=== PATIENT | male | born 1935 | race Caucasian/White ===

== ENCOUNTER 2019-11-03 20:17 | Inpatient (IN) | payer MEDICARE, BC ==
[2019-11-03] MEDS ORDERED: SODIUM CHLORIDE 0.9% 500 ML 500 ML IV ONE (21:07)
--- NOTE | 2019-11-03 21:28 | CT ---
EXAMINATION TYPE: CT brain wo con DATE OF EXAM: 11/03/2019 COMPARISON: None HISTORY: Weakness CT DLP: 1068.4 mGycm Automated exposure control for dose reduction was used. Head CT performed using departmental protocol FINDINGS: Cerebral vascular calcifications are present. There is cortical atrophy present. Periventricular whit e matter shows patchy low attenuation. Calvarium is intact. Paranasal sinuses and mastoid air cells a s visualized are normal. There is no hemorrhage or hydrocephalus. IMPRESSION: AGE-RELATED CHANGES OF ATROPHY AND PROBABLE CHRONIC SMALL VESSEL ISCHEMIA.
--- NOTE | 2019-11-03 21:29 | XR ---
EXAMINATION TYPE: XR chest 2V DATE OF EXAM: 11/03/2019 COMPARISON: NONE HISTORY: Altered mental status TECHNIQUE: Frontal and lateral views of the chest are obtained. FINDINGS: The heart is enlarged. There is blunting the costophrenic angles, obscured left heart bord er, left hemidiaphragm. No evident pneumothorax. Interstitium and central vascularity are prominent. There are leads present over the midline coursing towards the neck from inferiorly to the area scanne d. Generators present within the left pectoral region. There is a lead in the right ventricle. Aorta is dense. IMPRESSION: Congestive heart failure, sizable left pleural effusion and associated atelectasis, pneu monia not excluded. Postprocedural changes.
[2019-11-03 22:00] LABS: Anisocytosis Slight; Basophils # (A) 0.1 k/uL (0-0.2); Basophils % (A) 1 %; Eosinophils # (A) 0.6 k/uL (0-0.7); Eosinophils % (A) 4 %; HCT 40.9 % (39.0-53.0); HGB 12.8 gm/dL (13.0-17.5); Hypochromasia Moderate; Lymphocytes # (A) 5.2 k/uL (1.0-4.8); Lymphocytes % (A) 41 %; MCH 26.7 pg (25.0-35.0); MCHC 31.4 g/dL (31.0-37.0); MCV 85.1 fL (80.0-100.0); Mean Platelet Volume 7.6; Monocytes # (A) 0.8 k/uL (0-1.0); Monocytes % (A) 6 %; Neutrophils # (A) 5.7 k/uL (1.3-7.7); Neutrophils % (A) 45 %; Platelet Count 372 k/uL (150-450); RDW 16.3 % (11.5-15.5); WBC 12.8 k/uL (3.8-10.6)
[2019-11-03 22:09] LABS: Appearance,Urine Clear (Clear); Bacteria,Urine Moderate /hpf; Bilirubin,Urine Negative (Negative); Blood,Urine Negative (Negative); Color,Urine Yellow; Glucose,Urine (UA) Negative (Negative); Hyaline Casts,Urine 77 /lpf (0-2); Ketones,Urine Negative (Negative); Leukocyte Esterase,Urine Large (Negative); Mucus,Urine Rare /hpf; Nitrite,Urine Negative (Negative); PH, Urine 5.5 (5.0-8.0); Protein,Urine Negative (Negative); RBC,Urine 1 /hpf (0-5); Specific Gravity,Urine 1.011 (1.001-1.035); Squamous Epithelial Cell,Urine <1 /hpf (0-4); Urobilinogen,Urine <2.0 mg/dL (<2.0); WBC,Urine 27 /hpf (0-5)
[2019-11-03 22:10] LABS: Albumin 3.3 g/dL (3.5-5.0); Calcium 8.7 mg/dL (8.4-10.2); Potassium 3.8 mmol/L (3.5-5.1); Total Bilirubin 0.8 mg/dL (0.2-1.3); Total Protein 6.2 g/dL (6.3-8.2)
[2019-11-03 22:15] LABS: Partial Thromboplastin Time 26.1 sec (22.0-30.0); Prothrombin Time 10.6 sec (9.0-12.0)
[2019-11-03 22:21] LABS: Amphetamine Screen,Urine Not Detected (NotDetected); Barbiturate Screen,Urine Not Detected (NotDetected); Benzodiazepines Screen,Urine Not Detected (NotDetected); Cocaine Screen,Urine Not Detected (NotDetected); Methadone Screen, Urine Not Detected (NotDetected); Opiate Screen,Urine Detected (NotDetected); Oxycodone Screen, Urine Not Detected (NotDetected); Phencyclidine Screen,Urine Not Detected (NotDetected); Tricyclic Antidepressant,Urine Not Detected (NotDetected); Urn Cannabinoid Scrn Not Detected (NotDetected)
[2019-11-03] MEDS ORDERED: NALOXONE 0.4 MG/ML 1 ML VIAL IV PRN (23:29)
[2019-11-03] MEDS ORDERED: FUROSEMIDE 10 MG/ML 2 ML VIAL IV ONE (23:32)
--- NOTE | 2019-11-03 23:33 | ED ---
General Adult HPI - General Chief complaint: Altered Mental Status Stated complaint: Altered Mental Status Time Seen by Provider: 11/03/19 20:42 Source: patient, family, RN notes reviewed, old records reviewed Mode of arrival: wheelchair Limitations: altered mental status, physical limitation - History of Present Illness Initial comments: 84-year-old male patient past history CHF, COPD present to ED with daughter. Daughter reports that patient has been more tired than usual today. Patient states that he feels dizzy. Denies any focal area of pain. Denies any nausea vomiting diarrhea chest pain shortness of breath abdominal pain. Systemic: Pt denies fatigue, fever/chills, rash. Pt denies weakness, night sweats, weight loss. Neuro: Pt denies headache, visual disturbances, syncope or pre-syncope. HEENT: Pt denies ocular discharge or irritation, otalgia, rhinorrhea, pharyngitis or notable lymphadenopathy. Cardiopulmonary: Pt denies chest pain, SOB, heart palpitations, dyspnea on exertion. Abdominal/GI: Pt denies abdominal pain, n/v/d. : Pt denies dysuria, burning w/ urination, frequency/urgency. Denies new onset urinary or bowel incontinence. MSK: Pt denies myalgia, loss of strength or function in extremities. Neuro: Pt denies new onset weakness, paresthesias. - Related Data Allergies Allergy/AdvReac Type Severity Reaction Status Date / Time No Known Allergies Allergy Verified 11/03/19 20:29 Review of Systems ROS Statement: Those systems with pertinent positive or pertinent negative responses have been documented in the HPI. ROS Other: All systems not noted in ROS Statement are negative. Past Medical History Past Medical History: Heart Failure, COPD History of Any Multi-Drug Resistant Organisms: None Reported Additional Past Surgical History / Comment(s): pace maker 07/2019 Past Psychological History: No Psychological Hx Reported Smoking Status: Former smoker Past Alcohol Use History: None Reported Past Drug Use History: None Reported General Exam - General Exam Comments Initial Comments: Constitutional: NAD, AOX3, Pt has pleasant affect. HEENT: NC/AT, trachea midline, neck supple, no lymphadenopathy. Posterior pharynx non erythematous, without exudates. External ears appear normal, without discharge. Mucous membranes moist. Eyes PERRLA, EOM intact. There is no scleral icterus. No pallor noted. Cardiopulmonary: RRR, no murmurs, rubs or gallops, no JVD noted. Lower lung harp diminished left-sided.. No peripheral edema. Abdominal exam: Abdomen soft and non-distended. Abdomen non-tender to palpation in all 4 quadrants. Bowel sounds active in LLQ. No hepatosplenomegaly. No ecchymosis Neuro: CN II-XII intact. No nuchal rigidity. No raccon eyes, no mckeon sign, no hemotympanum. No cervical spinal tenderness. MSK: No posterior calf tenderness bilaterally, homans sign negative bilaterally. Posterior tibialis and radial pulse +2 bilaterally. Sensation intact in upper and lower extremities. Full active ROM in upper and lower extremities, 5/5 stregnth. Limitations: altered mental status, physical limitation Course Vital Signs 11/03/19 11/03/19 20:22 21:51 Temperature 98 F Pulse Rate 79 66 Respiratory 18 18 Rate Blood Pressure 87/54 120/66 O2 Sat by Pulse 96 95 Oximetry Medical Decision Making - Medical Decision Making 84-year-old male patient past history CHF, COPD present to ED with daughter. Daughter reports that patient has been more tired than usual today. Patient states that he feels dizzy. Denies any focal area of pain. Denies any nausea vomiting diarrhea chest pain shortness of breath abdominal pain. Pt VSS, afebrile. Physical exam displayed: Mild hypotension initially, stable at time of admission. Physical exam displayed diminish lower lung harp left side, other lung harp clear to ascultation. Laboratory investigations significant for mild leukocytosis of 12. Troponin negative. UA displayed urinary tract infection. Patient initiated on Rocephin. Brain CT displayed age-related changes of atrophy and probable chronic small vessel ischemia. Chest x-ray displayed congestive heart failure sizable left pleural effusion with associated atelectasis. EKG displayed paced rhythm. No prior for comparision. Patient will be admitted admitted for urinary tract infection, CHF exacerbation. Patient has no lower extremity edema. With administrated dose of Lasix. Case discussed with Dr. Hernandez. - Lab Data Result diagrams: 11/03/19 21:35 11/03/19 21:35 Lab Results 11/03/19 11/03/19 11/03/19 Range/Units 21:35 21:35 21:35 WBC 12.8 H (3.8-10.6) k/uL RBC 4.80 (4.30-5.90) m/uL Hgb 12.8 L (13.0-17.5) gm/dL Hct 40.9 (39.0-53.0) % MCV 85.1 (80.0-100.0) fL MCH 26.7 (25.0-35.0) pg MCHC 31.4 (31.0-37.0) g/dL RDW 16.3 H (11.5-15.5) % Plt Count 372 (150-450) k/uL Neutrophils % 45 % Lymphocytes % 41 % Monocytes % 6 % Eosinophils % 4 % Basophils % 1 % Neutrophils # 5.7 (1.3-7.7) k/uL Lymphocytes # 5.2 H (1.0-4.8) k/uL Monocytes # 0.8 (0-1.0) k/uL Eosinophils # 0.6 (0-0.7) k/uL Basophils # 0.1 (0-0.2) k/uL Manual Slide Review Performed Hypochromasia Moderate Anisocytosis Slight PT 10.6 (9.0-12.0) sec INR 1.0 (<1.2) APTT 26.1 (22.0-30.0) sec Sodium (137-145) mmol/L Potassium (3.5-5.1) mmol/L Chloride (98-107) mmol/L Carbon Dioxide (22-30) mmol/L Anion Gap mmol/L BUN (9-20) mg/dL Creatinine (0.66-1.25) mg/dL Est GFR (CKD-EPI)AfAm (>60 ml/min/1.73 sqM) Est GFR (CKD-EPI)NonAf (>60 ml/min/1.73 sqM) Glucose (74-99) mg/dL Calcium (8.4-10.2) mg/dL Total Bilirubin (0.2-1.3) mg/dL AST (17-59) U/L ALT (4-49) U/L Alkaline Phosphatase (38-126) U/L Ammonia (<30) umol/L Troponin I (0.000-0.034) ng/mL Total Protein (6.3-8.2) g/dL Albumin (3.5-5.0) g/dL Urine Color Yellow Urine Appearance Clear (Clear) Urine pH 5.5 (5.0-8.0) Ur Specific [place] 1.011 (1.001-1.035) Urine Protein Negative (Negative) Urine Glucose (UA) Negative (Negative) Urine Ketones Negative (Negative) Urine Blood Negative (Negative) Urine Nitrite Negative (Negative) Urine Bilirubin Negative (Negative) Urine Urobilinogen <2.0 (<2.0) mg/dL Ur Leukocyte Esterase Large H (Negative) Urine RBC 1 (0-5) /hpf Urine WBC 27 H (0-5) /hpf Ur Squamous Epith Cells <1 (0-4) /hpf Urine Bacteria Moderate H (None) /hpf Hyaline Casts 77 H (0-2) /lpf Urine Mucus Rare H (None) /hpf Urine Opiates Screen Detected H (NotDetected) Ur Oxycodone Screen Not Detected (NotDetected) Urine Methadone Screen Not Detected (NotDetected) Ur Propoxyphene Screen Not Detected (NotDetected) Ur Barbiturates Screen Not Detected (NotDetected) U Tricyclic Antidepress Not Detected (NotDetected) Ur Phencyclidine Scrn Not Detected (NotDetected) Ur Amphetamines Screen Not Detected (NotDetected) U Methamphetamines Scrn Not Detected (NotDetected) U Benzodiazepines Scrn Not Detected (NotDetected) Urine Cocaine Screen Not Detected (NotDetected) U Marijuana (THC) Screen Not Detected (NotDetected) 11/03/19 11/03/19 11/03/19 Range/Units 21:35 21:35 21:35 WBC (3.8-10.6) k/uL RBC (4.30-5.90) m/uL Hgb (13.0-17.5) gm/dL Hct (39.0-53.0) % MCV (80.0-100.0) fL MCH (25.0-35.0) pg MCHC (31.0-37.0) g/dL RDW (11.5-15.5) % Plt Count (150-450) k/uL Neutrophils % % Lymphocytes % % Monocytes % % Eosinophils % % Basophils % % Neutrophils # (1.3-7.7) k/uL Lymphocytes # (1.0-4.8) k/uL Monocytes # (0-1.0) k/uL Eosinophils # (0-0.7) k/uL Basophils # (0-0.2) k/uL Manual Slide Review Hypochromasia Anisocytosis PT (9.0-12.0) sec INR (<1.2) APTT (22.0-30.0) sec Sodium 137 (137-145) mmol/L Potassium 3.8 (3.5-5.1) mmol/L Chloride 100 (98-107) mmol/L Carbon Dioxide 30 (22-30) mmol/L Anion Gap 7 mmol/L BUN 17 (9-20) mg/dL Creatinine 1.05 (0.66-1.25) mg/dL Est GFR (CKD-EPI)AfAm 74 (>60 ml/min/1.73 sqM) Est GFR (CKD-EPI)NonAf 64 (>60 ml/min/1.73 sqM) Glucose 115 H (74-99) mg/dL Calcium 8.7 (8.4-10.2) mg/dL Total Bilirubin 0.8 (0.2-1.3) mg/dL AST 21 (17-59) U/L ALT 9 (4-49) U/L Alkaline Phosphatase 92 (38-126) U/L Ammonia <9 (<30) umol/L Troponin I <0.012 (0.000-0.034) ng/mL Total Protein 6.2 L (6.3-8.2) g/dL Albumin 3.3 L (3.5-5.0) g/dL Urine Color Urine Appearance (Clear) Urine pH (5.0-8.0) Ur Specific [place] (1.001-1.035) Urine Protein (Negative) Urine Glucose (UA) (Negative) Urine Ketones (Negative) Urine Blood (Negative) Urine Nitrite (Negative) Urine Bilirubin (Negative) Urine Urobilinogen (<2.0) mg/dL Ur Leukocyte Esterase (Negative) Urine RBC (0-5) /hpf Urine WBC (0-5) /hpf Ur Squamous Epith Cells (0-4) /hpf Urine Bacteria (None) /hpf Hyaline Casts (0-2) /lpf Urine Mucus (None) /hpf Urine Opiates Screen (NotDetected) Ur Oxycodone Screen (NotDetected) Urine Methadone Screen (NotDetected) Ur Propoxyphene Screen (NotDetected) Ur Barbiturates Screen (NotDetected) U Tricyclic Antidepress (NotDetected) Ur Phencyclidine Scrn (NotDetected) Ur Amphetamines Screen (NotDetected) U Methamphetamines Scrn (NotDetected) U Benzodiazepines Scrn (NotDetected) Urine Cocaine Screen (NotDetected) U Marijuana (THC) Screen (NotDetected) - EKG Data -: EKG Interpreted by Me EKG Comments: Ventricular rate 67, QRS 1:30, QT/QTc 456/481. Paced rhythm. Disposition Clinical Impression: UTI (urinary tract infection), CHF exacerbation Disposition: ADMITTED IP TO THIS HOSP Condition: Serious Is patient prescribed a controlled substance at d/c from ED?: No Referrals: Jerrell Lewis DO [Primary Care Provider] - 1-2 days
[2019-11-04] MEDS ORDERED: POTASSIUM CHLORIDE ER 20 MEQ TAB.ER PO STA (10:31)
[2019-11-04 10:56] VITALS: BMI 22.6
[2019-11-04] MEDS: FUROSEMIDE 10 MG/ML 4 ML VIAL IV SCH ×2 (11:37→20:57)
--- NOTE | 2019-11-04 12:24 | CONS ---
CONSULTATION REASON FOR CONSULTATION: Exacerbation of congestive heart failure and pleural effusion. Mr. Daniel Silva is an 84-year-old gentleman who is not a very good historian, does not seem to give me any meaningful history. He has had most of his care apparently in the [place] area. He has a pacemaker and I am not sure if this has been checked regularly or not and the indication for this device. He came into the hospital mainly with complaints of dizziness, lightheadedness and had some shortness of breath also. He came into the emergency room and daughter brought him in saying that he is exhausted, tired and dizzy. He also had some confusion. He denied any chest discomfort. There was some question of shortness of breath. PAST MEDICAL HISTORY: 1. Sick sinus syndrome with a permanent pacemaker details are unclear. 2. History of CHF and COPD. ALLERGIES: None. MEDICATIONS: At home according to the chart include Motrin, Lopressor 25 mg b.i.d., Lasix 20 mg b.i.d., omeprazole, Flomax 0.4 mg daily, Dilaudid p.r.n. 1 mg tablet and Neurontin. PHYSICAL EXAMINATION: On examination, blood pressure is 140/70, pulse rate is 70 per minute, regular, paced. HEENT: Unremarkable. Fundus was not examined by me. NECK: Supple. There is JVD of 1 cm. No carotid bruit. HEART exam reveals S1, S2 with a short systolic murmur. LUNGS revealed significantly diminished breath sounds on the left mid and lower zones suggestive of pleural effusion with dullness to percussion. Right-sided breath sounds are reasonably good. ABDOMEN is soft, nontender. LOWER EXTREMITIES reveal diminished pulses. CENTRAL NERVOUS SYSTEM grossly within normal limits. I did not do a detailed examination. Patient appears a bit confused. LABORATORY DATA: Suggests that the proBNP is 4770. Initial troponin is normal. Albumin is somewhat low. Potassium levels and renal function appears to be normal. IMPRESSION: 1. Exacerbation of systolic heart failure. 2. Left-sided pleural effusion based on clinical and x-ray evaluation. 3. Sick sinus syndrome with pacemaker details unavailable. RECOMMENDATION: I am recommending an echocardiogram to assess LV function. A pulmonary evaluation for the left pleural effusion, possible thoracentesis. We will give him IV Lasix 40 q.12 hours and check a BMP in the morning. Based on clinical course I will make further recommendations. Most of his medications including the beta alexandre have been resumed. Thank you very much for the consult. MMODL / IJN: [id number] /
--- NOTE | 2019-11-04 12:55 | US ---
EXAMINATION TYPE: US chest DATE OF EXAM: 11/04/2019 COMPARISON: NONE CLINICAL HISTORY: Markings for thoracentesis by pulmonary staff. TECHNIQUE: Targeted ultrasound of the posterior lower left hemithorax EXAM MEASUREMENTS: Left Pleural Effusion pocket size: 10.8 cm Left skin surface to fluid distance: 1.9 cm Left side marked for possible thoracentesis outside the dept. Pulmonologists are able to review the images in the patient?s EMR. IMPRESSIONS: Large left pleural effusion with greatest depth measured at 10.8 cm.
[2019-11-04] MEDS ORDERED: HYDROmorphone 2 MG TAB PO PRN (13:18)
[2019-11-04] MEDS ORDERED: ACETAMINOPHEN TAB 325 MG TAB PO PRN (13:28)
--- NOTE | 2019-11-04 14:24 | P.HPIM ---
History of Present Illness 84-year-old pleasant male with possible history of dementia, history of CHF COPD was brought in because patient was confused. Patient is almost alert oriented 2-3 , patient believes it's 2001. Patient was feeling dizzy as well was complaining of shortness of breath along with orthopnea unable to get the history of proximal nocturnal dyspnea was comparing of cough without sputum production patient denied any fever chills dysuria patient does have leukocytosis mildly abnormal urine but no symptoms of urinary tract infection. Review of Systems REVIEW OF SYSTEMS: CONSTITUTIONAL: No fever, no malaise, no fatigue. HEENT: No recent visual problems or hearing problems. Denied any sore throat. CARDIOVASCULAR: no palpitations, no syncope. PULMONARY: no hemoptysis. GASTROINTESTINAL: No diarrhea, no nausea, no vomiting, no abdominal pain. NEUROLOGICAL: No headaches, no weakness, no numbness. HEMATOLOGICAL: Denies any bleeding or petechiae. GENITOURINARY: Denies any burning micturition, frequency, or urgency. MUSCULOSKELETAL/RHEUMATOLOGICAL: Denies any joint pain, swelling, or any muscle pain. ENDOCRINE: Denies any polyuria or polydipsia. The rest of the 14-point review of systems is negative. Past Medical History Past Medical History: Heart Failure, COPD History of Any Multi-Drug Resistant Organisms: None Reported Additional Past Surgical History / Comment(s): pace maker 07/2019 Past Psychological History: No Psychological Hx Reported Smoking Status: Former smoker Past Alcohol Use History: None Reported Past Drug Use History: None Reported Medications and Allergies Home Medications Medication Instructions Recorded Confirmed Type DULoxetine HCL [Cymbalta] 20 mg PO DAILY 11/04/19 11/04/19 History Furosemide [Lasix] 20 mg PO BID 11/04/19 11/04/19 History Gabapentin [Neurontin] 400 mg PO TID 11/04/19 11/04/19 History HYDROmorphone [Dilaudid] 1 mg PO QID PRN 11/04/19 11/04/19 History Ibuprofen [Motrin Ib] 600 mg PO BID PRN 11/04/19 11/04/19 History Metoprolol Tartrate [Lopressor] 25 mg PO BID 11/04/19 11/04/19 History Omeprazole 20 mg PO [id number] 11/04/19 11/04/19 History Tamsulosin HCl [Flomax] 0.4 mg PO HS 11/04/19 11/04/19 History Allergies Allergy/AdvReac Type Severity Reaction Status Date / Time No Known Allergies Allergy Verified 11/03/19 20:29 Physical Exam Vitals: Vital Signs Temp Pulse Pulse Resp BP BP Pulse Ox 11/04/19 07:45 98.2 F 74 17 148/79 96 11/04/19 06:00 77 20 109/88 95 11/04/19 05:30 84 20 124/87 96 11/04/19 05:00 70 18 143/66 95 11/04/19 04:30 73 20 122/90 95 11/04/19 04:22 71 18 122/90 96 11/04/19 03:00 79 18 175/86 11/04/19 02:31 79 18 116/71 11/04/19 00:03 71 18 121/71 95 11/03/19 21:51 66 18 120/66 95 11/03/19 20:22 98 F 79 18 87/54 96 Intake and Output 11/03/19 11/04/19 11/04/19 22:59 06:59 14:59 Other: Voiding Method Urinal Weight 67.585 kg 67.585 kg PHYSICAL EXAMINATION: GENERAL: The patient is alert and oriented x3, not in any acute distress. Well developed, well nourished. HEENT: Pupils are round and equally reacting to light. EOMI. No scleral icterus. No conjunctival pallor. Normocephalic, atraumatic. No pharyngeal erythema. No thyromegaly. CARDIOVASCULAR: S1 and S2 present. No murmurs, rubs, or gallops. PULMONARY:Mr. crackles no wheezing was appreciated ABDOMEN: Soft, nontender, nondistended, normoactive bowel sounds. No palpable organomegaly. MUSCULOSKELETAL: No joint swelling or deformity. EXTREMITIES: No cyanosis, clubbing, or pedal edema. NEUROLOGICAL: Gross neurological examination did not reveal any focal deficits. SKIN: No rashes. Results CBC & Chem 7: 11/03/19 21:35 11/03/19 21:35 Labs: Abnormal Lab Results - Last 24 Hours (Table) 11/03/19 11/03/19 11/03/19 Range/Units 21:35 21:35 21:35 WBC 12.8 H (3.8-10.6) k/uL Hgb 12.8 L (13.0-17.5) gm/dL RDW 16.3 H (11.5-15.5) % Lymphocytes # 5.2 H (1.0-4.8) k/uL Glucose 115 H (74-99) mg/dL Total Protein 6.2 L (6.3-8.2) g/dL Albumin 3.3 L (3.5-5.0) g/dL Ur Leukocyte Esterase Large H (Negative) Urine WBC 27 H (0-5) /hpf Urine Bacteria Moderate H (None) /hpf Hyaline Casts 77 H (0-2) /lpf Urine Mucus Rare H (None) /hpf Urine Opiates Screen Detected H (NotDetected) Microbiology - Last 24 Hours (Table) 11/03/19 21:35 Urine Culture - Preliminary Urine,Clean Catch Assessment and Plan Plan: -altered mental status secondary to metabolic encephalopathy from heart failure exacerbation. Patient will continued on Lasix -Shortness of breath and acute hypoxic respiratory failure secondary to bilateral pleural effusion predominantly in the left side left side may need drainage. Patient probably has heart failure exacerbation. 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
[2019-11-04] MEDS: GABAPENTIN 400 MG CAP PO SCH ×2 (17:10→20:57)
[2019-11-04] MEDS: ENOXAPARIN 40 MG/0.4 ML SYRINGE SQ SCH (17:10)
[2019-11-04] MEDS: METOPROLOL TARTRATE 12.5 MG TAB PO SCH (20:57)
[2019-11-04] MEDS: TAMSULOSIN 0.4 MG CAP.ER.24H PO SCH (20:57)
[2019-11-05] MEDS: FUROSEMIDE 10 MG/ML 4 ML VIAL IV SCH ×2 (08:49→21:22)
[2019-11-05] MEDS: ENOXAPARIN 40 MG/0.4 ML SYRINGE SQ SCH (08:50)
[2019-11-05] MEDS: PANTOPRAZOLE 40 MG TABLET PO SCH (08:50)
[2019-11-05] MEDS: GABAPENTIN 400 MG CAP PO SCH ×3 (08:50→21:21)
[2019-11-05] MEDS: METOPROLOL TARTRATE 12.5 MG TAB PO SCH ×2 (08:50→21:22)
[2019-11-05] MEDS: DULoxetine HCL 20 MG CAPSULE.DR PO SCH (08:50)
[2019-11-05 08:55] LABS: Anisocytosis Slight; Basophils # (A) 0.1 k/uL (0-0.2); Basophils % (A) 1 %; Eosinophils # (A) 0.3 k/uL (0-0.7); Eosinophils % (A) 2 %; Hypochromasia Marked; Lymphocytes # (A) 4.8 k/uL (1.0-4.8); Lymphocytes % (A) 36 %; MCH 27.3 pg (25.0-35.0); MCHC 31.9 g/dL (31.0-37.0); MCV 85.6 fL (80.0-100.0); Mean Platelet Volume 8.3; Monocytes # (A) 0.8 k/uL (0-1.0); Monocytes % (A) 6 %; Neutrophils # (A) 6.8 k/uL (1.3-7.7); Neutrophils % (A) 52 %; Platelet Count 419 k/uL (150-450); Poikilocytosis Slight; RBC 5.14 m/uL (4.30-5.90); WBC 13.2 k/uL (3.8-10.6)
[2019-11-05 09:26] LABS: Calcium 9.2 mg/dL (8.4-10.2); Potassium 3.3 mmol/L (3.5-5.1)
--- NOTE | 2019-11-05 10:05 | P.CNPUL ---
History of Present Illness Consult date: 11/05/19 Requesting physician: Leandra Hough Reason for consult: dyspnea, abnormal CXR/CT Chief complaint: Fatigue, dizziness History of present illness: this is an 84-year-old gentleman who follows with Dr. Naranjo as his PCP. He has a history of congestive heart failure, per minutes pacemaker implantation in July 2019, chronic obstructive pulmonary disease, former smoker.He has somewhat of a poor historian. He was brought into the emergency room on 11/03/2019 by his daughter with complaints of fatigue and dizziness.computed tomography scan of the brain revealed age-related atrophy and probable chronic small vessel ischemia but no acute intracranial abnormalities.chest x-ray did reveal a moderate left-sided pleural effusionand evidence of congestive heart failure. Associated atelectasis. Ultrasound of the left chest did reveal a 10.8 cm pocket. The patient is being diuresed. He requested to try medication prior to having a thoracentesis performed. White count 13.2. Hemoglobin 14.0. Sodium 140. Potassium 3.3. Creatinine 0.98. He is currently on Lasix 40 mg IV every 12 hours.no accurate I&O. The patient is incontinent. he is currently quite comfortable at rest. He is maintaining O2 saturations at 98% on room air. He's afebrile. Hemodynamically stable. Review of Systems REVIEW OF SYSTEMS: CONSTITUTIONAL: Fatigue, dizziness. Denies any recent significant weight loss or weight gain. EYES: Denies change in vision. EARS, NOSE, MOUTH, THROAT: Denies headaches, denies sore throat. CARDIOVASCULAR: Denies chest pain, palpitations or syncopal episodes. RESPIRATORY: Denies shortness of breath, cough, congestion or hemoptysis. GASTROINTESTINAL: Denies change in appetite, denies abdominal pain GENITOURINARY: Denies hematuria, denies infections. MUSKULOSKELETAL: Denies pain, denies swelling. INTEGUMENTARY: Denies rash, denies eczema. NEUROLOGICAL: Denies recent memory loss, no recent seizure activity. PSYCHIATRIC: Denies anxiety, denies depression. HEMATOLOGIC/LYMPHATIC: Denies anemia, denies enlarged lymph nodes. Past Medical History Past Medical History: Heart Failure, COPD History of Any Multi-Drug Resistant Organisms: None Reported Additional Past Surgical History / Comment(s): pace maker 07/2019 Past Psychological History: No Psychological Hx Reported Smoking Status: Former smoker Past Alcohol Use History: None Reported Past Drug Use History: None Reported Medications and Allergies Home Medications Medication Instructions Recorded Confirmed Type DULoxetine HCL [Cymbalta] 20 mg PO DAILY 11/04/19 11/04/19 History Furosemide [Lasix] 20 mg PO BID 11/04/19 11/04/19 History Gabapentin [Neurontin] 400 mg PO TID 11/04/19 11/04/19 History HYDROmorphone [Dilaudid] 1 mg PO QID PRN 11/04/19 11/04/19 History Ibuprofen [Motrin Ib] 600 mg PO BID PRN 11/04/19 11/04/19 History Metoprolol Tartrate [Lopressor] 25 mg PO BID 11/04/19 11/04/19 History Omeprazole 20 mg PO AC-[id number] 11/04/19 11/04/19 History Tamsulosin HCl [Flomax] 0.4 mg PO HS 11/04/19 11/04/19 History Allergies Allergy/AdvReac Type Severity Reaction Status Date / Time No Known Allergies Allergy Verified 11/03/19 20:29 Physical Exam Vitals: Vital Signs Temp Pulse Resp BP BP Pulse Ox 11/05/19 07:28 97.9 F 109 H 18 130/67 98 11/05/19 02:00 97.7 F 88 20 105/68 94 L 11/05/19 00:00 17 11/04/19 20:00 95 17 11/04/19 19:46 98 F 95 17 108/66 96 11/04/19 14:18 97.9 F 94 17 119/76 91 L Intake and Output 11/04/19 11/05/19 11/05/19 22:59 06:59 14:59 Intake Total 0 Balance 0 Intake: Oral 0 Other: Voiding Method Urinal Urinal Diaper Diaper Incontinent Incontinent # Voids 1 2 # Bowel Movements 1 Weight 67.585 kg GENERAL EXAM: Alert, pleasant 84-year-old gentleman, on room air,, comfortable in no apparent distress. HEAD: Normocephalic. EYES: Normal reaction of pupils, equal size. NOSE: Clear with pink turbinates. THROAT: No erythema or exudates. NECK: No masses, no JVD. CHEST: No chest wall deformity. LUNGS: Equal air entry with basilar crackles more so on the left, dull, diminish ed. CVS: S1 and S2 normal with no audible murmur, regular rhythm. ABDOMEN: No hepatosplenomegaly, normal bowel sounds, no guarding or rigidity. SPINE: No scoliosis or deformity SKIN: No rashes CENTRAL NERVOUS SYSTEM: No focal deficits, tone is normal in all 4 extremities. EXTREMITIES: There is no peripheral edema. No clubbing, no cyanosis. Peripheral pulses are intact. Results - Laboratory Findings CBC and BMP: 11/05/19 08:02 11/05/19 08:02 PT/INR, D-dimer PT 10.6 sec (9.0-12.0) 11/03/19 21:35 INR 1.0 (<1.2) 11/03/19 21:35 Abnormal lab findings: Abnormal Labs 11/03/19 11/03/19 11/03/19 21:35 21:35 21:35 WBC 12.8 H Hgb 12.8 L RDW 16.3 H Lymphocytes # 5.2 H Potassium Glucose 115 H Total Protein 6.2 L Albumin 3.3 L Ur Leukocyte Esterase Large H Urine WBC 27 H Urine Bacteria Moderate H Hyaline Casts 77 H Urine Mucus Rare H Urine Opiates Screen Detected H 11/05/19 11/05/19 08:02 08:02 WBC 13.2 H Hgb RDW 16.0 H Lymphocytes # Potassium 3.3 L Glucose 150 H Total Protein Albumin Ur Leukocyte Esterase Urine WBC Urine Bacteria Hyaline Casts Urine Mucus Urine Opiates Screen - Diagnostic Findings Chest x-ray: image reviewed Assessment and Plan Assessment: 1 Acute exacerbation of her suspected systolic congestive heart failure 2 Moderate left-sided pleural effusion measuring 10.8 cm on ultrasound 3 History of sick sinus syndrome status post permanent pacemaker implantation 4 History of chronic obstructive pulmonary disease 5 History ofprevious chronic tobacco dependence 6 Dementia Plan: The patient was seen and evaluated by Dr. Villeda Chest x-ray, ultrasound and labs reviewed The patient is in no pulmonary distress On room air We'll continue with diuretics Hold off on thoracentesis for now per patient request We'll continue to follow and make further recommendations based on his clinical status I, the cosigning physician, performed a history & physical examination of the patient. Lungs sounds with crackles in the posterior bases left greater than right, dullness, diminished. Maintaining good O2 saturations in the 90s on room air. I discussed the assessment and plan of care with my nurse practitioner, Gricelda Dunbar. I attest to the above consultation as dictated by her. Time with Patient: Greater than 30
--- NOTE | 2019-11-05 15:25 | P.PN ---
Subjective Progress Note Date: 11/05/19 Principal diagnosis: 84-year-old pleasant male with possible history of dementia, history of CHF COPD was brought in because patient was confused. Patient is almost alert oriented 2-3 , patient believes it's 2001. Patient was feeling dizzy as well was complaining of shortness of breath along with orthopnea unable to get the history of proximal nocturnal dyspnea was comparing of cough without sputum production patient denied any fever chills dysuria patient does have leukoc ytosis mildly abnormal urine but no symptoms of urinary tract infection. 11/05/2019 Patient is seen and evaluated in follow-up today and is lethargic but arousable. Patient is alert and oriented 3 responding to questions and commands appropriately. Patient continues to have some shortness of breath with exertion and is being evaluated by pulmonary. Patient underwent a chest ultrasound showing a large left pleural effusion. Patient is currently being diuresed with IV Lasix 40 mg twice daily and will continue at this time. Discussion of possible thoracentesis in the future if no improvement with diuresis. Initial urine culture showing preliminary gram-negative bacilli. Patient is asym ptomatic of any dysuria and will repeat urine culture. Currently no reports of chest pain or palpitations. Patient is afebrile. No reports of nausea or vomiting and patient is tolerating diet. Physical therapy to evaluate the patient. Objective - Vital Signs Vital signs: Vital Signs Temp 97.9 F 11/05/19 07:28 Pulse 109 H 11/05/19 07:28 Resp 18 11/05/19 07:28 BP 130/67 11/05/19 07:28 Pulse Ox 98 11/05/19 07:28 Intake & Output 11/04/19 11/05/19 11/05/19 18:59 06:59 18:59 Intake Total 0 Output Total 200 Balance -200 0 Weight 67.585 kg 67.585 kg Intake: Oral 0 Output: Urine 200 Other: Voiding Method Urinal Urinal Urinal Diaper Diaper Incontinent Incontinent # Voids 2 # Bowel Movements 1 - Exam GENERAL: The patient is alert and oriented x3, not in any acute distress. Well developed, well nourished. HEENT: Pupils are round and equally reacting to light. EOMI. No scleral icterus. No conjunctival pallor. Normocephalic, atraumatic. No pharyngeal erythema. No thyromegaly. CARDIOVASCULAR: S1 and S2 present. No murmurs, rubs, or gallops. PULMONARY: Diminished breath sounds at the bases with some scattered crackles noted. No wheezing noted on exam ABDOMEN: Soft, nontender, nondistended, normoactive bowel sounds. No palpable organomegaly. MUSCULOSKELETAL: No joint swelling or deformity. EXTREMITIES: No cyanosis, clubbing, or pedal edema. NEUROLOGICAL: Gross neurological examination did not reveal any focal deficits. SKIN: No rashes. - Labs CBC & Chem 7: 11/05/19 08:02 11/05/19 08:02 Labs: Abnormal Lab Results - Last 24 Hours (Table) 11/05/19 11/05/19 Range/Units 08:02 08:02 WBC 13.2 H (3.8-10.6) k/uL RDW 16.0 H (11.5-15.5) % Potassium 3.3 L (3.5-5.1) mmol/L Glucose 150 H (74-99) mg/dL Microbiology - Last 24 Hours (Table) 11/03/19 21:35 Urine Culture - Preliminary Urine,Clean Catch Gram Neg Bacilli 11/03/19 22:59 Blood Culture - Preliminary Blood No Growth after 24 hours Assessment and Plan Assessment: -altered mental status secondary to metabolic encephalopathy from heart failure exacerbation. Patient remains on IV Lasix 40 mg twice daily -Shortness of breath and acute hypoxic respiratory failure secondary to bilateral pleural effusion predominantly in the left side left side may need drainage. Patient probably has heart failure exacerbation. Will continue with IV diuresis at this time. Pulmonary following. -congestive heart failure possibly of chronic systolic dysfunction with acute exacerbation echocardiogram will be obtained continue with Lasix -asymptomatic bacteriuria without any evidence of urinary tract infection, urine culture preliminary showing gram-negative bacilli, will repeat urine culture, patient denies any symptoms of dysuria or burning with urination -COPD without any acute exacerbation -history of bradycardia , presently has a pacemaker which was placed inflammatory 2019 -depression -Gastroesophageal reflux disease -Peripheral neuropathy for which patient is on gabapentin which will be continued -Possible senile dementia - DVT prophylaxis with the Lovenox subcutaneous
[2019-11-05] MEDS: TAMSULOSIN 0.4 MG CAP.ER.24H PO SCH (21:21)
[2019-11-06] MEDS: FUROSEMIDE 10 MG/ML 4 ML VIAL IV SCH ×2 (07:50→20:14)
[2019-11-06] MEDS: ENOXAPARIN 40 MG/0.4 ML SYRINGE SQ SCH (07:51)
[2019-11-06] MEDS: GABAPENTIN 400 MG CAP PO SCH ×3 (07:51→20:13)
[2019-11-06] MEDS: DULoxetine HCL 20 MG CAPSULE.DR PO SCH (07:51)
[2019-11-06] MEDS: METOPROLOL TARTRATE 12.5 MG TAB PO SCH ×2 (07:51→20:14)
[2019-11-06] MEDS: PANTOPRAZOLE 40 MG TABLET PO SCH (07:51)
--- NOTE | 2019-11-06 08:36 | P.PN ---
Subjective Progress Note Date: 11/05/19 This is a pleasant 84-year-old male past medical history significant for sick sinus syndrome status post permanent pacemaker implantation, congestive heart failure and COPD. He is a poor historian and information is obtained from the medical record. Ultrasound of the chest reveals a large left pleural effusion with greatest depth measured at 10.8 cm. Has been seen in evaluation by Dr. Smith RN per the patient requests no thoracentesis at this time. Currently maintained on Lasix 40 mg IV twice a day and Lopressor 12.5 mg twice a day. Blood pressure 130/67 heart rate 109 afebrile maintaining oxygen saturation on room air. Laboratory data reviewed, WBC 13.2, hemoglobin 14, platelets 419, sodium 140, potassium 3.3, creatinine 0.98. Echocardiogram pending. Patient was seen and examined resting comfortably in bed in no acute distress. He denies worsening shortness of breath. No chest pain, dizziness or palpitations. GENERAL: Well-appearing, well-nourished and in no acute distress. NECK: Supple without JVD or thyromegaly. LUNGS: Breath sounds clear to auscultation bilaterally. Respiration equal and unlabored. No wheezes, rales or rhonchi. Diminished bilaterally. HEART: Irregular rate and rhythm without murmurs, rubs or gallops. S1 and S2 heard. EXTREMITIES: Normal range of motion, no edema. No clubbing or cyanosis. Peripheral pulses intact. ASSESSMENT Acute exacerbation of systolic heart failure, unknown if acute or chronic. Left-sided pleural effusion Sick sinus syndrome status post permanent pacemaker implantation Hypokalemia Leukocytosis PLAN Echocardiogram to be obtained. Follow electrolytes and renal function in the morning. Further recommendations to follow based upon clinical course. Nurse Practitioner note has been reviewed, I agree with a documented findings and plan of care. Patient was seen and examined. Objective - Vital Signs Vital signs: Vital Signs Temp 97.8 F 11/06/19 07:00 Pulse 93 11/06/19 07:00 Resp 22 11/06/19 07:00 BP 114/72 11/06/19 07:00 Pulse Ox 95 11/06/19 07:00 Intake & Output 11/05/19 11/06/19 11/06/19 18:59 06:59 18:59 Intake Total 540 Output Total 350 Balance 540 -350 Weight 67.585 kg Intake: Oral 540 Output: Urine 350 Other: Voiding Method Urinal Diaper Incontinent # Voids 3 2 # Bowel Movements 1 - Labs CBC & Chem 7: 11/05/19 08:02 11/05/19 08:02 Labs: Abnormal Lab Results - Last 24 Hours (Table) 11/05/19 11/05/19 Range/Units 08:02 08:02 WBC 13.2 H (3.8-10.6) k/uL RDW 16.0 H (11.5-15.5) % Potassium 3.3 L (3.5-5.1) mmol/L Glucose 150 H (74-99) mg/dL Microbiology - Last 24 Hours (Table) 11/03/19 22:59 Blood Culture - Preliminary Blood No Growth after 48 hours 11/03/19 21:35 Urine Culture - Preliminary Urine,Clean Catch Gram Neg Bacilli
[2019-11-06 10:13] LABS: Calcium 9.4 mg/dL (8.4-10.2); Potassium 3.6 mmol/L (3.5-5.1)
--- NOTE | 2019-11-06 12:17 | XR ---
EXAMINATION TYPE: XR chest 1V DATE OF EXAM: 11/06/2019 COMPARISON: 11/03/2019 HISTORY: Shortness of breath TECHNIQUE: Single frontal view of the chest is obtained. FINDINGS: Cardiac device noted and there is evidence of a stimulator device. Surgical clips in the u pper abdomen. There is a moderate-sized left pleural effusion and tiny right pleural effusion. Basila r consolidation noted. Diffuse osteopenia with arthropathy of the shoulders. Heart is enlarged. Ather osclerotic change aorta. IMPRESSION: 1. Moderate left and small right pleural effusion with suspected compressive atelectasis and underlyi ng COPD. 2. Mild chronic interstitial venous congestion suspected.
--- NOTE | 2019-11-06 14:53 | P.PN ---
Subjective This is a pleasant 84-year-old male past medical history significant for sick sinus syndrome status post permanent pacemaker implantation, congestive heart failure and COPD. He is a poor historian and information is obtained from the medical record. Ultrasound of the chest reveals a large left pleural effusion with greatest depth measured at 10.8 cm. Has been seen in evaluation by Dr. Smith RN per the patient requests no thoracentesis at this time. Currently maintained on Lasix 40 mg IV twice a day and Lopressor 12.5 mg twice a day. Blood pressure 130/67 heart rate 109 afebrile maintaining oxygen saturation on room air. Laboratory data reviewed, WBC 13.2, hemoglobin 14, platelets 419, sodium 140, potassium 3.3, creatinine 0.98. Echocardiogram pending. Patient was seen and examined resting comfortably in bed in no acute distress. He denies worsening shortness of breath. No chest pain, dizziness or palpitations. 11/06/2019 Pt is seen and examined sitting up in the chair in no acute distress. He denies shortness of breath at rest or with exertion. He is maintaining oxygen saturation on room air. He has no chest pain, dizziness or palpitations. Blood pressure 114/72 heart rate 93 afebrile. Laboratory data reviewed, sodium 139, potassium 3.6, creatinine 1.11. Repeat chest x-ray today reveals moderate left and small right pleural effusion suspected compressive atelectasis and underlying COPD. There is also mild chronic interstitial venous congestion noted. Currently maintained on Lopressor 12.5 mg twice a day and Lasix 40 mg twice a day IV. Pt does not recall who is stick welder is, when he got his pacemaker or who monitors his pacemaker. GENERAL: Well-appearing, well-nourished and in no acute distress. NECK: Supple without JVD or thyromegaly. LUNGS: Breath sounds clear to auscultation bilaterally. Respiration equal and unlabored. No wheezes, rales or rhonchi. Diminished bilaterally. HEART: Irregular rate and rhythm without murmurs, rubs or gallops. S1 and S2 heard. EXTREMITIES: Normal range of motion, no edema. No clubbing or cyanosis. Peripheral pulses intact. ASSESSMENT Acute exacerbation of systolic heart failure, unknown if acute or chronic. Left-sided pleural effusion Sick sinus syndrome status post permanent pacemaker implantation Hypokalemia, improved. Leukocytosis PLAN Transition to oral diuretics in the morning. Check lipid panel. Nurse Practitioner note has been reviewed, I agree with a documented findings and plan of care. Patient was seen and examined. Objective - Vital Signs Vital signs: Vital Signs Temp 97.8 F 11/06/19 07:00 Pulse 93 11/06/19 07:00 Resp 22 11/06/19 07:00 BP 114/72 11/06/19 07:00 Pulse Ox 95 11/06/19 07:00 Intake & Output 11/05/19 11/06/19 11/06/19 18:59 06:59 18:59 Intake Total 540 800 Output Total 350 Balance 540 -350 800 Weight 67.585 kg Intake: Oral 540 800 Output: Urine 350 Other: Voiding Method Urinal Urinal Diaper Diaper Incontinent Incontinent # Voids 3 2 1 # Bowel Movements 1 1 - Labs CBC & Chem 7: 11/05/19 08:02 11/06/19 08:50 Labs: Abnormal Lab Results - Last 24 Hours (Table) 11/06/19 Range/Units 08:50 Chloride 97 L (98-107) mmol/L BUN 23 H (9-20) mg/dL Glucose 167 H (74-99) mg/dL Microbiology - Last 24 Hours (Table) 11/03/19 21:35 Urine Culture - Final Urine,Clean Catch Klebsiella oxytoca 11/03/19 22:59 Blood Culture - Preliminary Blood No Growth after 48 hours
--- NOTE | 2019-11-06 15:17 | PN ---
PROGRESS NOTE PULMONARY/CRITICAL CARE PROGRESS NOTE: DATE OF SERVICE: 11/06/2019 This is an 84-year-old male with a history of abnormal chest x-ray and evidence of CHF. He was also found to have bilateral pleural effusion, left greater than right. Initially, the service offered him thoracentesis, but he would prefer to see if the fluid could be treated with just medications, which include primarily diuretics. The patient is relatively stable. He denies any shortness of breath, chest pain, chest discomfort, fever, chills, cough, phlegm production. Actually he is doing very well. Not requiring any supplemental oxygen. He does have a history of acute exacerbation of suspected systolic CHF, the left-sided pleural effusion greater than the right pleural effusion, sick sinus syndrome, status post permanent pacemaker implantation, COPD, previous chronic tobacco dependence and dementia. Again, the patient is resting comfortably. A repeat chest x-ray showed only modest improvement in the left chest. PHYSICAL EXAMINATION: VITAL SIGNS: Current vital signs are reviewed. Temperature is 97.8, heart rate 93, respiratory rate 22, blood pressure 114/72, mean 86, room-air saturation 96%. GENERAL APPEARANCE: He appears in no acute distress. HEENT: Examination is grossly unremarkable. NECK: Supple. Full range of motion. No adenopathy or thyromegaly. Neck veins are flat. CARDIOVASCULAR: Examination reveals regular rhythm and rate. Heart sounds are distant. Heart rate mid 90s. S1, S2 normal. A soft systolic murmur is noted. LUNGS: Lungs reveal diminished breath sounds at the bases with bibasilar crackles. Adventitious sounds are more prominent on the left side. ABDOMEN: Soft. Bowel sounds are heard. EXTREMITIES: Intact. There is no cyanosis, clubbing or significant edema. SKIN: Without rash. NEUROLOGIC: Neurologic examination is brief but nonfocal. Repeat chest x-ray is evaluated. LABS: Reviewed. Sodium 139, potassium 3.6, chloride 97, CO2 is 30, anion gap is 12. BUN and creatinine were 23 and 1.11. Microbiology is positive for a urine culture positive for Klebsiella oxytoca. Chest x-ray is reviewed. Medications are reviewed. ASSESSMENT: 1. Acute exacerbation of suspected systolic congestive heart failure. 2. Moderate left-sided pleural effusion and small right-sided pleural effusion; patient currently refusing thoracentesis at this time. 3. History of sick sinus syndrome, status post permanent pacemaker insertion. 4. Chronic obstructive pulmonary disease secondary to previous chronic tobacco dependence. 5. Dementia. 6. Klebsiella oxytoca urinary tract infection. PLAN: The patient seems to be doing rather well. He is not short of breath. He is not requiring any supplemental oxygen. The patient would prefer not to have a thoracentesis at this time. The patient's chest x-ray is reviewed. He remains on Rocephin for his urinary tract infection. The rest of his medications are appropriate. Clinically he looks well. Will continue to follow. MMODL / IJN: [id number] /
--- NOTE | 2019-11-06 15:46 | P.PN ---
Subjective Progress Note Date: 11/06/19 Principal diagnosis: 84-year-old pleasant male with possible history of dementia, history of CHF COPD was brought in because patient was confused. Patient is almost alert oriented 2-3 , patient believes it's 2001. Patient was feeling dizzy as well was complaining of shortness of breath along with orthopnea unable to get the history of proximal nocturnal dyspnea was comparing of cough without sputum production patient denied any fever chills dysuria patient does have leukoc ytosis mildly abnormal urine but no symptoms of urinary tract infection. 11/05/2019 Patient is seen and evaluated in follow-up today and is lethargic but arousable. Patient is alert and oriented 3 responding to questions and commands appropriately. Patient continues to have some shortness of breath with exertion and is being evaluated by pulmonary. Patient underwent a chest ultrasound showing a large left pleural effusion. Patient is currently being diuresed with IV Lasix 40 mg twice daily and will continue at this time. Discussion of possible thoracentesis in the future if no improvement with diuresis. Initial urine culture showing preliminary gram-negative bacilli. Patient is asym ptomatic of any dysuria and will repeat urine culture. Currently no reports of chest pain or palpitations. Patient is afebrile. No reports of nausea or vomiting and patient is tolerating diet. Physical therapy to evaluate the patient. 11/06/2019 Patient is seen and evaluated in follow-up today and is much more awake and alert sitting up in the chair. Patient denies any shortness of breath, chest pain, or palpitations. Repeat chest x-ray today shows moderate left and small right pleural effusion with suspected compressive atelectasis and underlying COPD, and mild chronic interstitial venous congestion. Patient continues to refuse thoracentesis at this time. Patient continues on IV Lasix. Patient underwent an echo and is currently pending at this time. Cardiology and pulmonary following. Patient's urine culture finalized showing Klebsiella oxytoca and IV Rocephin was initiated. Patient denies any episodes of nausea or vomiting and is tolerating diet. Objective - Vital Signs Vital signs: Vital Signs Temp 97.8 F 11/06/19 07:00 Pulse 93 11/06/19 07:00 Resp 22 11/06/19 07:00 BP 114/72 11/06/19 07:00 Pulse Ox 95 11/06/19 07:00 Intake & Output 11/05/19 11/06/19 11/06/19 18:59 06:59 18:59 Intake Total 540 200 Output Total 350 Balance 540 -350 200 Weight 67.585 kg Intake: Oral 540 200 Output: Urine 350 Other: Voiding Method Urinal Urinal Diaper Diaper Incontinent Incontinent # Voids 3 2 # Bowel Movements 1 - Exam GENERAL: The patient is alert and oriented x3, not in any acute distress. Well developed, well nourished. HEENT: Pupils are round and equally reacting to light. EOMI. No scleral icterus. No conjunctival pallor. Normocephalic, atraumatic. No pharyngeal erythema. No thyromegaly. CARDIOVASCULAR: S1 and S2 present. No murmurs, rubs, or gallops. PULMONARY: Diminished breath sounds at the bases with some scattered crackles noted. No wheezing noted on exam ABDOMEN: Soft, nontender, nondistended, normoactive bowel sounds. No palpable organomegaly. MUSCULOSKELETAL: No joint swelling or deformity. EXTREMITIES: No cyanosis, clubbing, or pedal edema. NEUROLOGICAL: Gross neurological examination did not reveal any focal deficits. SKIN: No rashes. - Labs CBC & Chem 7: 11/05/19 08:02 11/06/19 08:50 Labs: Abnormal Lab Results - Last 24 Hours (Table) 11/06/19 Range/Units 08:50 Chloride 97 L (98-107) mmol/L BUN 23 H (9-20) mg/dL Glucose 167 H (74-99) mg/dL Microbiology - Last 24 Hours (Table) 11/03/19 21:35 Urine Culture - Final Urine,Clean Catch Klebsiella oxytoca 11/03/19 22:59 Blood Culture - Preliminary Blood No Growth after 48 hours Assessment and Plan Assessment: -altered mental status secondary to metabolic encephalopathy from heart failure exacerbation. Patient remains on IV Lasix 40 mg twice daily -Shortness of breath and acute hypoxic respiratory failure secondary to bilateral pleural effusion predominantly in the left side left side may need drainage. Patient probably has heart failure exacerbation. Will continue with IV diuresis at this time. Pulmonary following. Patient continues to refuse thoracentesis at this time. -congestive heart failure possibly of chronic systolic dysfunction with acute exacerbation echocardiogram will be obtained continue with Lasix -asymptomatic bacteriuria without any evidence of urinary tract infection, urine culture preliminary showing gram-negative bacilli, will repeat urine culture, patient denies any symptoms of dysuria or burning with urination, urine culture finalized showing Klebsiella oxytoca and initiated IV Rocephin. 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
[2019-11-06] MEDS: TAMSULOSIN 0.4 MG CAP.ER.24H PO SCH (20:14)
--- NOTE | 2019-11-06 20:51 | ECHOF ---
Referral Reason:CHF MEASUREMENTS -------- HEIGHT: 172.7 cm WEIGHT: 67.6 kg BP: 89/52 IVSd: 1.2 cm (0.6 - 1.1) LVIDd: 3.8 cm (3.9 - 5.3) LVPWd: 1.3 cm (0.6 - 1.1) IVSs: 1.9 cm LVIDs: 3.2 cm LVPWs: 1.7 cm LA Diam: 3.3 cm (2.7 - 3.8) RVIDd: 3.4 cm (< 3.3) Ao Diam: 3.8 cm (2.0 - 3.7) AV Cusp: 2.3 cm (1.5 - 2.6) EPSS: 0.5 cm MV E Silver: 0.69 m/s MV DecT: 163 ms MV A Silver: 0.43 m/s MV E/A Ratio: 1.61 RAP: 5.00 mmHg RVSP: 25.41 mmHg MV EF SLOPE: 130.83 mm/s (70 - 150) MV EXCURSION: 23.60 mm (> 18.000) FINDINGS -------- Paced rhythm. This was a technically adequate study. The left ventricular size is normal. There is mild concentric left ventricular hypertrophy. Left ventricular systolic function is hyperdynamic with an estimated EF of >70%. The right ventricle is normal in size. The left atrial size is normal. The right atrium is normal in size. Interatrial and interventricular septum intact. There is mild aortic valve sclerosis. There is mild aortic regurgitation. Mild mitral annular calcification present. Mild mitral regurgitation is present. Mild tricuspid regurgitation present. Right ventricular systolic pressure is normal at < 35 mmHg. Trace/mild (physiologic) pulmonic regurgitation. The aortic root is dilated measuring 3.8cm. Normal inferior vena cava with normal inspiratory collapse consistent with estimated right atrial pre ssure of 5 mmHg. There is no pericardial effusion. CONCLUSIONS -------- 1. Paced rhythm. 2. This was a technically adequate study. 3. The left ventricular size is normal. 4. There is mild concentric left ventricular hypertrophy. 5. Left ventricular systolic function is hyperdynamic with an estimated EF of >70%. 6. The right ventricle is normal in size. 7. The left atrial size is normal. 8. The right atrium is normal in size. 9. Interatrial and interventricular septum intact. 10. There is mild aortic valve sclerosis. 11. There is mild aortic regurgitation. 12. Mild mitral annular calcification present. 13. Mild mitral regurgitation is present. 14. Mild tricuspid regurgitation present. 15. Right ventricular systolic pressure is normal at < 35 mmHg. 16. Trace/mild (physiologic) pulmonic regurgitation. 17. The aortic root is dilated measuring 3.8cm. 18. Normal inferior vena cava with normal inspiratory collapse consistent with estimated right atrial pressure of 5 mmHg. 19. There is no pericardial effusion. CHARITY FUNDRAISER: Ailyn Ruiz RDCS
[2019-11-07] MEDS: GABAPENTIN 400 MG CAP PO SCH ×3 (08:35→21:37)
[2019-11-07] MEDS: FUROSEMIDE 40 MG TAB PO SCH ×2 (08:35→16:20)
[2019-11-07] MEDS: METOPROLOL TARTRATE 12.5 MG TAB PO SCH ×2 (08:35→21:36)
[2019-11-07] MEDS: DULoxetine HCL 20 MG CAPSULE.DR PO SCH (08:35)
[2019-11-07] MEDS: ENOXAPARIN 40 MG/0.4 ML SYRINGE SQ SCH (08:35)
[2019-11-07] MEDS: PANTOPRAZOLE 40 MG TABLET PO SCH ×2 (08:38→08:39)
[2019-11-07 08:46] LABS: Cholesterol 166 mg/dL (<200); HDL Cholesterol 42 mg/dL (40-60); LDL Cholesterol,Calculated 103 mg/dL (0-99); Triglycerides 103 mg/dL (<150)
[2019-11-07] MEDS: ATORVASTATIN 40 MG TAB PO SCH (09:12)
[2019-11-07 11:13] LABS: Basophils # (A) 0.1 k/uL (0-0.2); Basophils % (A) 1 %; Eosinophils # (A) 0.5 k/uL (0-0.7); Eosinophils % (A) 3 %; HGB 13.8 gm/dL (13.0-17.5); Hypochromasia Marked; Lymphocytes % (A) 35 %; MCH 26.9 pg (25.0-35.0); MCHC 31.4 g/dL (31.0-37.0); MCV 85.5 fL (80.0-100.0); Mean Platelet Volume 9.8; Monocytes # (A) 0.9 k/uL (0-1.0); Monocytes % (A) 6 %; Neutrophils # (A) 9.4 k/uL (1.3-7.7); Neutrophils % (A) 55 %; Platelet Count 389 k/uL (150-450); RBC 5.14 m/uL (4.30-5.90); RDW 15.7 % (11.5-15.5); WBC 17.2 k/uL (3.8-10.6)
[2019-11-07 11:18] LABS: Calcium 9.5 mg/dL (8.4-10.2)
[2019-11-07 11:23] LABS: Potassium 4.4 mmol/L (3.5-5.1)
[2019-11-07 12:21] LABS: Anisocytosis (M) Present; Poikilocytosis (M) Present
--- NOTE | 2019-11-07 13:11 | P.PN ---
Subjective This is a pleasant 84-year-old male past medical history significant for sick sinus syndrome status post permanent pacemaker implantation, congestive heart failure and COPD. He is a poor historian and information is obtained from the medical record. Pt is seen and examined laying flat resting comfortably in bed in no acute distress. He denies shortness of breath, dizziness, palpitations or chest pain. He is quite comfortable. Laboratory data reviewed, LDL 103, HDL 42 and triglycerides 103. Blood pressure 95/63 heart rate 92 afebrile and main taining oxygen saturation on room air. Echocardiogram revealed hyperdynamic LV with ejection fraction greater than 70%, mild aortic valve sclerosis, mild aortic regurgitation, mild mitral regurgitation and mild tricuspid regurgitation noted. GENERAL: Well-appearing, well-nourished and in no acute distress. NECK: Supple without JVD or thyromegaly. LUNGS: Breath sounds clear to auscultation bilaterally. Respiration equal and unlabored. No wheezes, rales or rhonchi. Diminished bilaterally. Increased air exchange on the left base. HEART: Irregular rate and rhythm without murmurs, rubs or gallops. S1 and S2 heard. EXTREMITIES: Normal range of motion, no edema. No clubbing or cyanosis. Periph eral pulses intact. ASSESSMENT Acute exacerbation of diastolic heart failure, unknown if acute or chronic. Left-sided pleural effusion Sick sinus syndrome status post permanent pacemaker implantation Hypokalemia, improved. Leukocytosis Dyslipidemia PLAN Pt is clinically doing much better. Continue current medical regimen. Nurse Practitioner note has been reviewed, I agree with a documented findings and plan of care. Patient was seen and examined. Objective - Vital Signs Vital signs: Vital Signs Temp 97.9 F 11/07/19 07:00 Pulse 92 11/07/19 07:00 Resp 16 11/07/19 07:00 BP 95/63 11/07/19 07:00 Pulse Ox 91 L 11/07/19 07:00 Intake & Output 11/06/19 11/07/19 11/07/19 18:59 06:59 18:59 Intake Total 800 100 Balance 800 100 Intake: Oral 800 100 Other: Voiding Method Urinal Urinal Diaper Diaper Incontinent Incontinent # Voids 1 2 # Bowel Movements 1 1 - Labs CBC & Chem 7: 11/07/19 06:51 11/07/19 06:51 Labs: Abnormal Lab Results - Last 24 Hours (Table) 11/06/19 11/07/19 Range/Units 08:50 07:51 Chloride 97 L (98-107) mmol/L BUN 23 H (9-20) mg/dL Glucose 167 H (74-99) mg/dL LDL Cholesterol, Calc 103 H (0-99) mg/dL Microbiology - Last 24 Hours (Table) 11/03/19 22:59 Blood Culture - Preliminary Blood No Growth after 72 hours 11/03/19 21:35 Urine Culture - Final Urine,Clean Catch Klebsiella oxytoca
--- NOTE | 2019-11-07 16:01 | PN ---
PROGRESS NOTE PULMONARY/CRITICAL CARE PROGRESS NOTE: DATE OF SERVICE: 11/07/2019 This is an 84-year-old male with a history of CHF and pleural effusion bilaterally, left greater than right. We initially offered the patient thoracentesis, but he chose to refuse it, hoping that he could be treated with medications. Currently, he is not receiving any supplemental oxygen. He is not complaining of any difficulty breathing. The patient otherwise is feeling generally well. He does have a history of suspected systolic CHF, bilateral pleural effusions, left greater than right, sick sinus syndrome, status post permanent pacemaker implantation, COPD, previous history of chronic nicotine dependence, and dementia. Current vital signs are stable. Temperature is 97.9, heart rate 92, respiratory rate 16, blood pressure 95/63 mean 73, room air saturation 91%. Appears in no acute distress. HEENT: Examination is grossly unremarkable. No supplemental oxygen. NECK: Supple, full range of motion. No adenopathy. Neck veins are flat. CARDIOVASCULAR: Examination reveals regular rhythm and rate. Heart rate 92. S1, S2 normal. LUNGS: Reveal mostly clear breath sounds. There may be a few scattered bibasilar crackles. ABDOMEN: Soft. EXTREMITIES: Intact. No cyanosis, clubbing, or edema. SKIN: Without rash. NEUROLOGIC: Examination is brief, but nonfocal. LAB: Date is reviewed. White count 17.2, hemoglobin 13.8, hematocrit 44.0, platelet count normal. Sodium 136, potassium 4.4, chloride 96, CO2 is 31, anion gap is 9. BUN and creatinine were 32 and 0.98. The rest of the labs look okay. Microbiology showing evidence of Klebsiella oxytoca in the urine. A chest x-ray was done yesterday. One is ordered for tomorrow. ASSESSMENT: 1. Acute exacerbation of suspected systolic heart failure, stable. 2. Moderate left-sided pleural effusion, a small right-sided pleural effusion; patient currently refusing thoracentesis at this time. 3. History of sick sinus syndrome, status post permanent pacemaker insertion. 4. Chronic obstructive pulmonary disease, secondary to previous chronic tobacco dependence, stable. 5. History of dementia. 6. Klebsiella oxytoca urinary tract infection. PLAN: The patient is seen doing reasonably well. He is stable. Not requiring any supplemental oxygen. The patient still refuses thoracentesis. Will repeat a chest x- ray in the morning. No additional recommendations are made. He is being treated for his urinary tract infection with Rocephin. MMODL / IJN: [id number] /
--- NOTE | 2019-11-07 16:12 | P.PN ---
Subjective Progress Note Date: 11/07/19 Principal diagnosis: 84-year-old pleasant male with possible history of dementia, history of CHF COPD was brought in because patient was confused. Patient is almost alert oriented 2-3 , patient believes it's 2001. Patient was feeling dizzy as well was complaining of shortness of breath along with orthopnea unable to get the history of proximal nocturnal dyspnea was comparing of cough without sputum production patient denied any fever chills dysuria patient does have leukoc ytosis mildly abnormal urine but no symptoms of urinary tract infection. 11/05/2019 Patient is seen and evaluated in follow-up today and is lethargic but arousable. Patient is alert and oriented 3 responding to questions and commands appropriately. Patient continues to have some shortness of breath with exertion and is being evaluated by pulmonary. Patient underwent a chest ultrasound showing a large left pleural effusion. Patient is currently being diuresed with IV Lasix 40 mg twice daily and will continue at this time. Discussion of possible thoracentesis in the future if no improvement with diuresis. Initial urine culture showing preliminary gram-negative bacilli. Patient is asym ptomatic of any dysuria and will repeat urine culture. Currently no reports of chest pain or palpitations. Patient is afebrile. No reports of nausea or vomiting and patient is tolerating diet. Physical therapy to evaluate the patient. 11/06/2019 Patient is seen and evaluated in follow-up today and is much more awake and alert sitting up in the chair. Patient denies any shortness of breath, chest pain, or palpitations. Repeat chest x-ray today shows moderate left and small right pleural effusion with suspected compressive atelectasis and underlying COPD, and mild chronic interstitial venous congestion. Patient continues to refuse thoracentesis at this time. Patient continues on IV Lasix. Patient underwent an echo and is currently pending at this time. Cardiology and pulmonary following. Patient's urine culture finalized showing Klebsiella oxytoca and IV Rocephin was initiated. Patient denies any episodes of nausea or vomiting and is tolerating diet. 11/07/2019 Patient is seen in follow-up today with no acute overnight issues. Cardiology and pulmonary following. Patient is currently on room air with no reports of shortness of breath, chest pain, or palpitations. Patient is on oral Lasix twice daily and will continue at this time. Patient continues to refuse thorac entesis at this time. Patient is afebrile. No reports of nausea or vomiting noted patient is tolerating diet. Will repeat chest x-ray in the morning. Objective - Vital Signs Vital signs: Vital Signs Temp 98.3 F 11/07/19 15:00 Pulse 96 11/07/19 15:00 Resp 20 11/07/19 15:00 BP 96/64 11/07/19 15:00 Pulse Ox 94 L 11/07/19 15:00 Intake & Output 11/06/19 11/07/19 11/07/19 18:59 06:59 18:59 Intake Total 510 259 1435 Balance 939 231 6501 Weight 67.585 kg Intake: Oral 580 196 2381 Other: Voiding Method Urinal Urinal Urinal Diaper Diaper Diaper Incontinent Incontinent Incontinent # Voids 1 2 2 # Bowel Movements 1 1 - Exam GENERAL: The patient is alert and oriented x3, not in any acute distress. Well developed, well nourished. HEENT: Pupils are round and equally reacting to light. EOMI. No scleral icterus. No conjunctival pallor. Normocephalic, atraumatic. No pharyngeal erythema. No thyromegaly. CARDIOVASCULAR: S1 and S2 present. No murmurs, rubs, or gallops. PULMONARY: Diminished breath sounds at the bases with some scattered rhonchi noted. No wheezing noted on exam ABDOMEN: Soft, nontender, nondistended, normoactive bowel sounds. No palpable organomegaly. MUSCULOSKELETAL: No joint swelling or deformity. EXTREMITIES: No cyanosis, clubbing, or pedal edema. NEUROLOGICAL: Gross neurological examination did not reveal any focal deficits. SKIN: No rashes. - Labs CBC & Chem 7: 11/07/19 06:51 11/07/19 06:51 Labs: Abnormal Lab Results - Last 24 Hours (Table) 11/07/19 11/07/19 11/07/19 Range/Units 06:51 06:51 07:51 WBC 17.2 H (3.8-10.6) k/uL RDW 15.7 H (11.5-15.5) % Neutrophils # 9.4 H (1.3-7.7) k/uL Lymphocytes # 6.0 H (1.0-4.8) k/uL Sodium 136 L (137-145) mmol/L Chloride 96 L (98-107) mmol/L Carbon Dioxide 31 H (22-30) mmol/L BUN 32 H (9-20) mg/dL Glucose 150 H (74-99) mg/dL LDL Cholesterol, Calc 103 H (0-99) mg/dL Microbiology - Last 24 Hours (Table) 11/03/19 22:59 Blood Culture - Preliminary Blood No Growth after 72 hours Assessment and Plan Assessment: -altered mental status secondary to metabolic encephalopathy from heart failure exacerbation. Patient transitioned oral Lasix 40 mg twice daily -Shortness of breath and acute hypoxic respiratory failure secondary to bilateral pleural effusion predominantly in the left side left side may need drainage. Patient probably has heart failure exacerbation. Will continue with IV diuresis at this time. Pulmonary following. Patient continues to refuse thoracentesis at this time. -congestive heart failure possibly of diastolic dysfunction with acute exacerbation, echo shows overall left ventricular systolic function is hyperdynamic with an estimated EF of about 70% with some trace/mild pulmonic regurgitation along with mild mitral and tricuspid regurgitation present -Acute urinary tract infection with Klebsiella oxytoca on urine cultures. Aging continued on IV Rocephin -COPD without any acute exacerbation -history of bradycardia , presently has a pacemaker which was placed inflammatory 2019 -depression -Gastroesophageal reflux disease -Peripheral neuropathy for which patient is on gabapentin which will be continued -Possible senile dementia - DVT prophylaxis with the Lovenox subcutaneous
[2019-11-07 19:19] VITALS: RESP 16
[2019-11-07] MEDS: TAMSULOSIN 0.4 MG CAP.ER.24H PO SCH (21:36)
[2019-11-08 04:34] VITALS: TEMP 97.5
[2019-11-08 07:13] LABS: Appearance,Urine Clear (Clear); Bilirubin,Urine Negative (Negative); Blood,Urine Negative (Negative); Color,Urine Yellow; Glucose,Urine (UA) Negative (Negative); Ketones,Urine Trace (Negative); Leukocyte Esterase,Urine Negative (Negative); Nitrite,Urine Negative (Negative); PH, Urine 5.5 (5.0-8.0); Protein,Urine Negative (Negative); Specific Gravity,Urine 1.017 (1.001-1.035); Urobilinogen,Urine <2.0 mg/dL (<2.0)
[2019-11-08] MEDS: FUROSEMIDE 40 MG TAB PO SCH (07:23)
[2019-11-08] MEDS: METOPROLOL TARTRATE 12.5 MG TAB PO SCH (07:23)
[2019-11-08] MEDS: ATORVASTATIN 40 MG TAB PO SCH (07:23)
[2019-11-08] MEDS: GABAPENTIN 400 MG CAP PO SCH (07:23)
[2019-11-08] MEDS: DULoxetine HCL 20 MG CAPSULE.DR PO SCH (07:23)
[2019-11-08] MEDS: ENOXAPARIN 40 MG/0.4 ML SYRINGE SQ SCH (07:24)
[2019-11-08] MEDS ORDERED: PANTOPRAZOLE 40 MG TABLET PO STA (08:29)
--- NOTE | 2019-11-08 08:42 | XR ---
EXAMINATION TYPE: XR chest 1V DATE OF EXAM: 11/08/2019 COMPARISON: 11/06/2019 HISTORY: 84-year-old male follow-up shortness of breath TECHNIQUE: Single frontal view of the chest is obtained. FINDINGS: Left anterior chest wall pacemaker generator with right ventricular lead. Additional stimulator leads ascend along the right paramedian thorax. Heart remains borderline enlarged. Continued moderate left pleural effusion and retrocardiac opacity. Mild interstitial prominence in mild hyperinflation is un changed. IMPRESSION: COPD and borderline heart size with continued moderate left effusion with adjacent atelectasis and/or consolidation.
[2019-11-08 08:55] VITALS: BP 96/59; PULSE 88
[2019-11-08 10:09] LABS: Anisocytosis Slight; Basophils # (A) 0.1 k/uL (0-0.2); Basophils % (A) 1 %; Eosinophils # (A) 0.6 k/uL (0-0.7); Eosinophils % (A) 3 %; HCT 41.9 % (39.0-53.0); HGB 13.5 gm/dL (13.0-17.5); Hypochromasia Moderate; Lymphocytes # (A) 5.5 k/uL (1.0-4.8); Lymphocytes % (A) 33 %; MCH 27.2 pg (25.0-35.0); MCHC 32.2 g/dL (31.0-37.0); MCV 84.7 fL (80.0-100.0); Monocytes # (A) 0.8 k/uL (0-1.0); Monocytes % (A) 5 %; Neutrophils # (A) 9.3 k/uL (1.3-7.7); Neutrophils % (A) 56 %; Platelet Count 350 k/uL (150-450); RBC 4.95 m/uL (4.30-5.90); RDW 16.3 % (11.5-15.5); WBC 16.6 k/uL (3.8-10.6)
[2019-11-08 10:18] LABS: African American GFR (CKD) >90 (>60 ml/min/1.73 sqM); Anion Gap 10 mmol/L; Blood Urea Nitrogen 30 mg/dL (9-20); Calcium 8.9 mg/dL (8.4-10.2); Carbon Dioxide 29 mmol/L (22-30); Chloride 96 mmol/L (98-107); Glucose 163 mg/dL (74-99); Non-African American GFR(CKD) 78 (>60 ml/min/1.73 sqM); Sodium 135 mmol/L (137-145)
--- NOTE | 2019-11-08 14:59 | P.PN ---
Subjective This is a pleasant 84-year-old male past medical history significant for sick sinus syndrome status post permanent pacemaker implantation, congestive heart failure and COPD. He is a poor historian and information is obtained from the medical record. He is seen and examined resting comfortably lying completely flat in bed in no acute distress. He denies symptoms of chest pain, shortness of breath, dizziness or palpitations. Chest x-ray this morning revealed COPD with continued left pleural effusion. Laboratory data reviewed, WBC 16.6, hem oglobin 13.5, platelets 350, sodium 135, potassium 4.0, creatinine 0.87 GENERAL: Well-appearing, well-nourished and in no acute distress. NECK: Supple without JVD or thyromegaly. LUNGS: Breath sounds clear to auscultation bilaterally. Respiration equal and unlabored. No wheezes, rales or rhonchi. Diminished bilaterally. Increased air exchange on the left base. HEART: Irregular rate and rhythm without murmurs, rubs or gallops. S1 and S2 heard. EXTREMITIES: Normal range of motion, no edema. No clubbing or cyanosis. Peripheral pulses intact. ASSESSMENT Acute exacerbation of diastolic heart failure, unknown if acute or chronic. Left-sided pleural effusion Sick sinus syndrome status post permanent pacemaker implantation Hypokalemia, improved. Leukocytosis Dyslipidemia PLAN Hemodynamically stable. Continue current medical regimen. Nurse Practitioner note has been reviewed, I agree with a documented findings and plan of care. Patient was seen and examined. Objective - Vital Signs Vital signs: Vital Signs Temp 97.5 F L 11/08/19 07:00 Pulse 88 11/08/19 07:00 Resp 16 11/08/19 07:15 BP 96/59 11/08/19 07:00 Pulse Ox 97 11/08/19 07:00 Intake & Output 11/07/19 11/08/19 11/08/19 18:59 06:59 18:59 Intake Total 1240 Balance 1240 Weight 67.585 kg Intake: Oral 1240 Other: Voiding Method Urinal Urinal Urinal Diaper Diaper Diaper Incontinent Incontinent Incontinent # Voids 2 1 1 - Labs CBC & Chem 7: 11/08/19 08:59 11/08/19 08:59 Labs: Abnormal Lab Results - Last 24 Hours (Table) 11/08/19 11/08/19 11/08/19 Range/Units 05:00 08:59 08:59 WBC 16.6 H (3.8-10.6) k/uL RDW 16.3 H (11.5-15.5) % Neutrophils # 9.3 H (1.3-7.7) k/uL Lymphocytes # 5.5 H (1.0-4.8) k/uL Sodium 135 L (137-145) mmol/L Chloride 96 L (98-107) mmol/L BUN 30 H (9-20) mg/dL Glucose 163 H (74-99) mg/dL Urine Ketones Trace H (Negative) Microbiology - Last 24 Hours (Table) 11/03/19 22:59 Blood Culture - Preliminary Blood No Growth after 96 hours
--- NOTE | 2019-11-08 15:04 | P.PN ---
Subjective Progress Note Date: 11/08/19 Principal diagnosis: Acute exacerbation of her chronic diastolic congestive heart failure, moderate left-sided pleural effusion The patient is seen today 11/08/2019 in follow-up on the regular medical floor. He is currently resting in bed. Laying flat. No shortness of breath, cough or congestion. Maintaining O2 saturations in the 90s on room air. Chest x-ray continues to show evidence of COPD with moderate left effusion and adjacent atelectasis. Stable. Urine culture positive for Klebsiella oxytoca. Blood cultures reveal no growth. White count 16.6. Hemoglobin 13.5. Sodium 135. Potassium 4.0. Creatinine 0.87. He remains on oral diuretics. Ceftriaxone. Objective - Vital Signs Vital signs: Vital Signs Temp 97.5 F L 11/08/19 07:00 Pulse 88 11/08/19 07:00 Resp 16 11/08/19 07:15 BP 96/59 11/08/19 07:00 Pulse Ox 97 11/08/19 07:00 Intake & Output 11/07/19 11/08/19 11/08/19 18:59 06:59 18:59 Intake Total 1240 Balance 1240 Weight 67.585 kg Intake: Oral 1240 Other: Voiding Method Urinal Urinal Urinal Diaper Diaper Diaper Incontinent Incontinent Incontinent # Voids 2 1 1 - Exam GENERAL EXAM: Alert, pleasant 84-year-old gentleman, on room air, comfortable in no apparent distress. HEAD: Normocephalic. EYES: Normal reaction of pupils, equal size. NOSE: Clear with pink turbinates. THROAT: No erythema or exudates. NECK: No masses, no JVD. CHEST: No chest wall deformity. LUNGS: Equal air entry with basilar crackles more so on the left, dull, diminished. CVS: S1 and S2 normal with no audible murmur, regular rhythm. ABDOMEN: No hepatosplenomegaly, normal bowel sounds, no guarding or rigidity. SPINE: No scoliosis or deformity SKIN: No rashes CENTRAL NERVOUS SYSTEM: No focal deficits, tone is normal in all 4 extremities. EXTREMITIES: There is no peripheral edema. No clubbing, no cyanosis. Peripheral pulses are intact. - Labs CBC & Chem 7: 11/08/19 08:59 11/08/19 08:59 Labs: Abnormal Lab Results - Last 24 Hours (Table) 11/08/19 11/08/19 11/08/19 Range/Units 05:00 08:59 08:59 WBC 16.6 H (3.8-10.6) k/uL RDW 16.3 H (11.5-15.5) % Neutrophils # 9.3 H (1.3-7.7) k/uL Lymphocytes # 5.5 H (1.0-4.8) k/uL Sodium 135 L (137-145) mmol/L Chloride 96 L (98-107) mmol/L BUN 30 H (9-20) mg/dL Glucose 163 H (74-99) mg/dL Urine Ketones Trace H (Negative) Microbiology - Last 24 Hours (Table) 11/03/19 22:59 Blood Culture - Preliminary Blood No Growth after 96 hours Assessment and Plan Assessment: 1 Acute exacerbation of diastolic congestive heart failure 2 Moderate left-sided pleural effusion measuring 10.8 cm on ultrasound, follow- up chest x-ray stable 3 History of sick sinus syndrome status post permanent pacemaker implantation 4 History of chronic obstructive pulmonary disease 5 History ofprevious chronic tobacco dependence 6 Dementia Plan: The patient was seen and evaluated by Dr. Villeda Chest x-ray and labs reviewed The patient is in no pulmonary distress On room air We'll continue with diuretics No plans for thoracentesis at this time Follow-up chest x-ray in 1-2 weeks or sooner should symptoms recur Cleared for discharge from the pulmonary standpoint I, the cosigning physician, performed a history & physical examination of the patient. Lungs sounds with crackles in the posterior bases left greater than right, dullness, diminished. Maintaining good O2 saturations in the 90s on room air. I discussed the assessment and plan of care with my nurse practitioner, Gricelda Dunbar. I attest to the above note as dictated by her.
--- NOTE | 2019-11-08 15:09 | P.DS ---
Providers Date of admission: 11/05/19 09:09 Expected date of discharge: 11/08/19 Attending physician: Mika Batista Consults: 11/03/19 23:29 Consult Physician Stat Consulting Provider: Han Ray Consult Reason/Comments: chf exacerbation Do you want consulting provider notified?: Yes 11/04/19 10:33 Consult Physician Stat Consulting Provider: Germania Guzmán Consult Reason/Comments: Left plueral effusion Do you want consulting provider notified?: Yes Primary care physician: [facility]rell [facility] Course: Final diagnosis -altered mental status secondary to metabolic encephalopathy from heart failure exacerbation -Shortness of breath and acute hypoxic respiratory failure secondary to bilateral pleural effusion predominantly in the left side Pulmonary following. Patient continues to refuse thoracentesis at this time. 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 Naranjo in the outpatient setting upon discharge. Patient will continue with home care in the outpatient setting. Patient will also continue on Lasix 40 mg twice daily until follow-up. Total time taken is 35 minutes. History of present illness This is a 84-year-old male who was recently admitted with altered mental status along with shortness of breath and orthopnea and was being closely monitored. Patient had a urine culture done showing Klebsiella oxytoca and was treated with IV antibiotics in the form of ceftriaxone and will not require any additional antibiotics in the outpatient setting. Patient does have a large pleural effusion noted although is refusing a thoracentesis at this time and would like to continue with an increase in Lasix as he feels this is helping. Patient was seen and evaluated by physical therapy and will not be requiring rehab in the outpatient setting. She will continue with home care in the outpatient setting and does have a walker at home and his daughter lives above him that helps care for him. Patient will follow-up with primary care provider in the outpatient setting. Currently no reports of chest pain, shortness of breath, or palpitations. Patient is afebrile. No reports of nausea or vomiting and patient is tolerating diet. Patient will be going home today. On exam vital signs are stable. Temp is 97.5F, pulse is 88, respirations are 16, blood pressure is 96/59, oxygen saturation is 97% on room air. Cardio S1, S2 are present. Respiratory system shows diminished breath sounds at the bases with no wheezing or rhonchi noted. Abdomen is soft and nontender. Nervous system shows no focal deficits. Please refer to medication reconciliation sheet for a list of medications. Patient Condition at Discharge: Stable Plan - Discharge Summary Discharge Rx Participant: Yes New Discharge Prescriptions: New Atorvastatin [Lipitor] 40 mg PO DAILY 30 Days #30 tab Metoprolol Tartrate [Lopressor] 12.5 mg PO BID 60 Days #60 tab Acetaminophen Tab [Tylenol] 650 mg PO Q6HR PRN tab PRN Reason: Fever and/ or Mild Pain Continue Omeprazole 20 mg PO AC-BRKFST DULoxetine HCL [Cymbalta] 20 mg PO DAILY Tamsulosin HCl [Flomax] 0.4 mg PO HS HYDROmorphone [Dilaudid] 1 mg PO QID PRN PRN Reason: Pain Gabapentin [Neurontin] 400 mg PO TID Changed Furosemide [Lasix] 40 mg PO BID 30 Days #60 tab Discontinued Ibuprofen [Motrin Ib] 600 mg PO BID PRN PRN Reason: Headache Metoprolol Tartrate [Lopressor] 25 mg PO BID Discharge Medication List DULoxetine HCL [Cymbalta] 20 mg PO DAILY 11/04/19 [History] Gabapentin [Neurontin] 400 mg PO TID 11/04/19 [History] HYDROmorphone [Dilaudid] 1 mg PO QID PRN 11/04/19 [History] Omeprazole 20 mg PO AC-BRKFST 11/04/19 [History] Tamsulosin HCl [Flomax] 0.4 mg PO HS 11/04/19 [History] Acetaminophen Tab [Tylenol] 650 mg PO Q6HR PRN tab 11/08/19 [Rx] Atorvastatin [Lipitor] 40 mg PO DAILY 30 Days #30 tab 11/08/19 [Rx] Furosemide [Lasix] 40 mg PO BID 30 Days #60 tab 11/08/19 [Rx] Metoprolol Tartrate [Lopressor] 12.5 mg PO BID 60 Days #60 tab 11/08/19 [Rx] Follow up Appointment(s)/Referral(s): Jerrell Lewis DO [Primary Care Provider] - 11/15/19 2:30 [facility]] - Ambulatory/Diagnostic Orders: Basic Metabolic Panel [LAB.AMB] Time Frame: 2 Days, Location: None Selected Complete Blood Count w/diff [LAB.AMB] Time Frame: 2 Days, Location: None Selected Patient Instructions/Handouts: Urinary Tract Infection in Men (ED) Activity/Diet/Wound Care/Special Instructions: Activity Limited until follow-up Continue current diet Continue taking 40 mg of Lasix twice daily until follow-up Follow-up with primary care provider upon discharge Repeat labs in 2-3 days Continue with home care Discharge Disposition: HOME WITH HOME HEALTH SERVICES
== END 2019-11-08 15:10 | disposition home health service (06) | DRG 291 ==
LOC: EC 20:17 → 4SSUR 23:29 → OBSVTOIN 11-05 09:09
PROVIDERS: ADMIT Internal Medicine; ATTEND Internal Medicine
DX: I50.33 Acute on chronic diastolic (congestive) heart failure (principal); G93.41 Metabolic encephalopathy; J96.01 Acute respiratory failure with hypoxia; N39.0 Urinary tract infection, site not specified; J98.11 Atelectasis; I49.5 Sick sinus syndrome; I95.9 Hypotension, unspecified; F03.90 Unspecified dementia, unspecified severity, without behavioral disturbance, psychotic disturbance, mood disturbance, and anxiety; J44.9 Chronic obstructive pulmonary disease, unspecified; Z20.828 Contact with and (suspected) exposure to other viral communicable diseases; E87.6 Hypokalemia; F32.9 Major depressive disorder, single episode, unspecified; K21.9 Gastro-esophageal reflux disease without esophagitis; G62.9 Polyneuropathy, unspecified; B96.1 Klebsiella pneumoniae [K. pneumoniae] as the cause of diseases classified elsewhere; E78.5 Hyperlipidemia, unspecified; I08.1 Rheumatic disorders of both mitral and tricuspid valves; R32 Unspecified urinary incontinence; Z95.0 Presence of cardiac pacemaker; Z87.891 Personal history of nicotine dependence; Z79.899 Other long term (current) drug therapy
CPT/HCPCS: 36415; 70450; 71045; 71046; 76604; 80048; 80053; 80061; 80306; 81001; 81003; 82140; 83880; 84484; 85025; 85610; 85730; 87040; 87077; 87086; 87186; 87635; 93005; 93306; 96361; 96365; 96375; 99285

== ENCOUNTER 2019-11-10 18:04 | Inpatient (IN) | payer MEDICARE, BC ==
--- NOTE | 2019-11-10 18:47 | ED ---
Fall HPI - General Source: patient, family Mode of arrival: wheelchair <Odalys Cesar - Last Filed: 11/10/19 21:49> <Yoon Best Adithya - Last Filed: 11/12/19 23:46> - General Chief Complaint: Fall Stated Complaint: Fall x2 Time Seen by Provider: 11/10/19 18:16 - History of Present Illness Initial Comments: 84 year male who was recently discharged from this facility for urinary tract infection presenting today for chief complaint of fall. Patient states that he lost his balance when he attempted to grab the counter while using the restroom. He states he fell forward because he does not believe his head his head that he fell onto his left hip he states he is having left hip pain. Patient denies any neck pain chest pain abdominal pain right lower extremity pain or pain of the upper extremity. Family member who is bedside states that she thinks he appears overall weak. Patient denies this complaint and states that he was feeling fine prior to the fall. Patient denies any chest pain shortness of breath. Patient doesn't appear to be inspiration. Patient denies numbness tingling loss of sensation coolness or pallor of the extremity. Patient was able to weight-bear and ambulate after the fall. Family denies any symmetrical anticoagulation therapy. Patient is alert and oriented 4 upon arrival. But does overall appears weak, slow movements. (Odalys Cesar) - Related Data Home Medications Medication Instructions Recorded Confirmed DULoxetine HCL [Cymbalta] 20 mg PO HS 11/04/19 11/10/19 Gabapentin [Neurontin] 400 mg PO TID 11/04/19 11/10/19 HYDROmorphone [Dilaudid] 2 mg PO QID 11/04/19 11/10/19 Omeprazole 20 mg PO AC-BRKFST 11/04/19 11/10/19 Tamsulosin HCl [Flomax] 0.4 mg PO AC-SUPPER 11/04/19 11/10/19 Ibuprofen [Motrin Ib] 400 mg PO Q4H 11/10/19 11/10/19 Metoprolol Tartrate [Lopressor] 25 mg PO BID 11/10/19 11/10/19 Previous Rx's Medication Instructions Recorded Atorvastatin [Lipitor] 40 mg PO DAILY 30 Days #30 tab 11/08/19 Furosemide [Lasix] 40 mg PO BID 30 Days #60 tab 11/08/19 Allergies Allergy/AdvReac Type Severity Reaction Status Date / Time No Known Allergies Allergy Verified 11/10/19 20:47 Review of Systems ROS Other: All systems not noted in ROS Statement are negative. <Odalys Cesar Jude - Last Filed: 11/10/19 21:49> ROS Other: All systems not noted in ROS Statement are negative. <Yoon Best - Last Filed: 11/12/19 23:46> ROS Statement: Those systems with pertinent positive or pertinent negative responses have been documented in the HPI. Past Medical History Past Medical History: Heart Failure, COPD, Hyperlipidemia, Hypertension Additional Past Medical History / Comment(s): feeding tube - History of Any Multi-Drug Resistant Organisms: None Reported Past Surgical History: Pacemaker Additional Past Surgical History / Comment(s): pace maker 07/2019 Past Psychological History: No Psychological Hx Reported Smoking Status: Former smoker Past Alcohol Use History: None Reported Past Drug Use History: None Reported <TaliVeronicaOdalys L - Last Filed: 11/10/19 21:49> General Exam Limitations: physical limitation <BalwindersvetlanaOdalys L - Last Filed: 11/10/19 21:49> Course Vital Signs 11/10/19 11/10/19 18:11 20:48 Temperature 98.0 F Pulse Rate 78 75 Respiratory 20 16 Rate Blood Pressure 124/80 111/79 O2 Sat by Pulse 97 98 Oximetry Medical Decision Making - Lab Data Result diagrams: 11/10/19 18:47 11/10/19 19:47 <BalwindersvetlanaOdalys L - Last Filed: 11/10/19 21:49> - Lab Data Result diagrams: 11/10/19 18:47 11/10/19 19:47 <Yoon Best - Last Filed: 11/12/19 23:46> - Medical Decision Making 84yo male presenting today for chief complaint of fall and generalized weakness. Patient states the fall was mechanical however has been feeling very weak. Patient has leukocytosis and no change in pneumonia or pleural effusions. Patient denies any chest pain or shortness of breath. Patient's EKG revealed possible atrial fibrillation I do not see a known history. Imaging for fall (-). Patient has no additional complaints. Patient will be admitted for generalized weakness, concern for failure to progress at home, cannot r/o persistence of infection vs CHF. Juni accepted the admission. (Odalys Cesar) I was available for consultation in the emergency department. The history and physical exam were done by the midlevel provider. I was consulted for this patients care. I reviewed the case with the midlevel provider and based on their presentation of the patient, I agree with the assessment, medical decision making and plan of care as documented. Chart was dictated using [employer] dictation software. Attempts were made to correct any dictation errors however some typographical errors may persist. Patient was seen during a national state of emergency due to the Covid-19 pandemic. (Yoon Best) - Lab Data Lab Results 11/10/19 11/10/19 11/10/19 Range/Units 18:47 18:47 18:47 WBC 16.8 H (3.8-10.6) k/uL RBC 5.66 (4.30-5.90) m/uL Hgb 15.0 (13.0-17.5) gm/dL Hct 48.2 (39.0-53.0) % MCV 85.2 (80.0-100.0) fL MCH 26.6 (25.0-35.0) pg MCHC 31.2 (31.0-37.0) g/dL RDW 16.5 H (11.5-15.5) % Plt Count 373 (150-450) k/uL Neutrophils % 67 % Lymphocytes % 23 % Monocytes % 5 % Eosinophils % 3 % Basophils % 1 % Neutrophils # 11.3 H (1.3-7.7) k/uL Lymphocytes # 3.9 (1.0-4.8) k/uL Monocytes # 0.8 (0-1.0) k/uL Eosinophils # 0.4 (0-0.7) k/uL Basophils # 0.2 (0-0.2) k/uL Manual Slide Review Performed Hypochromasia Moderate Anisocytosis Slight Sodium (137-145) mmol/L Potassium (3.5-5.1) mmol/L Chloride (98-107) mmol/L Carbon Dioxide (22-30) mmol/L Anion Gap mmol/L BUN (9-20) mg/dL Creatinine (0.66-1.25) mg/dL Est GFR (CKD-EPI)AfAm (>60 ml/min/1.73 sqM) Est GFR (CKD-EPI)NonAf (>60 ml/min/1.73 sqM) Glucose (74-99) mg/dL Calcium (8.4-10.2) mg/dL Total Bilirubin (0.2-1.3) mg/dL AST (17-59) U/L ALT (4-49) U/L Alkaline Phosphatase (38-126) U/L Troponin I <0.012 (0.000-0.034) ng/mL NT-Pro-B Natriuret Pep 2290 pg/mL Total Protein (6.3-8.2) g/dL Albumin (3.5-5.0) g/dL Urine Color Urine Appearance (Clear) Urine pH (5.0-8.0) Ur Specific [place] (1.001-1.035) Urine Protein (Negative) Urine Glucose (UA) (Negative) Urine Ketones (Negative) Urine Blood (Negative) Urine Nitrite (Negative) Urine Bilirubin (Negative) Urine Urobilinogen (<2.0) mg/dL Ur Leukocyte Esterase (Negative) 11/10/19 11/10/19 Range/Units 19:47 20:35 WBC (3.8-10.6) k/uL RBC (4.30-5.90) m/uL Hgb (13.0-17.5) gm/dL Hct (39.0-53.0) % MCV (80.0-100.0) fL MCH (25.0-35.0) pg MCHC (31.0-37.0) g/dL RDW (11.5-15.5) % Plt Count (150-450) k/uL Neutrophils % % Lymphocytes % % Monocytes % % Eosinophils % % Basophils % % Neutrophils # (1.3-7.7) k/uL Lymphocytes # (1.0-4.8) k/uL Monocytes # (0-1.0) k/uL Eosinophils # (0-0.7) k/uL Basophils # (0-0.2) k/uL Manual Slide Review Hypochromasia Anisocytosis Sodium 134 L (137-145) mmol/L Potassium 4.8 (3.5-5.1) mmol/L Chloride 97 L (98-107) mmol/L Carbon Dioxide 29 (22-30) mmol/L Anion Gap 8 mmol/L BUN 31 H (9-20) mg/dL Creatinine 0.98 (0.66-1.25) mg/dL Est GFR (CKD-EPI)AfAm 81 (>60 ml/min/1.73 sqM) Est GFR (CKD-EPI)NonAf 70 (>60 ml/min/1.73 sqM) Glucose 151 H (74-99) mg/dL Calcium 8.9 (8.4-10.2) mg/dL Total Bilirubin 0.8 (0.2-1.3) mg/dL AST 36 (17-59) U/L ALT 21 (4-49) U/L Alkaline Phosphatase 81 (38-126) U/L Troponin I (0.000-0.034) ng/mL NT-Pro-B Natriuret Pep pg/mL Total Protein 6.5 (6.3-8.2) g/dL Albumin 3.4 L (3.5-5.0) g/dL Urine Color Yellow Urine Appearance Clear (Clear) Urine pH 6.5 (5.0-8.0) Ur Specific [place] 1.010 (1.001-1.035) Urine Protein Negative (Negative) Urine Glucose (UA) Negative (Negative) Urine Ketones Negative (Negative) Urine Blood Negative (Negative) Urine Nitrite Negative (Negative) Urine Bilirubin Negative (Negative) Urine Urobilinogen <2.0 (<2.0) mg/dL Ur Leukocyte Esterase Negative (Negative) Disposition Is patient prescribed a controlled substance at d/c from ED?: No Time of Disposition: 20:03 Decision to Admit Reason: Admit from EC Decision Date: 11/10/19 Decision Time: 20:03 <Odalys Cesar - Last Filed: 11/10/19 21:49> <Yoon Best - Last Filed: 11/12/19 23:46> Clinical Impression: Generalized weakness, Left hip pain, Fall, Pleural effusion Disposition: ADMITTED IP TO THIS [facility] Condition: Stable
[2019-11-10 18:57] LABS: Anisocytosis Slight; Basophils # (A) 0.2 k/uL (0-0.2); Basophils % (A) 1 %; Eosinophils # (A) 0.4 k/uL (0-0.7); Eosinophils % (A) 3 %; HCT 48.2 % (39.0-53.0); Hypochromasia Moderate; Lymphocytes # (A) 3.9 k/uL (1.0-4.8); Lymphocytes % (A) 23 %; MCH 26.6 pg (25.0-35.0); MCHC 31.2 g/dL (31.0-37.0); MCV 85.2 fL (80.0-100.0); Mean Platelet Volume 10.6; Monocytes # (A) 0.8 k/uL (0-1.0); Monocytes % (A) 5 %; Neutrophils # (A) 11.3 k/uL (1.3-7.7); Neutrophils % (A) 67 %; RBC 5.66 m/uL (4.30-5.90); RDW 16.5 % (11.5-15.5); WBC 16.8 k/uL (3.8-10.6)
--- NOTE | 2019-11-10 19:16 | CT ---
EXAMINATION TYPE: CT brain keilaine wo con DATE OF EXAM: 11/10/2019 COMPARISON: CT brain 11/03/2019 HISTORY: multiple falls Headache. Neck pain. CT DLP: 1297 mGycm Automated exposure control for dose reduction was used. There is cerebral cortical atrophy. There is no mass effect nor midline shift. There is no sign of in tracranial hemorrhage. Calvarium is intact. The skull base is intact. Temporal bones are intact. There is multilevel posterior laminectomy defect in the cervical spine from C4 to C7. There is narrow ing of disc spaces from C4 to C7 with spurring. I see no cervical spine fracture. There is 2 mm anter ior subluxation of C5 in relation to C6. The facet joints are intact. IMPRESSION: Cerebral atrophy. No acute intracranial abnormality. No change compared to old exam. Cervical spine surgery. Spondylotic changes in the lower cervical spine. No fracture.
--- NOTE | 2019-11-10 19:36 | XR ---
EXAMINATION TYPE: XR chest 2V DATE OF EXAM: 11/10/2019 COMPARISON: 11/08/2019 HISTORY: Short of breath TECHNIQUE: FINDINGS: There is blunting left costophrenic angle. Right lung is clear. There is no heart failure. There is a left axillary pacemaker. IMPRESSION: Moderate left pleural effusion and left lower lobe pneumonia unchanged compared to recent exam. No heart failure seen.
--- NOTE | 2019-11-10 19:38 | XR ---
EXAMINATION TYPE: XR Hip LT and AP Pelvis DATE OF EXAM: 11/10/2019 COMPARISON: NONE HISTORY: Pain TECHNIQUE: 3 views FINDINGS: Pelvic ring is intact. There is left hip prosthesis. Components are in anatomic position. T here is no evidence of a fracture. Sacroiliac joints appear intact. IMPRESSION: No fracture seen.
[2019-11-10 20:02] LABS: Albumin 3.4 g/dL (3.5-5.0); Calcium 8.9 mg/dL (8.4-10.2); Potassium 4.8 mmol/L (3.5-5.1); Total Bilirubin 0.8 mg/dL (0.2-1.3); Total Protein 6.5 g/dL (6.3-8.2)
[2019-11-10 20:04] LABS: Platelet Count 373 k/uL (150-450)
[2019-11-10] MEDS ORDERED: NALOXONE 0.4 MG/ML 1 ML VIAL IV PRN (20:07)
[2019-11-10 20:52] LABS: Appearance,Urine Clear (Clear); Bilirubin,Urine Negative (Negative); Blood,Urine Negative (Negative); Color,Urine Yellow; Glucose,Urine (UA) Negative (Negative); Ketones,Urine Negative (Negative); Leukocyte Esterase,Urine Negative (Negative); Nitrite,Urine Negative (Negative); PH, Urine 6.5 (5.0-8.0); Protein,Urine Negative (Negative); Urobilinogen,Urine <2.0 mg/dL (<2.0)
[2019-11-10] MEDS ORDERED: SODIUM CHLORIDE 0.9% 1,000 ML IV ONE (22:25)
[2019-11-10] MEDS ORDERED: MORPHINE SULFATE 4 MG/ML SYRINGE IVP PRN (22:25)
[2019-11-10] MEDS: SODIUM CHLORIDE 0.9% 1,000 ML IV SCH (23:08)
[2019-11-11] MEDS: SODIUM CHLORIDE 0.9% 1,000 ML IV SCH (07:48)
[2019-11-11] MEDS ORDERED: HYDROmorphone 2 MG TAB PO PRN (10:25)
[2019-11-11] MEDS ORDERED: IBUPROFEN 200 MG TAB PO PRN (10:30)
[2019-11-11] MEDS: GABAPENTIN 400 MG CAP PO SCH ×3 (12:06→20:37)
[2019-11-11] MEDS: FUROSEMIDE 40 MG TAB PO SCH ×2 (12:07→17:33)
[2019-11-11] MEDS: PANTOPRAZOLE 40 MG TABLET PO SCH (12:07)
[2019-11-11] MEDS: ATORVASTATIN 40 MG TAB PO SCH (12:07)
[2019-11-11] MEDS: METOPROLOL TARTRATE 25 MG TAB PO SCH ×2 (12:13→20:37)
[2019-11-11] MEDS: traMADol 50 MG TAB PO PRN (13:42)
[2019-11-11] MEDS: ENOXAPARIN 40 MG/0.4 ML SYRINGE SQ SCH (14:12)
--- NOTE | 2019-11-11 15:39 | CT ---
EXAMINATION TYPE: CT hip LT wo con DATE OF EXAM: 11/11/2019 COMPARISON: Radiographs 11/10/2019 HISTORY: 84-year-old male Fall, pain, recent left hip sx TECHNIQUE: Contiguous axial scanning of the left hip without IV contrast. Coronal and sagittal recons tructions performed. CT DLP: 644.2 mGycm Automated exposure control for dose reduction was used. FINDINGS: Left hip hemiarthroplasty is demonstrated. Of note, there is complete loss of superior acetabular art icular cartilage with [id number] metal articulation and subchondral cystic change along the acetabu lar roof. Enthesopathy at the greater trochanter. Femoral stem component appears well-seated. No acute fracture is identified. Partially visualized diverticulosis of the left side of the colon. Mild generalized muscular atrophy. Generalized osteopenia. Seems to be a fluid collection extending along the right inguinal canal measuring up to 3.1 cm thick . IMPRESSION: 1. LEFT HIP HEMIARTHROPLASTY BUT WITH SEVERE DEGENERATIVE CHANGE ALONG THE PRAIRIE BAND ACETABULAR ARTICULA R CARTILAGE. THERE APPEARS TO BE BONE ON METAL ARTICULATION ALONG THE WEIGHTBEARING ASPECT OF THE SKYLA NT. 2. OTHERWISE, UNCOMPLICATED LEFT HIP REPLACEMENT. 3. LEFT-SIDED COLONIC DIVERTICULOSIS, OSTEOPENIA, AND MILD GENERALIZED MUSCLE ATROPHY. 4. THERE SEEMS TO BE A FLUID COLLECTION EXTENDING ALONG THE RIGHT INGUINAL CANAL MEASURING UP TO 3.1 CM THICK, ONLY PARTIALLY VISUALIZED. CORRELATE FOR ANY FOCAL SYMPTOMATOLOGY HERE TO DETERMINE THE NEE D FOR TARGETED ULTRASOUND. BOWEL CONTAINING RIGHT INGUINAL HERNIA AND ENCYSTED HYDROCELE ARE A COUPLE POSSIBILITIES.
--- NOTE | 2019-11-11 16:51 | P.HPIM ---
History of Present Illness H&P Date: 11/11/19 Chief Complaint: fall History of presenting complaint: This is a 84-year-old patient of Dr. Jerrell Naranjo. Patient was discharged 2 days ago by my colleague was covering me when I was away and was then admitted with CHF with EF around 30%,(COPD, depression, GERD, peripheral neuropathy, has some underlying dementia. Patient was then found her short of breath from acute hypoxic respiratory failure secondary to bilateral pleural effusion predominantly in the left side. Patient refused thoracentesis. Patient was at home. I was in the bathroom his hand slipped from the sink and patient been down bumping his left hip. Patient is having pain and there. In the ER x-ray was negative for any fracture. Patient's appetite has been good. Patient had a feeding tube for some time. Not been using it. Has some baseline shortness of breath. No fever no chills. Appetite is fairly good. Does use a walker. Lives with his daughter. Review of systems: GEN.: Tired EYES: None HEENT: Decreased hearing] NECK: None RESPIRATORY: Baseline shortness of breath CARDIOVASCULAR: None GASTROINTESTINAL: None GENITOURINARY: None MUSCULOSKELETAL: [Pain in different joints and left hip LYMPHATICS: None HEMATOLOGICAL: None PSYCHIATRY: Slightly forgetful NEUROLOGICAL: Does use a walker Past medical history to include: Cognitive impairment, peripheral neuropathy, GERD, depression, permanent pacemaker, COPD, and a stiff heart failure from EF of 70%, chronic pleural effusion, feeding tube Social history: No history of smoking or alcohol. Lives with his daughter. Does use a walker. Physical examination: VITAL SIGNS: 98, 78, 20, 124/80, 97% on room air GENERAL: BMI 21.1, laying in bed, awake, comfortable. EYES: Pupils equal. Conjunctiva normal. HEENT: External appearance of nose and ears normal, oral cavity grossly normal. NECK: JVD not raised; masses not palpable. HEART: First and second heart sounds are normal; no edema. LUNGS:[ Respiratory rate increased, diminished breath sounds. ABDOMEN: Soft, nontender, liver spleen not palpable, no masses palpable. PSYCH: Able to answer simple questionsl. MUSCULAR schedule: Evidence of OA NEUROLOGICAL: Cranial nerves grossly intact; no facial asymmetry, power and sensation grossly intact. LYMPHATICS: No lymph nodes palpable in the axilla and neck INVESTIGATIONS, reviewed in the clinical context: White count 16.8 hemoglobin 15 platelets 373 potassium 4.8 crit 0.98 Troponin I less than 0.012 proBNP 2290 UA negative EKG tracing personally reviewed by me-shows right bundle-branch block possibly paced rhythm Left hip [id number] a prosthesis-no fracture Chest x-ray film personally reviewed by [id number] pleural effusion, chronic Computed tomography scan of the brain and C-spine without contrast-evidence of DJD no fracture evidence of cervical spine surgery Assessment: -This is a patient presented with a fall after his hand slipped on the washbasin and patient took a tumble landing on his left hip. Has had some blunt injury to his left hip. No clinical evidence of fracture. There was no underlying dizziness lightheadedness or palpitation precipitating the fall. Appeared to be more of a mechanical fall. -Mild cognitive impairment likely from late onset Alzheimer's dementia -Chronic congestive heart failure from diastolic dysfunction EF 70% -COPD -Depression otherwise specified -GERD -Peripheral neuropathy -Chronic kidney dysfunction uses a walker -Chronic left-sided pleural effusion patient has declined thoracentesis -BPH with bladder outflow obstruction for which patient takes Flomax -PEG tube continued not be used Plan: Patient is relatively week. PTOT consultations. Home medications resumed. We will consult orthopedics to look into the same. Discharge planners. Family is requesting PEG tube to be removed while he is here in the hospital.-Not being used. Past Medical History Past Medical History: Heart Failure, COPD, Hyperlipidemia, Hypertension Additional Past Medical History / Comment(s): feeding tube - History of Any Multi-Drug Resistant Organisms: None Reported Past Surgical History: Pacemaker Additional Past Surgical History / Comment(s): pace maker 07/2019 Past Anesthesia/Blood Transfusion Reactions: No Reported Reaction Type of Cardiac Device: Permanent Pacemaker Device Placement Date:: 07/2019 Past Psychological History: No Psychological Hx Reported Smoking Status: Never smoker Past Alcohol Use History: None Reported Past Drug Use History: None Reported - Past Family History Mother Family Medical History: No Reported History Father Family Medical History: No Reported History Medications and Allergies Home Medications Medication Instructions Recorded Confirmed Type DULoxetine HCL [Cymbalta] 20 mg PO HS 11/04/19 11/10/19 History Gabapentin [Neurontin] 400 mg PO TID 11/04/19 11/10/19 History HYDROmorphone [Dilaudid] 2 mg PO QID 11/04/19 11/10/19 History Omeprazole 20 mg PO AC-BRKFST 11/04/19 11/10/19 History Tamsulosin HCl [Flomax] 0.4 mg PO AC-SUPPER 11/04/19 11/10/19 History Atorvastatin [Lipitor] 40 mg PO DAILY 30 Days #30 tab 11/08/19 11/10/19 Rx Furosemide [Lasix] 40 mg PO BID 30 Days #60 tab 11/08/19 11/10/19 Rx Ibuprofen [Motrin Ib] 400 mg PO Q4H 11/10/19 11/10/19 History Metoprolol Tartrate [Lopressor] 25 mg PO BID 11/10/19 11/10/19 History Allergies Allergy/AdvReac Type Severity Reaction Status Date / Time No Known Allergies Allergy Verified 11/10/19 20:47 Physical Exam Vitals: Vital Signs Temp Pulse Pulse Resp BP BP Pulse Ox 11/11/19 08:00 18 11/11/19 07:00 99.5 F 83 18 97/59 91 L 11/11/19 02:15 98.5 F 71 20 92/53 93 L 11/10/19 22:51 99.4 F 85 20 115/73 96 11/10/19 22:20 98.7 F 76 18 116/83 98 11/10/19 20:48 75 16 111/79 98 11/10/19 18:11 98.0 F 78 20 124/80 97 Intake and Output 11/10/19 11/11/19 11/11/19 22:59 06:59 14:59 Intake Total 100 Balance 100 Intake: Oral 100 Other: Voiding Method Urinal Diaper # Voids 2 Weight 63.049 kg Results CBC & Chem 7: 11/10/19 18:47 11/10/19 19:47 Labs: Abnormal Lab Results - Last 24 Hours (Table) 11/10/19 11/10/19 Range/Units 18:47 19:47 WBC 16.8 H (3.8-10.6) k/uL RDW 16.5 H (11.5-15.5) % Neutrophils # 11.3 H (1.3-7.7) k/uL Sodium 134 L (137-145) mmol/L Chloride 97 L (98-107) mmol/L BUN 31 H (9-20) mg/dL Glucose 151 H (74-99) mg/dL Albumin 3.4 L (3.5-5.0) g/dL Thrombosis Risk Factor Assmnt - Choose All That Apply Each Risk Factor Represents 3 Points: Age 75 years or older Thrombosis Risk Factor Assessment Total Risk Factor Score: 3 Thrombosis Risk Factor Assessment Level: Moderate Risk
[2019-11-11] MEDS: TAMSULOSIN 0.4 MG CAP.ER.24H PO SCH (17:33)
[2019-11-11] MEDS: DULoxetine HCL 20 MG CAPSULE.DR PO SCH (20:37)
--- NOTE | 2019-11-12 05:38 | P.CONS ---
History of Present Illness - Reason for Consult Consult date: 11/11/19 PEG tube removal Requesting physician: Trey Alfredo - Chief Complaint Mechanical fall - History of Present Illness 84-year-old male with a medical history significant for systolic CHF, COPD, depression, peripheral neuropathy and underlying dementia who presented to the [facility] for evaluation after mechanical fall. Patient was recently treated for an acute exacerbation of CHF as well as bilateral pleural effusions who presented back to the hospital after a mechanical fall. Of note history is been taking in conversation with the patient as well as review of medical record. Patient previously had a PEG tube placed due to acute oropharyngeal dysphagia in the setting of pneumonia. Per reports this was performed approximately 8 weeks ago at an outside hospital. Since that time the patient has resumed eating, taking his nutrition orally over the past 4 weeks. He denies any problems swallowing at this time. No nausea or vomiting. He reports good appetite. Review of Systems REVIEW OF SYSTEMS: CONSTITUTIONAL: Denies any fevers, chills, weight change or fatigue. CARDIOVASCULAR: Denies any chest pain, palpitations high or low blood pressures RESPIRATORY: Denies any shortness of breath, hemoptysis or cough. GENITOURINARY: No dysuria or hematuria. MUSCULOSKELETAL: No weakness reported. SKIN: Denies any new rashes or lesions, jaundice or pallor. PSYCHIATRIC: Denies any depression or anxiety. NEUROLOGY: Denies headache, denies any new focal deficits, does have underlying dementia. EARS/NOSE/THROAT: No recent hearing change, congestion, nasal discharge or sore throat. EYES: No pain in eyes, discharge or change in vision. GASTROINTESTINAL: As per HPI. Past Medical History Past Medical History: Heart Failure, COPD, Hyperlipidemia, Hypertension Additional Past Medical History / Comment(s): feeding tube - History of Any Multi-Drug Resistant Organisms: None Reported Past Surgical History: Pacemaker Additional Past Surgical History / Comment(s): pace maker 07/2019 Past Anesthesia/Blood Transfusion Reactions: No Reported Reaction Type of Cardiac Device: Permanent Pacemaker Device Placement Date:: 07/2019 Past Psychological History: No Psychological Hx Reported Smoking Status: Never smoker Past Alcohol Use History: None Reported Past Drug Use History: None Reported - Past Family History Mother Family Medical History: No Reported History Father Family Medical History: No Reported History Medications and Allergies Home Medications Medication Instructions Recorded Confirmed Type DULoxetine HCL [Cymbalta] 20 mg PO HS 05/25/20 05/31/20 History Gabapentin [Neurontin] 400 mg PO TID 11/04/19 11/10/19 History HYDROmorphone [Dilaudid] 2 mg PO QID 11/04/19 11/10/19 History Omeprazole 20 mg PO AC-BRKFST 11/04/19 11/10/19 History Tamsulosin HCl [Flomax] 0.4 mg PO AC-SUPPER 11/04/19 11/10/19 History Atorvastatin [Lipitor] 40 mg PO DAILY 30 Days #30 tab 11/08/19 11/10/19 Rx Furosemide [Lasix] 40 mg PO BID 30 Days #60 tab 11/08/19 11/10/19 Rx Ibuprofen [Motrin Ib] 400 mg PO Q4H 11/10/19 11/10/19 History Metoprolol Tartrate [Lopressor] 25 mg PO BID 11/10/19 11/10/19 History Allergies Allergy/AdvReac Type Severity Reaction Status Date / Time No Known Allergies Allergy Verified 11/10/19 20:47 Physical Exam Vitals: Vital Signs Temp Pulse Pulse Resp BP BP Pulse Ox 11/11/19 14:58 98.9 F 87 17 98/65 92 L 11/11/19 08:00 18 11/11/19 07:00 99.5 F 83 18 97/59 91 L 11/11/19 02:15 98.5 F 71 20 92/53 93 L 11/10/19 22:51 99.4 F 85 20 115/73 96 11/10/19 22:20 98.7 F 76 18 116/83 98 11/10/19 20:48 75 16 111/79 98 11/10/19 18:11 98.0 F 78 20 124/80 97 Intake and Output 11/11/19 11/11/19 11/11/19 06:59 14:59 22:59 Intake Total 100 200 Balance 100 200 Intake: Oral 100 200 Other: Voiding Method Urinal Diaper # Voids 2 1 On physical examination, patient appears comfortable in no apparent distress. HEAD: Normocephalic, atraumatic. EYES: No scleral icterus. No conjunctival injection. MOUTH: No lesions, tongue midline. NECK: Trachea midline, no gross abnormalities. CHEST: Decreased air entry in bilateral lung harp. HEART: S1-S2 appreciated. ABDOMEN: Soft, obese, with PEG tube site intact. Bowel sounds are positive. No organomegaly. No guarding or rigidity. EXTREMITIES: No pedal edema. SKIN: No rashes, no jaundice. NEUROLOGIC: Alert and oriented to person and place. No focal deficits. Results CBC & Chem 7: 11/10/19 18:47 11/10/19 19:47 Labs: Abnormal Lab Results - Last 24 Hours (Table) 11/10/19 11/10/19 Range/Units 18:47 19:47 WBC 16.8 H (3.8-10.6) k/uL RDW 16.5 H (11.5-15.5) % Neutrophils # 11.3 H (1.3-7.7) k/uL Sodium 134 L (137-145) mmol/L Chloride 97 L (98-107) mmol/L BUN 31 H (9-20) mg/dL Glucose 151 H (74-99) mg/dL Albumin 3.4 L (3.5-5.0) g/dL Chest x-ray: report reviewed (moderate-sized left pleural effusion and left lower pneumonia on chest x-ray unchanged from prior study) Assessment and Plan (1) Status post insertion of percutaneous endoscopic gastrostomy (PEG) tube Narrative/Plan: 84-year-old male who presented after a mechanical fall. Previously the patient had PEG tube placement reported as secondary to oropharyngeal dysphagia in the setting of pneumonia approximately 8 weeks ago. Since that time the patient has been taking all of his nutrition through an oral route over the past 4 weeks and like the PEG tube replaced. Chest x-ray does show a left lower lobe pneumonia and will need speech evaluation and swallow study to rule out continued aspiration prior to PEG tube removal. Current Visit: Yes Status: Acute Code(s): Z93.1 - GASTROSTOMY STATUS SNOMED Code(s): 006925553 (2) Fall Current Visit: Yes Status: Acute Code(s): W19.XXXA - UNSPECIFIED FALL, INITIAL ENCOUNTER SNOMED Code(s): 1346921 (3) Left hip pain Current Visit: Yes Status: Acute Code(s): M25.552 - PAIN IN LEFT HIP SNOMED Code(s): 18563604 Plan: Supportive care Nothing by mouth after midnight Speech language pathology consult dated video swallow ordered to rule out aspiration in the setting of left lower lobe pneumonia If x-ray findings are old and patient is no longer showing evidence of aspiration we can plan for PEG tube removal at bedside tomorrow Hold Lovenox tomorrow prior to procedure pending above Thank you for allowing us to participate in the care of the patient we will continue to follow
[2019-11-12] MEDS: ATORVASTATIN 40 MG TAB PO SCH (07:05)
[2019-11-12] MEDS: GABAPENTIN 400 MG CAP PO SCH ×3 (07:05→20:16)
[2019-11-12] MEDS: FUROSEMIDE 40 MG TAB PO SCH ×2 (07:05→16:06)
[2019-11-12] MEDS: ENOXAPARIN 40 MG/0.4 ML SYRINGE SQ SCH (07:06)
[2019-11-12] MEDS: PANTOPRAZOLE 40 MG TABLET PO SCH (07:06)
[2019-11-12] MEDS: METOPROLOL TARTRATE 25 MG TAB PO SCH ×2 (07:06→20:16)
[2019-11-12] MEDS: traMADol 50 MG TAB PO PRN (11:15)
--- NOTE | 2019-11-12 11:33 | FL ---
EXAMINATION TYPE: FL barium swallow w video DATE OF EXAM: 11/12/2019 MODIFIED SWALLOW / DEGLUTITION STUDY CLINICAL HISTORY: Dysphagia. TECHNIQUE: Deglutition study is performed utilizing thin liquid barium, nectar thick liquid barium, barium puree, and barium solid consistencies. 1 minute and 39 seconds of fluoroscopy time was utilize d with 0 fluoroscopic images saved as the examination was video recorded. COMPARISON: None. FINDINGS: The oral and pharyngeal phases show satisfactory initiation and propagation with all modali ties tested. Normal mastication is seen with solid modalities tested. Trace aspiration was seen with the thin consistency only. After chin to maneuver was utilized no laryngeal penetration or aspiratio n was seen. With the remainder of the administered consistencies there is no evidence of penetration or aspiration. No significant pharyngeal residue was appreciated. IMPRESSION: Trace silent aspiration with thin consistency only resolved with chin tuck maneuver. Ple ase refer to speech therapist notes for further details if necessary.
--- NOTE | 2019-11-12 14:21 | P.CRDCN ---
History of Present Illness History of present illness: HISTORY OF PRESENTING ILLNESS This is a pleasant 84-year-old male past medical history significant for permanent pacemaker implantation, COPD, hypertension and dyslipidemia. 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 He is a poor historian. He was just discharged from the hospital last week. He states he was at home using his walker to use the restroom. He stepped away from his walker and leaned on the sink to brace himself however his hand missed the sink and he slipped and fell. He landed on his hip. Imaging of the hip reveals degenerative disease however no acute fracture or dislocation noted. Incidentally on admission an EKG obtained revealed atrial fibrillation with controlled ventricular rate. He denies prior history of atrial fibrillation however as stated earlier he is a poor historian. He states he used to be on Coumadin and it was stopped recently by his doctor for unknown reason. Chest x-ray on admission reveals moderate left pleural effusion and left lower lobe pneumonia unchanged from previous study with no overt heart failure noted. Laboratory data reviewed, WBC 16.8, hemoglobin 15, platelets 373, sodium 134, potassium 4.8, creatinine 0.98, troponin negative 1, NTproNP 2290. Current cardiac medications include Lasix 40 mg twice a day, Lopressor 25 mg twice a day and atorvastatin 40 mg daily. Most recent echocardiogram obtained on previous admission and reveals hyperdynamic LV with ejection fraction greater than 70%, mild aortic regurgitation, mild mitral regurgitation and mild tricuspid regurgitation. He is seen and examined sitting up in bed in no acute distress HEENT denies symptoms of chest pain, shortness of breath, dizziness or palpitations. He states he did not pass out or feel dizzy or lightheaded he simply slipped and fell. REVIEW OF SYSTEMS At the time of my exam: CONSTITUTIONAL: Denies fever or chills. CARDIOVASCULAR: Denies chest pain, shortness of breath, orthopnea, PND or palpitations. RESPIRATORY: Denies cough. GASTROINTESTINAL: Denies abdominal pain, diarrhea, constipation, nausea or vomiting. MUSCULOSKELETAL: Denies myalgias. NEUROLOGIC: Denies numbness, tingling or weakness. ENDOCRINE: Denies fatigue, weight change, polydipsia or polyurina. GENITOURINARY: Denies burning, hematuria or urgency with micturation. HEMATOLOGIC: Denies history of anemia or bleeding. PHYSICAL EXAMINATION Blood pressure 97/67 heart rate 91 afebrile and maintaining oxygen saturation on nasal cannula. CONSTITUTIONAL: No apparent distress. HEENT: Head is normocephalic. Pupils are equal, round. Sclerae anicteric. Mucous membranes of the mouth are moist. No JVD. No carotid bruit. CHEST EXAMINATION: Lungs are clear to auscultation. No chest wall tenderness is noted on palpation or with deep breathing. HEART EXAMINATION: Irregular rate and rhythm. S1, S2 heard. No murmurs, gallops or rub. ABDOMEN: Soft, nontender. Positive bowel sounds. EXTREMITIES: 2+ peripheral pulses, no lower extremity edema and no calf tenderness. NEUROLOGIC EXAMINATION: Patient is awake, alert and oriented x3. ASSESSMENT Fall Paroxysmal atrial fibrillation with controlled ventricular rates Leukocytosis Hypertension Dyslipidemia Left pleural effusion PLAN Daughter did find out that he has a [employer] device, we will request an interrogation. Given his feeble state, weakness and falls we will not recommend detention anti- coagulation at this time. Likely this is why his physician discontinued coumadin previously. Thank you kindly for this consultation. Nurse Practitioner note has been reviewed, I agree with a documented findings and plan of care. Patient was seen and examined. Past Medical History Past Medical History: Heart Failure, COPD, Hyperlipidemia, Hypertension Additional Past Medical History / Comment(s): feeding tube - History of Any Multi-Drug Resistant Organisms: None Reported Past Surgical History: Pacemaker Additional Past Surgical History / Comment(s): pace maker 07/2019 Past Anesthesia/Blood Transfusion Reactions: No Reported Reaction Type of Cardiac Device: Permanent Pacemaker Device Placement Date:: 07/2019 Past Psychological History: No Psychological Hx Reported Smoking Status: Never smoker Past Alcohol Use History: None Reported Past Drug Use History: None Reported - Past Family History Mother Family Medical History: No Reported History Father Family Medical History: No Reported History Medications and Allergies Home Medications Medication Instructions Recorded Confirmed Type DULoxetine HCL [Cymbalta] 20 mg PO HS 11/04/19 11/10/19 History Gabapentin [Neurontin] 400 mg PO TID 11/04/19 11/10/19 History HYDROmorphone [Dilaudid] 2 mg PO QID 11/04/19 11/10/19 History Omeprazole 20 mg PO AC-BRKFST 11/04/19 11/10/19 History Tamsulosin HCl [Flomax] 0.4 mg PO AC-SUPPER 11/04/19 11/10/19 History Atorvastatin [Lipitor] 40 mg PO DAILY 30 Days #30 tab 11/08/19 11/10/19 Rx Furosemide [Lasix] 40 mg PO BID 30 Days #60 tab 11/08/19 11/10/19 Rx Ibuprofen [Motrin Ib] 400 mg PO Q4H 11/10/19 11/10/19 History Metoprolol Tartrate [Lopressor] 25 mg PO BID 11/10/19 11/10/19 History Allergies Allergy/AdvReac Type Severity Reaction Status Date / Time No Known Allergies Allergy Verified 11/10/19 20:47 Physical Exam Vitals: Vital Signs Temp Pulse Resp BP Pulse Ox 11/12/19 06:52 99.8 F H 91 16 97/67 92 L 11/12/19 01:15 99.8 F H 95 16 102/61 94 L 11/11/19 18:40 99.7 F H 79 18 100/62 96 11/11/19 16:00 87 17 11/11/19 14:58 98.9 F 87 17 98/65 92 L Intake and Output 11/11/19 11/12/19 11/12/19 22:59 06:59 14:59 Output Total 150 Balance -150 Output: Urine 150 Other: Voiding Method Urinal Urinal Diaper Diaper # Voids 1 1 Results 11/10/19 18:47 11/10/19 19:47 Current Medications Generic Name Dose Route Start Last Admin Trade Name Freq PRN Reason Stop Dose Admin Atorvastatin Calcium 40 mg 11/11/19 10:30 11/12/19 07:05 Lipitor PO 40 mg DAILY EVY Administration Duloxetine HCl 20 mg 11/11/19 21:00 11/11/19 20:37 Cymbalta PO 20 mg HS EVY Administration Enoxaparin Sodium 40 mg 11/11/19 13:00 11/12/19 07:06 Lovenox SQ Not Given DAILY EVY Furosemide 40 mg 11/11/19 10:30 11/12/19 07:05 Lasix PO 40 mg BID@0900,1600 EVY Administration Gabapentin 400 mg 11/11/19 10:30 11/12/19 07:05 Neurontin PO 400 mg TID EVY Administration Ibuprofen 400 mg 11/11/19 10:30 Advil PO Q4H PRN Mild Pain Metoprolol Tartrate 25 mg 11/11/19 10:30 11/12/19 07:06 Lopressor PO 25 mg BID EVY Administration Naloxone HCl 0.2 mg 11/10/19 20:07 Narcan IV Q2M PRN Opioid Reversal Pantoprazole Sodium 40 mg 11/11/19 10:30 11/12/19 07:06 Protonix PO 40 mg AC-BRKFST EVY Administration Tamsulosin HCl 0.4 mg 11/11/19 17:30 11/11/19 17:33 Flomax PO 0.4 mg AC-SUPPER EVY Administration Tramadol HCl 50 mg 11/11/19 12:50 11/11/19 13:42 Ultram PO 50 mg QID PRN Administration Pain Intake and Output 11/11/19 11/12/19 11/12/19 22:59 06:59 14:59 Output Total 150 Balance -150 Output: Urine 150 Other: Voiding Method Urinal Urinal Diaper Diaper # Voids 1 1 11/10/19 18:47 11/10/19 19:47
--- NOTE | 2019-11-12 16:29 | P.CNOR ---
History of Present Illness - [facility] Consult date: 11/12/19 History of present illness: This patient is an 84-year-old male who was recently discharged from this facility on 11/08/19 after being diagnosed with an acute urinary tract infection, CHF exacerbation, bilateral pleural effusions. The patient was discharged to home, and he states he was walking in his bathroom with a walker, and he tripped on a rug and fell directly onto the left hip. He states he states immediate pain in the left hip, he denied his head. He was brought to the emergency department by his daughter. X-rays of the left hip in the emergency department show no acute fractures. CT scan of the left hip also shows no evidence for acute fractures. Patient does have a history of the left hip hemiarthroplasty, the patient is unsure of who performed the surgery. He states he does believe it was 56 years ago. He states prior to his fall, he was not experiencing any left hip pain. He was ambulating with a walker with no issues or pain. Patient lives at home in department, and he states his daughter was on the level below him. The patient was admitted under the care of internal medicine with a consult placed to orthopedic surgery for evaluation of his left hip pain. Patient is scheduled for a swallow study this morning, with possible removal of PEG tube. At the time of my exam, the patient states his left hip pain has mildly improved compared to yesterday. He has not attempted to get out of bed since he has been admitted. Patient denies back pain. Patient denies numbness, tingling, weakness of the bilateral lower extremities. Patient denies bowel or bladder incontinence. Patient states the pain is isolated to the left hip. He states otherwise he is feeling well. He denies chest pain or shortness breath, nausea, vomiting, fevers, chills. He has no additional complaints at this time. Vital signs stable. Past Medical History Past Medical History: Heart Failure, COPD, Hyperlipidemia, Hypertension Additional Past Medical History / Comment(s): feeding tube - History of Any Multi-Drug Resistant Organisms: None Reported Past Surgical History: Pacemaker Additional Past Surgical History / Comment(s): pace maker 07/2019 Past Anesthesia/Blood Transfusion Reactions: No Reported Reaction Type of Cardiac Device: Permanent Pacemaker Device Placement Date:: 07/2019 Past Psychological History: No Psychological Hx Reported Smoking Status: Never smoker Past Alcohol Use History: None Reported Past Drug Use History: None Reported - Past Family History Mother Family Medical History: No Reported History Father Family Medical History: No Reported History Medications and Allergies Home Medications Medication Instructions Recorded Confirmed Type DULoxetine HCL [Cymbalta] 20 mg PO HS 11/04/19 11/10/19 History Gabapentin [Neurontin] 400 mg PO TID 11/04/19 11/10/19 History HYDROmorphone [Dilaudid] 2 mg PO QID 11/04/19 11/10/19 History Omeprazole 20 mg PO AC-BRKFST 11/04/19 11/10/19 History Tamsulosin HCl [Flomax] 0.4 mg PO AC-SUPPER 11/04/19 11/10/19 History Atorvastatin [Lipitor] 40 mg PO DAILY 30 Days #30 tab 11/08/19 11/10/19 Rx Furosemide [Lasix] 40 mg PO BID 30 Days #60 tab 11/08/19 11/10/19 Rx Ibuprofen [Motrin Ib] 400 mg PO Q4H 11/10/19 11/10/19 History Metoprolol Tartrate [Lopressor] 25 mg PO BID 11/10/19 11/10/19 History Allergies Allergy/AdvReac Type Severity Reaction Status Date / Time No Known Allergies Allergy Verified 11/10/19 20:47 Physical Examination At the time of my exam, the patient is sitting up in bed in no apparent distress. He appears mildly confused, although he is able to answer questions appropriately and follow commands. His head appears normocephalic and atraumatic. His breathing appears nonlabored. On inspection of his bilateral upper extremities, there are no obvious deformities or signs of trauma. On insp ection of his right lower extremity, there are no obvious deformities or signs of trauma. No pain on palpation of the right hip, thigh, knee, lower leg, ankle. No pain with Passive range of motion of the right hip. On examination of the left hip, there are no abrasions, lacerations. Skin is intact. There is no swelling, ecchymosis, erythema. There are no signs of trauma. There is moderate pain on palpation of the posterior hip. There is no pain on palpation of the groin, anterior, lateral hip. Moderate pain with passive range of motion of the hip. Minimal pain with logrolling. Patient is able to perform straight leg raise without issue. No pain on palpation of the left thigh, knee, lower leg, ankle, foot.Motor and sensory function are intact of the left lower extremity. Dorsalis pedis pulse +2. Calves are soft and nontender to palpation bilaterally. Results Computed tomography scan without contrast left hip 11/10/19: No acute fractures. Evidence of prior left hip hemiarthroplasty. - Labs Labs: Microbiology - Last 24 Hours (Table) 11/10/19 22:00 Blood Culture - Preliminary Blood No Growth after 24 hours H & H 11/10/19 Range/Units 18:47 Hgb 15.0 (13.0-17.5) gm/dL Hct 48.2 (39.0-53.0) % Result Diagrams: 11/10/19 18:47 11/10/19 19:47 Assessment and Plan Assessment: Left hip pain status-post fall Plan: - The clinical and imaging findings were discussed with the patient. The patient was discussed with Dr. Lui. No fractures are seen on CT scan of the left hip. We recommend conservative treatment for his left hip pain at this time. - The patient may bear weight to tolerance on the left lower extremity. Recommended evaluation by physical therapy. - Pain management per admitting team. - Patient should follow-up in the office in 1-2 weeks for repeat x-rays of the left hip. We will follow patient peripherally while he remains inpatient and make recommendations as needed.
[2019-11-12] MEDS: TAMSULOSIN 0.4 MG CAP.ER.24H PO SCH (17:36)
[2019-11-12] MEDS: DULoxetine HCL 20 MG CAPSULE.DR PO SCH (20:16)
--- NOTE | 2019-11-12 21:25 | P.PN ---
Subjective Progress Note Date: 11/12/19 Principal diagnosis: PEG tube removal, status post PEG tube insertion Patient is seen lying in bed in no acute complaints. Swallow evaluation done and patient cleared by speech language pathology for PEG tube removal. Objective - Vital Signs Vital signs: Vital Signs Temp 99.8 F H 11/12/19 06:52 Pulse 91 11/12/19 06:52 Resp 16 11/12/19 06:52 BP 97/67 11/12/19 06:52 Pulse Ox 92 L 11/12/19 06:52 Intake & Output 11/11/19 11/12/19 11/12/19 18:59 06:59 18:59 Intake Total 200 Output Total 150 Balance 200 -150 Intake: Oral 200 Output: Urine 150 Other: Voiding Method Urinal Urinal Urinal Diaper Diaper Diaper # Voids 1 1 - Exam On physical examination, patient appears comfortable in no apparent distress. HEAD: Normocephalic, atraumatic. EYES: No scleral icterus. No conjunctival injection. MOUTH: No lesions, tongue midline. NECK: Trachea midline, no gross abnormalities. ABDOMEN: Soft, PEG tube site clean/eyes/intact. Bowel sounds are positive. No organomegaly. No guarding or rigidity. EXTREMITIES: No pedal edema. SKIN: No rashes, no jaundice. NEUROLOGIC: Alert and oriented x3. No focal deficits. - Labs CBC & Chem 7: 11/10/19 18:47 11/10/19 19:47 Labs: Microbiology - Last 24 Hours (Table) 11/10/19 22:00 Blood Culture - Preliminary Blood No Growth after 24 hours Assessment and Plan (1) Status post insertion of percutaneous endoscopic gastrostomy (PEG) tube Narrative/Plan: 84-year-old male who presented after a mechanical fall. Previously the patient had PEG tube placement reported as secondary to oropharyngeal dysphagia in the setting of pneumonia approximately 8 weeks ago. Since that time the patient has been taking all of his nutrition through an oral route over the past 4 weeks and like the PEG tube replaced. Evaluation by speech language pathology today was negative for evidence of aspiration and he was cleared for PEG tube removal. Patient was seen at bedside where PEG tube was successfully removed and his fistula site dressed appropriately. No bleeding was noted and the patient tolerated the procedure well. Current Visit: Yes Status: Acute Code(s): Z93.1 - GASTROSTOMY STATUS SNOMED Code(s): 787640489 (2) Fall Current Visit: Yes Status: Acute Code(s): W19.XXXA - UNSPECIFIED FALL, INITIAL ENCOUNTER SNOMED Code(s): 9083373 (3) Left hip pain Current Visit: Yes Status: Acute Code(s): M25.552 - PAIN IN LEFT HIP SNOMED Code(s): 48039927 Plan: Supportive care Speech language pathology evaluation today, and patient was cleared for PEG tube removal Okay to resume oral nutrition tonight Okay for anticoagulation therapy as needed Thank you for allowing us to participate in the care of the patient the GI service will stand by, please call us back with any questions or concerns
--- NOTE | 2019-11-12 23:10 | P.PN ---
Progress Note - Text Progress Note Date: 11/12/19 Chief Complaint: fall History of presenting complaint: This is a 84-year-old patient of Dr. Jerrell Naranjo. Patient was discharged 2 days ago by my colleague was covering me when I was away and was then admitted with CHF with EF around 30%,(COPD, depression, GERD, peripheral neuropathy, has some underlying dementia. Patient was then found her short of breath from acute hypoxic respiratory failure secondary to bilateral pleural effusion predominantly in the left side. Patient refused thoracentesis. Patient was at home. He was in the bathroom his hand slipped from the sink and patient been down bumping his left hip. Patient is having pain and there. In the ER x-ray was negative for any fracture. Patient's appetite has been good. Patient had a feeding tube for some time. Not been using it. Has some baseline shortness of breath. No fever no chills. Appetite is fairly good. Does use a walker. Lives with his daughter. Today-seen by GI. Pending PEG tube removal. Otherwise comfortable. Review of systems: Was done for constitutional, cardiovascular, GI, pulmonary. relevant finding as above Active Medications Atorvastatin Calcium (Lipitor) 40 mg PO DAILY [facility] Last Admin: 11/12/19 07:05 Dose: 40 mg Documented by: Duloxetine HCl (Cymbalta) 20 mg PO HS [facility] Last Admin: 11/12/19 20:16 Dose: 20 mg Documented by: Enoxaparin Sodium (Lovenox) 40 mg SQ DAILY [facility] Last Admin: 11/12/19 07:06 Dose: Not Given Documented by: Furosemide (Lasix) 40 mg PO BID@0900,1600 [facility] Last Admin: 11/12/19 16:06 Dose: 40 mg Documented by: Gabapentin (Neurontin) 400 mg PO TID [facility] Last Admin: 11/12/19 20:16 Dose: 400 mg Documented by: Ibuprofen (Advil) 400 mg PO Q4H PRN PRN Reason: Mild Pain Metoprolol Tartrate (Lopressor) 25 mg PO BID [facility] Last Admin: 11/12/19 20:16 Dose: 25 mg Documented by: Naloxone HCl (Narcan) 0.2 mg IV Q2M PRN PRN Reason: Opioid Reversal Pantoprazole Sodium (Protonix) 40 mg PO AC-BRKFST [facility] Last Admin: 11/12/19 07:06 Dose: 40 mg Documented by: Tamsulosin HCl (Flomax) 0.4 mg PO AC-SUPPER [facility] Last Admin: 11/12/19 17:36 Dose: 0.4 mg Documented by: Tramadol HCl (Ultram) 50 mg PO QID PRN PRN Reason: Pain Last Admin: 11/12/19 11:15 Dose: 50 mg Documented by: Physical examination: VITAL SIGNS: 99.8, 91, 16, 97,94%onroomair GENERAL: Sitting up in bed,, comfortable. EYES: Pupils equal. Conjunctiva normal. HEENT: External appearance of nose and ears normal, oral cavity grossly normal. NECK: JVD not raised; masses not palpable. HEART: First and second heart sounds are normal; no edema. LUNGS:[ Respiratory rate increased, diminished breath sounds. ABDOMEN: Soft, nontender, liver spleen not palpable, no masses palpable, PEG tube. PSYCH: Able to answer simple questionsl. MUSCULAR schedule: Evidence of OA INVESTIGATIONS, reviewed in the clinical context: White count 16.8 hemoglobin 15 platelets 373 potassium 4.8 crit 0.98 Troponin I less than 0.012 proBNP 2290 UA negative EKG tracing personally reviewed by me-shows right bundle-branch block possibly paced rhythm Left hip [id number] a prosthesis-no fracture Chest x-ray film personally reviewed by [id number] pleural effusion, chronic Computed tomography scan of the brain and C-spine without contrast-evidence of DJD no fracture evidence of cervical spine surgery Assessment: -This is a patient presented with a fall after his hand slipped on the washbasin and patient took a tumble landing on his left hip. Has had some blunt injury to his left hip. No clinical evidence of fracture. There was no underlying dizziness lightheadedness or palpitation precipitating the fall. Appeared to be more of a mechanical fall. -Mild cognitive impairment likely from late onset Alzheimer's dementia -Chronic congestive heart failure from diastolic dysfunction EF 70% -COPD -Depression otherwise specified -GERD -Peripheral neuropathy -Chronic kidney dysfunction uses a walker -Chronic left-sided pleural effusion patient has declined thoracentesis -BPH with bladder outflow obstruction for which patient takes Flomax -PEG tube continued not be used Plan: Continue current medication treatment plan. Saw the patient earlier today was pending PEG tube removal per GI. Continue feeding orally
[2019-11-13] MEDS: FUROSEMIDE 40 MG TAB PO SCH (07:39)
[2019-11-13] MEDS: METOPROLOL TARTRATE 25 MG TAB PO SCH (07:39)
[2019-11-13] MEDS: PANTOPRAZOLE 40 MG TABLET PO SCH (07:39)
[2019-11-13] MEDS: GABAPENTIN 400 MG CAP PO SCH (07:39)
[2019-11-13] MEDS: ATORVASTATIN 40 MG TAB PO SCH (07:40)
[2019-11-13] MEDS: ENOXAPARIN 40 MG/0.4 ML SYRINGE SQ SCH (07:40)
[2019-11-13 08:00] VITALS: BP 108/71; PULSE 82; RESP 18; TEMP 97.6
--- NOTE | 2019-11-13 12:33 | P.PN ---
Subjective HISTORY OF PRESENTING ILLNESS This is a pleasant 84-year-old male past medical history significant for permanent pacemaker implantation, COPD, hypertension and dyslipidemia. He is seen and examined laying flat resting comfortably in bed. Per the nursing staff he is hallucinating at times. He converses appropriately when awake. He denies chest pain, shortness of breath, dizziness or palpitations. Blood pressure 108/71 heart rate 82 afebrile and maintaining oxygen saturations on nasal cannula. [employer] pacemaker device interrogated. Currently in VVIR 60. We will adjust to VVI demand 50. PHYSICAL EXAMINATION CONSTITUTIONAL: No apparent distress. HEENT: Head is normocephalic. Pupils are equal, round. Sclerae anicteric. Mucous membranes of the mouth are moist. No JVD. No carotid bruit. CHEST EXAMINATION: Lungs are clear to auscultation. No chest wall tenderness is noted on palpation or with deep breathing. Dullness to percussion on the left. HEART EXAMINATION: Irregular rate and rhythm. S1, S2 heard. No murmurs, gallops or rub. EXTREMITIES: 2+ peripheral pulses, no lower extremity edema and no calf tenderness. ASSESSMENT Fall Paroxysmal atrial fibrillation with controlled ventricular rates Leukocytosis Hypertension Dyslipidemia Left pleural effusion PLAN Pacemaker mode was adjusted to VVI rate of 50. Discussed with him that his pleural effusion would likely not entirely improve with diuretics alone. Follow up in the office with Dr. Ray upon discharge. Nurse Practitioner note has been reviewed, I agree with a documented findings and plan of care. Patient was seen and examined. Objective - Vital Signs Vital signs: Vital Signs Temp 97.6 F 11/13/19 07:00 Pulse 82 11/13/19 07:00 Resp 18 11/13/19 07:00 BP 108/71 11/13/19 07:00 Pulse Ox 92 L 11/13/19 07:00 Intake & Output 11/12/19 11/13/19 11/13/19 18:59 06:59 18:59 Intake Total 540 Output Total 400 Balance 140 Intake: Oral 540 Output: Urine 400 Other: Voiding Method Urinal Urinal Diaper Diaper # Voids 2 5 # Bowel Movements 2 - Labs CBC & Chem 7: 11/10/19 18:47 11/10/19 19:47 Labs: Microbiology - Last 24 Hours (Table) 11/10/19 22:00 Blood Culture - Preliminary Blood No Growth after 48 hours
--- NOTE | 2019-11-13 13:02 | CDI ---
Documentation Clarification Form Date: 11/13/2019 12:49:58 PM From: Suzan BashirNIKITA rojas, CCDS Admit Date: 11/10/2019 09:51:00 PM Patient Name: Daniel Silva Visit Number: [id number] Discharge Date: ATTENTION: The Clinical Documentation Specialists (CDI) and [facility] Coding Staff appreciate your assistance in clarifying documentation. Please respond to the clarification below the line at the bottom and electronically sign. The CDI & [facility] Coding staff will review the response and follow-up if needed. Please note: Queries are made part of the Legal Health Record. If you have any questions, please contact the author of this message via ITS. Dr. Trey Alfredo: Per nursing documentation on 11/10: patient has a "Stage 1 Pressure Ulcer on his bottom." nos. History/Risk Factors: Alzheimer's dementia, Chronic diastolic CHF, COPD, Depression, Peripheral neuropathy, Chronic kidney dysfunction, Chronic left side pleural effusion, BPH with bladder outflow obstruction & has had a PEG tube for about 8 weeks. Clinical Indicators: Patient presented to the ED on 11/09 from home after suffering a fall in the bathroom of his daughter's home, striking against the sink & falling onto his left hip. History of left hip hemiarthroplasty. No fractures detected on imaging. Recently discharged. Per Nursing documentation on 11/10: Location of pressure ulcer: "Bottom" nos Wound description: Stage 1 Treatment: IV Rocephin (pneumonia found on CXR), IV Morphine Sulfate, IV fluid 1,000 mls @ 130/hr. No documented treatment toward pressure ulcer. Consults: GI for PEG tube removal, Orthopedics for Left Hip Pain w/known hemiarthroplasty & Cardiology for Paroxysmal Atrial Fibrillation (no anticoagulants) In your professional opinion, can you please clarify the diagnosis, location, laterality and whether present on admission (POA): Pressure Ulcer ruled out Stage 1 Pressure/Decubitus Ulcer (intact skin, non-blanching redness of local area) Other ulcer or wound, please specify: Other condition, please specify Unable to determine o Please indicate etiology of pressure ulcer (if known). o Please indicate if pressure ulcer is POA: Yes or No (Last Revision: March 2017) Stage I pressure/decubitus ulcer, POA [facility]
--- NOTE | 2019-11-13 20:43 | P.DS ---
Providers Date of admission: 11/10/19 21:51 Expected date of discharge: 11/13/19 Attending physician: Trey Alfredo Consults: 11/11/19 12:48 Consult Physician Routine Consulting Provider: Jerrell Matos Consult Reason/Comments: left Hip pain - fall Do you want consulting provider notified?: Yes 11/11/19 12:49 Consult Physician Routine Consulting Provider: Mani Chiu Consult Reason/Comments: AF Do you want consulting provider notified?: Yes Primary care physician: Jerrell Lewis [facility] Course: Chief Complaint: fall History of presenting complaint: This is a 84-year-old patient of Dr. Jerrell Naranjo. Patient was discharged 2 days ago by my colleague was covering me when I was away and was then admitted with CHF with EF around 30%,(COPD, depression, GERD, peripheral neuropathy, has some underlying dementia. Patient was then found her short of breath from acute hypoxic respiratory failure secondary to bilateral pleural effusion predom inantly in the left side. Patient refused thoracentesis. Patient was at home. He was in the bathroom his hand slipped from the sink and patient been down bumping his left hip. Patient is having pain and there. In the ER x-ray was negative for any fracture. Patient's appetite has been good. Patient had a feeding tube for some time. Not been using it. Has some baseline shortness of breath. No fever no chills. Appetite is fairly good. Does use a walker. Lives with his daughter. Admitted with a mechanical fall. PEG tube was removed by Dr. Shankar. Today-Comfortable. Tolerating a diet. Narcotic pain medications-discontinued. Patient doing well with Tylenol and Motrin. Per speech therapist patient to have regular/nectar thick liquids. Consultation: Dr. Shankar-GI Dr. Jr Bell-cardiology Physical examination: VITAL SIGNS: 97.6, 82, 18, 108/71, 92% on 2 L GENERAL: Sitting up in bed,, comfortable. EYES: Pupils equal. Conjunctiva normal. HEENT: External appearance of nose and ears normal, oral cavity grossly normal. NECK: JVD not raised; masses not palpable. HEART: First and second heart sounds are normal; no edema. LUNGS:[ Respiratory rate increased, diminished breath sounds. ABDOMEN: Soft, nontender, liver spleen not palpable, no masses palpable, PEG tube. PSYCH: Able to answer simple questionsl. INVESTIGATIONS, reviewed in the clinical context: White count 16.8 hemoglobin 15 platelets 373 potassium 4.8 crit 0.98 Troponin I less than 0.012 proBNP 2290 UA negative EKG tracing personally reviewed by me-shows right bundle-branch block possibly paced rhythm Left hip [id number]-fzv-[id number] a prosthesis-no fracture Chest x-ray film personally reviewed by [id number] pleural effusion, chronic Computed tomography scan of the brain and C-spine without contrast-evidence of DJD no fracture evidence of cervical spine surgery COVID-19 PCR-not detected Assessment: -This is a patient presented with a fall after his hand slipped on the washbasin and patient took a tumble landing on his left hip. Has had some blunt injury to his left hip. No clinical evidence of fracture. There was no underlying dizziness lightheadedness or palpitation precipitating the fall. Appeared to be more of a mechanical fall. -Mild cognitive impairment likely from late onset Alzheimer's dementia -Chronic congestive heart failure from diastolic dysfunction EF 70% -COPD -Depression otherwise specified -GERD -Peripheral neuropathy -Chronic kidney dysfunction uses a walker -Chronic left-sided pleural effusion patient has declined thoracentesis -BPH with bladder outflow obstruction for which patient takes Flomax -PEG tube-not being used-removed Disposition: Home Patient Condition at Discharge: Stable Plan - Discharge Summary Discharge Rx Participant: Yes New Discharge Prescriptions: New Acetaminophen Tab [Tylenol] 650 mg PO Q6H PRN #1 tab PRN Reason: Pain Continue Omeprazole 20 mg PO AC-BRKFST DULoxetine HCL [Cymbalta] 20 mg PO HS Tamsulosin HCl [Flomax] 0.4 mg PO AC-SUPPER Gabapentin [Neurontin] 400 mg PO TID Atorvastatin [Lipitor] 40 mg PO DAILY 30 Days #30 tab Furosemide [Lasix] 40 mg PO BID 30 Days #60 tab Metoprolol Tartrate [Lopressor] 25 mg PO BID Ibuprofen [Motrin Ib] 400 mg PO Q4H Discontinued HYDROmorphone [Dilaudid] 2 mg PO QID Discharge Medication List DULoxetine HCL [Cymbalta] 20 mg PO HS 11/04/19 [History] Gabapentin [Neurontin] 400 mg PO TID 11/04/19 [History] Omeprazole 20 mg PO AC-BRKFST 11/04/19 [History] Tamsulosin HCl [Flomax] 0.4 mg PO AC-SUPPER 11/04/19 [History] Atorvastatin [Lipitor] 40 mg PO DAILY 30 Days #30 tab 11/08/19 [Rx] Furosemide [Lasix] 40 mg PO BID 30 Days #60 tab 11/08/19 [Rx] Ibuprofen [Motrin Ib] 400 mg PO Q4H 11/10/19 [History] Metoprolol Tartrate [Lopressor] 25 mg PO BID 11/10/19 [History] Acetaminophen Tab [Tylenol] 650 mg PO Q6H PRN #1 tab 11/13/19 [Rx] Follow up Appointment(s)/Referral(s): Jerrell Lewis DO [Primary Care Provider] - 1-2 days (Please call the office to schedule your telehealth visit.) Golden Lui MD [Medical Doctor] - 11/20/19 1:00 pm Patient Instructions/Handouts: Fall Prevention for Older Adults (DC) Discharge Disposition: HOME SELF-CARE
== END 2019-11-13 14:51 | disposition home or self-care (01) | DRG 556 ==
LOC: EC 18:04 → 4SSUR 21:51
PROVIDERS: ADMIT Hospitalist; ATTEND Hospitalist
PROC: 0DP6XUZ Removal of Feeding Device from Stomach, External Approach (ICD-10-PCS; principal; 2019-11-12)
DX: M25.552 Pain in left hip (principal); I50.42 Chronic combined systolic (congestive) and diastolic (congestive) heart failure; Z43.1 Encounter for attention to gastrostomy; W18.39XA Other fall on same level, initial encounter; Y93.9 Activity, unspecified; Y92.002 Bathroom of unspecified non-institutional (private) residence as the place of occurrence of the external cause; E78.5 Hyperlipidemia, unspecified; F02.80 Dementia in other diseases classified elsewhere, unspecified severity, without behavioral disturbance, psychotic disturbance, mood disturbance, and anxiety; G30.1 Alzheimer's disease with late onset; F32.9 Major depressive disorder, single episode, unspecified; G62.9 Polyneuropathy, unspecified; I11.0 Hypertensive heart disease with heart failure; I48.0 Paroxysmal atrial fibrillation; Z87.01 Personal history of pneumonia (recurrent); J44.9 Chronic obstructive pulmonary disease, unspecified; K21.9 Gastro-esophageal reflux disease without esophagitis; L89.301 Pressure ulcer of unspecified buttock, stage 1; N28.9 Disorder of kidney and ureter, unspecified; N32.0 Bladder-neck obstruction; N40.1 Benign prostatic hyperplasia with lower urinary tract symptoms; Z11.59 Encounter for screening for other viral diseases; Z87.440 Personal history of urinary (tract) infections; W18.09XA Striking against other object with subsequent fall, initial encounter; Z79.899 Other long term (current) drug therapy; Z87.891 Personal history of nicotine dependence; Z96.642 Presence of left artificial hip joint; Z95.0 Presence of cardiac pacemaker
CPT/HCPCS: 36415; 70450; 71046; 72125; 73502; 74230; 80053; 81003; 83880; 84484; 85025; 87040; 93005; 96365; 99285

== ENCOUNTER 2019-11-18 15:47 | Inpatient (IN) | payer MEDICARE, BC ==
[2019-11-18] MEDS ORDERED: SODIUM CHLORIDE 0.9% 1,000 ML IV STA (16:33)
--- NOTE | 2019-11-18 16:36 | ED ---
Weakness HPI - General Chief complaint: Dizziness Stated complaint: Lethargic Time Seen by Provider: 11/18/19 15:53 Source: patient, RN notes reviewed, old records reviewed Mode of arrival: EMS Limitations: no limitations - History of Present Illness Initial comments: This is an 84-year-old male DF for evaluation patient presents today for evaluation regards to severe weakness dehydration failure to thrive not eating and drinking 5 days increasingly weak for 5 days patient is awake and alert and happy with no complaints. Patient has no fevers or other illness patient presents with daughter who provides history patient's unreliable historian MD Complaint: generalized weakness -: days(s) (5) Location: generalized Severity: moderate Severity scale (1-10): 5 Consistency: constant Improves with: none Worsens with: none Context: recent illness Associated Symptoms: denies other symptoms - Related Data Home Medications Medication Instructions Recorded Confirmed DULoxetine HCL [Cymbalta] 20 mg PO HS 11/04/19 11/18/19 Gabapentin [Neurontin] 400 mg PO TID 11/04/19 11/18/19 Omeprazole 20 mg PO AC-BRKFST 11/04/19 11/18/19 Tamsulosin HCl [Flomax] 0.4 mg PO AC-SUPPER 11/04/19 11/18/19 Ibuprofen [Motrin Ib] 400 mg PO Q4H 11/10/19 11/18/19 Metoprolol Tartrate [Lopressor] 25 mg PO DAILY 11/10/19 11/18/19 HYDROmorphone [Dilaudid] 2 mg PO QID 11/18/19 11/18/19 Previous Rx's Medication Instructions Recorded Atorvastatin [Lipitor] 40 mg PO DAILY 30 Days #30 tab 11/08/19 Furosemide [Lasix] 40 mg PO BID 30 Days #60 tab 11/08/19 Allergies Allergy/AdvReac Type Severity Reaction Status Date / Time No Known Allergies Allergy Verified 11/18/19 16:49 Review of Systems ROS Statement: Those systems with pertinent positive or pertinent negative responses have been documented in the HPI. ROS Other: All systems not noted in ROS Statement are negative. Past Medical History Past Medical History: Heart Failure, COPD, Hyperlipidemia, Hypertension Additional Past Medical History / Comment(s): feeding tube - History of Any Multi-Drug Resistant Organisms: None Reported Past Surgical History: Pacemaker Additional Past Surgical History / Comment(s): pace maker 07/2019 Past Anesthesia/Blood Transfusion Reactions: No Reported Reaction Type of Cardiac Device: Permanent Pacemaker Device Placement Date:: 07/2019 Past Psychological History: No Psychological Hx Reported Smoking Status: Never smoker Past Alcohol Use History: None Reported Past Drug Use History: None Reported - Past Family History Mother Family Medical History: No Reported History Father Family Medical History: No Reported History General Exam Limitations: no limitations General appearance: alert, in no apparent distress Head exam: Present: atraumatic, normocephalic, normal inspection Eye exam: Present: normal appearance, PERRL, EOMI. Absent: scleral icterus, conjunctival injection, periorbital swelling ENT exam: Present: normal exam, mucous membranes moist Neck exam: Present: normal inspection. Absent: tenderness, meningismus, lymphadenopathy Respiratory exam: Present: normal lung sounds bilaterally. Absent: respiratory distress, wheezes, rales, rhonchi, stridor Cardiovascular Exam: Present: regular rate, normal rhythm, normal heart sounds. Absent: systolic murmur, diastolic murmur, rubs, gallop, clicks GI/Abdominal exam: Present: soft, normal bowel sounds. Absent: distended, tenderness, guarding, rebound, rigid Extremities exam: Present: normal inspection, full ROM, normal capillary refill. Absent: tenderness, pedal edema, joint swelling, calf tenderness Back exam: Present: normal inspection Neurological exam: Present: alert, oriented X3, CN II-XII intact Psychiatric exam: Present: normal affect, normal mood Skin exam: Present: warm, dry, intact, normal color. Absent: rash Course Vital Signs 11/18/19 11/18/19 11/18/19 15:51 16:30 17:30 Temperature 98.2 F Pulse Rate 83 75 73 Respiratory 18 22 18 Rate Blood Pressure 109/68 115/70 120/73 O2 Sat by Pulse 95 99 85 L Oximetry 11/18/19 11/18/19 11/18/19 18:30 19:30 20:00 Temperature Pulse Rate 73 78 81 Respiratory 14 17 18 Rate Blood Pressure 106/73 105/69 105/68 O2 Sat by Pulse 99 100 100 Oximetry - Reevaluation(s) Reevaluation #1: 11/18/19 20:48 Medical record is reviewed Reevaluation #2: 11/18/19 20:48 Patient still feeling sick with no significant improvement in symptoms - Consultations Consultation #1: Soap with agrees for admission EKG Findings - EKG Comments: EKG Findings:: EKG shows A. fib rate of 67, QRS 144 QTc 467 Medical Decision Making - Medical Decision Making 84 male DF for evaluation patient Dese for evaluation for weakness severe deh ydration and dizziness at eating or drinking and failure to thrive. Patient will be admitted for hydration and further monitoring - Lab Data Result diagrams: 11/18/19 20:00 11/18/19 20:00 Lab Results 11/18/19 11/18/19 11/18/19 Range/Units 16:43 20:00 20:00 WBC 15.9 H (3.8-10.6) k/uL RBC 5.02 (4.30-5.90) m/uL Hgb 13.5 (13.0-17.5) gm/dL Hct 42.1 (39.0-53.0) % MCV 83.7 (80.0-100.0) fL MCH 26.8 (25.0-35.0) pg MCHC 32.0 (31.0-37.0) g/dL RDW 16.0 H (11.5-15.5) % Hypochromasia Moderate Poikilocytosis Slight Anisocytosis Slight Sodium 141 (137-145) mmol/L Potassium 3.3 L (3.5-5.1) mmol/L Chloride 102 (98-107) mmol/L Carbon Dioxide 30 (22-30) mmol/L Anion Gap 9 mmol/L BUN 21 H (9-20) mg/dL Creatinine 0.94 (0.66-1.25) mg/dL Est GFR (CKD-EPI)AfAm 85 (>60 ml/min/1.73 sqM) Est GFR (CKD-EPI)NonAf 73 (>60 ml/min/1.73 sqM) Glucose 142 H (74-99) mg/dL Plasma Lactic Acid Hecotr 1.7 (0.7-2.0) mmol/L Calcium 8.3 L (8.4-10.2) mg/dL Phosphorus 3.6 (2.5-4.5) mg/dL Magnesium 1.9 (1.6-2.3) mg/dL Total Bilirubin 1.0 (0.2-1.3) mg/dL AST 24 (17-59) U/L ALT 18 (4-49) U/L Alkaline Phosphatase 97 (38-126) U/L Creatine Kinase 24 L (55-170) U/L Troponin I (0.000-0.034) ng/mL Total Protein 6.5 (6.3-8.2) g/dL Albumin 3.3 L (3.5-5.0) g/dL 11/18/19 Range/Units 20:00 WBC (3.8-10.6) k/uL RBC (4.30-5.90) m/uL Hgb (13.0-17.5) gm/dL Hct (39.0-53.0) % MCV (80.0-100.0) fL MCH (25.0-35.0) pg MCHC (31.0-37.0) g/dL RDW (11.5-15.5) % Hypochromasia Poikilocytosis Anisocytosis Sodium (137-145) mmol/L Potassium (3.5-5.1) mmol/L Chloride (98-107) mmol/L Carbon Dioxide (22-30) mmol/L Anion Gap mmol/L BUN (9-20) mg/dL Creatinine (0.66-1.25) mg/dL Est GFR (CKD-EPI)AfAm (>60 ml/min/1.73 sqM) Est GFR (CKD-EPI)NonAf (>60 ml/min/1.73 sqM) Glucose (74-99) mg/dL Plasma Lactic Acid Hector (0.7-2.0) mmol/L Calcium (8.4-10.2) mg/dL Phosphorus (2.5-4.5) mg/dL Magnesium (1.6-2.3) mg/dL Total Bilirubin (0.2-1.3) mg/dL AST (17-59) U/L ALT (4-49) U/L Alkaline Phosphatase (38-126) U/L Creatine Kinase (55-170) U/L Troponin I <0.012 (0.000-0.034) ng/mL Total Protein (6.3-8.2) g/dL Albumin (3.5-5.0) g/dL - Radiology Data Radiology results: report reviewed (CT brain and chest x-rays negative for acute disease), image reviewed Disposition Clinical Impression: Dehydration, Generalized weakness, Pleural effusion, Dizziness Disposition: ADMITTED IP TO THIS HOSP Condition: Fair Is patient prescribed a controlled substance at d/c from ED?: No Referrals: Jerrell Lewis DO [Primary Care Provider] - 1-2 days
--- NOTE | 2019-11-18 17:14 | CT ---
EXAMINATION TYPE: CT brain wo con DATE OF EXAM: 11/18/2019 COMPARISON: 11/10/2019 HISTORY: Weakness. CT DLP: 1064.4 mGycm Automated exposure control for dose reduction was used. There is cerebral cortical atrophy. There is no mass effect nor midline shift. There is no sign of in tracranial hemorrhage. Calvarium is intact. Skull base is intact. IMPRESSION: Cerebral atrophy. No acute intracranial abnormality. No change.
--- NOTE | 2019-11-18 17:29 | XR ---
EXAMINATION TYPE: XR chest 2V DATE OF EXAM: 11/18/2019 COMPARISON: 11/10/2019 HISTORY: Weakness TECHNIQUE: FINDINGS: There is blunting left costophrenic angle. There is slight blunting right costophrenic angl e. There is left axillary pacemaker. There are chest leads. There is no gross heart failure. Heart is probably enlarged. IMPRESSION: Moderate left pleural effusion unchanged. Small right pleural effusion increased. No obvi ous heart failure.
[2019-11-18 20:19] LABS: Anisocytosis Slight; HCT 42.1 % (39.0-53.0); HGB 13.5 gm/dL (13.0-17.5); Hypochromasia Moderate; MCH 26.8 pg (25.0-35.0); MCV 83.7 fL (80.0-100.0); Mean Platelet Volume 9.5; Poikilocytosis Slight; RBC 5.02 m/uL (4.30-5.90); WBC 15.9 k/uL (3.8-10.6)
[2019-11-18 20:20] LABS: Albumin 3.3 g/dL (3.5-5.0); Calcium 8.3 mg/dL (8.4-10.2); Magnesium 1.9 mg/dL (1.6-2.3); Phosphorus 3.6 mg/dL (2.5-4.5); Potassium 3.3 mmol/L (3.5-5.1); Total Protein 6.5 g/dL (6.3-8.2)
[2019-11-18] MEDS ORDERED: NITROGLYCERIN SL TABS 0.4 MG TAB SUBLINGUAL PRN (20:40)
[2019-11-18 21:01] LABS: Monocytes # (M) 0.32 k/uL (0-1.0); Neutrophils # (M) 9.38 k/uL (1.3-7.7); Neutrophils % (M) 59 %; Nucleated Red Blood Cells 0 /100 WBC (0-0); Total Cells Counted 100
[2019-11-18 21:03] LABS: Platelet Count 354 k/uL (150-450)
[2019-11-18] MEDS ORDERED: HYDROmorphone 2 MG TAB PO PRN (23:11)
[2019-11-18] MEDS: GABAPENTIN 400 MG CAP PO SCH (23:38)
[2019-11-18] MEDS: DULoxetine HCL 20 MG CAPSULE.DR PO SCH (23:39)
[2019-11-19 02:25] LABS: Cholesterol 111 mg/dL (<200); HDL Cholesterol 34 mg/dL (40-60); LDL Cholesterol,Calculated 65 mg/dL (0-99); Triglycerides 62 mg/dL (<150)
[2019-11-19] MEDS: PANTOPRAZOLE 40 MG TABLET PO SCH (08:31)
[2019-11-19] MEDS: GABAPENTIN 400 MG CAP PO SCH ×3 (08:31→21:00)
[2019-11-19] MEDS: ATORVASTATIN 40 MG TAB PO SCH (08:31)
[2019-11-19] MEDS ORDERED: FUROSEMIDE 40 MG TAB PO SCH (09:00)
[2019-11-19] MEDS ORDERED: METOPROLOL TARTRATE 25 MG TAB PO SCH (09:00)
[2019-11-19] MEDS ORDERED: SODIUM CHLORIDE 0.9% 1,000 ML IV SCH (12:00)
[2019-11-19 14:29] VITALS: BMI 22.4
[2019-11-19] MEDS: TAMSULOSIN 0.4 MG CAP.ER.24H PO SCH (15:43)
[2019-11-19] MEDS: DULoxetine HCL 20 MG CAPSULE.DR PO SCH (21:00)
[2019-11-19] MEDS: ACETAMINOPHEN TAB 325 MG TAB PO PRN (21:00)
--- NOTE | 2019-11-19 21:26 | P.HPIM ---
History of Present Illness H&P Date: 11/19/19 Chief Complaint: Weakness for History of presenting complaint: This is a 84-year-old patient of Dr. Jerrell Naranjo. Patient was discharged on November 07 by my colleague was then admitted with CHF with EF around 30%,(COPD, depression, GERD, peripheral neuropathy, has some underlying dementia. Patient was then found her short of breath from acute hypoxic respiratory failure sec ondary to bilateral pleural effusion predominantly in the left side. Patient refused thoracentesis. Patient admitted from November 09 through November 12. Presented with a fall. Found to be mechanical. PEG tube that was not being used was removed. Patient yet again presents with weakness. Stated he felt dizzy. And fell down. Was thought able to get up. Needed assistance from his family. Appetite was okay. Tired and rundown a bit no fever no chills. Breathing is be stable. Patient only able to answer simple questions Review of systems: GEN.: Tired EYES: None HEENT: Decreased hearing] NECK: None RESPIRATORY: Baseline shortness of breath CARDIOVASCULAR: None GASTROINTESTINAL: None GENITOURINARY: None MUSCULOSKELETAL: [Pain in different joints LYMPHATICS: None HEMATOLOGICAL: None PSYCHIATRY: forgetful NEUROLOGICAL: Does use a walker Past medical history to include: Cognitive impairment, peripheral neuropathy, GERD, depression, permanent pacemaker, COPD, diastolic heart failure from EF of 70%, chronic pleural effusion, feeding tube Social history: No history of smoking or alcohol. Lives with his daughter. Does use a walker. Physical examination: VITAL SIGNS: 98.2, 75, 22, 150-70, 95% on room air GENERAL: BMI 22.4, laying in bed, tired appearing EYES: Pupils equal. Conjunctiva normal. HEENT: External appearance of nose and ears normal, oral cavity grossly normal. NECK: JVD not raised; masses not palpable. HEART: First and second heart sounds are normal; no edema. LUNGS:[ Respiratory rate increased, diminished breath sounds. ABDOMEN: Soft, nontender, liver spleen not palpable, no masses palpable. PSYCH: Able to answer simple questionsl. MUSCULAR schedule: Evidence of OA NEUROLOGICAL: Cranial nerves grossly intact; no facial asymmetry, power and sensation grossly intact. LYMPHATICS: No lymph nodes palpable in the axilla and neck INVESTIGATIONS, reviewed in the clinical context: White count 15.9 hemoglobin 13.5 potassium 3.3 creatinine 0.94 bun 21 Troponin I 3 negative LDL 65 COVID 19 PCR-not detected EKG tracing personally reviewed by me-paced rhythm with AArmida noriega Computed tomography scan of the brain-cerebral atrophy Chest x-ray film personally reviewed by me-left pleural effusion chronic Assessment: -Patient presented with episode of dizziness and fall unable to pick himself. Getting dizzy again. Has been eating okay. Seems to be multifactorial including myopathy weakness and recent hospitalization. Medical debility. -Mild cognitive impairment likely from late onset Alzheimer's dementia -Chronic congestive heart failure from diastolic dysfunction EF 70% -COPD -Depression otherwise specified -GERD -Peripheral neuropathy -Chronic kidney dysfunction uses a walker -Chronic left-sided pleural effusion patient has declined thoracentesis -BPH with bladder outflow obstruction for which patient takes Flomax Plan: Give IV fluids. PTOT. Fall precautions. no evidence of any infection. we'll change lopressor 12.5 twice a day. we'll cut back the dose of neurontin. discharge planning consulted Past Medical History Past Medical History: Heart Failure, COPD, Hyperlipidemia, Hypertension Additional Past Medical History / Comment(s): feeding tube - History of Any Multi-Drug Resistant Organisms: None Reported Past Surgical History: Pacemaker Additional Past Surgical History / Comment(s): pace maker 07/2019 Past Anesthesia/Blood Transfusion Reactions: No Reported Reaction Type of Cardiac Device: Permanent Pacemaker Device Placement Date:: 07/2019 Past Psychological History: No Psychological Hx Reported Smoking Status: Never smoker Past Alcohol Use History: None Reported Past Drug Use History: None Reported - Past Family History Mother Family Medical History: No Reported History Father Family Medical History: No Reported History Medications and Allergies Home Medications Medication Instructions Recorded Confirmed Type DULoxetine HCL [Cymbalta] 20 mg PO HS 11/04/19 11/18/19 History Gabapentin [Neurontin] 400 mg PO TID 11/04/19 11/18/19 History Omeprazole 20 mg PO AC-BRKFST 11/04/19 11/18/19 History Tamsulosin HCl [Flomax] 0.4 mg PO AC-SUPPER 11/04/19 11/18/19 History Atorvastatin [Lipitor] 40 mg PO DAILY 30 Days #30 tab 11/08/19 11/18/19 Rx Furosemide [Lasix] 40 mg PO BID 30 Days #60 tab 11/08/19 11/18/19 Rx Ibuprofen [Motrin Ib] 400 mg PO Q4H 11/10/19 11/18/19 History Metoprolol Tartrate [Lopressor] 25 mg PO DAILY 11/10/19 11/18/19 History HYDROmorphone [Dilaudid] 2 mg PO QID 11/18/19 11/18/19 History Allergies Allergy/AdvReac Type Severity Reaction Status Date / Time No Known Allergies Allergy Verified 11/18/19 16:49 Physical Exam Vitals: Vital Signs Temp Pulse Pulse Resp BP BP Pulse Ox 11/19/19 08:00 97.5 F L 84 18 109/75 94 L 11/19/19 04:21 98.1 F 86 18 128/74 94 L 11/19/19 00:10 98.1 F 86 18 128/74 94 L 11/18/19 20:00 81 18 105/68 100 11/18/19 19:30 78 17 105/69 100 11/18/19 18:30 73 14 106/73 99 11/18/19 17:30 73 18 120/73 85 L 11/18/19 16:30 75 22 115/70 99 11/18/19 15:51 98.2 F 83 18 109/68 95 Intake and Output 11/18/19 11/19/19 11/19/19 22:59 06:59 14:59 Other: Voiding Method Diaper Incontinent # Voids 1 Weight 64.41 kg 66.8 kg Results CBC & Chem 7: 11/18/19 20:00 11/18/19 20:00 Labs: Abnormal Lab Results - Last 24 Hours (Table) 11/18/19 11/18/19 11/19/19 Range/Units 20:00 20:00 02:01 WBC 15.9 H (3.8-10.6) k/uL RDW 16.0 H (11.5-15.5) % Neutrophils # (Manual) 9.38 H (1.3-7.7) k/uL Lymphocytes # (Manual) 6.20 H (1.0-4.8) k/uL Potassium 3.3 L (3.5-5.1) mmol/L BUN 21 H (9-20) mg/dL Glucose 142 H (74-99) mg/dL Calcium 8.3 L (8.4-10.2) mg/dL Creatine Kinase 24 L (55-170) U/L Albumin 3.3 L (3.5-5.0) g/dL HDL Cholesterol 34 L (40-60) mg/dL Thrombosis Risk Factor Assmnt - Choose All That Apply Any of the Below Risk Factors Present?: No Other Risk Factors: Yes Each Risk Factor Represents 3 Points: Age 75 years or older Other congenital or acquired thrombophilia - If yes, enter type in comment: No Thrombosis Risk Factor Assessment Total Risk Factor Score: 3 Thrombosis Risk Factor Assessment Level: Moderate Risk
[2019-11-20 06:41] LABS: INR 1.1 (<1.2); Partial Thromboplastin Time 26.5 sec (22.0-30.0); Prothrombin Time 10.8 sec (9.0-12.0)
[2019-11-20] MEDS: ATORVASTATIN 40 MG TAB PO SCH (08:20)
[2019-11-20] MEDS: GABAPENTIN 300 MG CAP PO SCH ×2 (08:20→20:39)
[2019-11-20] MEDS: METOPROLOL TARTRATE 12.5 MG TAB PO SCH ×2 (08:20→20:39)
[2019-11-20] MEDS: PANTOPRAZOLE 40 MG TABLET PO SCH (08:21)
[2019-11-20] MEDS ORDERED: FUROSEMIDE 40 MG TAB PO SCH (09:00)
[2019-11-20] MEDS: ACETAMINOPHEN TAB 325 MG TAB PO PRN ×2 (11:05→18:32)
[2019-11-20 12:26] LABS: African American GFR (CKD) >90 (>60 ml/min/1.73 sqM); Anion Gap 5 mmol/L; Blood Urea Nitrogen 16 mg/dL (9-20); Calcium 8.6 mg/dL (8.4-10.2); Carbon Dioxide 30 mmol/L (22-30); Chloride 104 mmol/L (98-107); Glucose 129 mg/dL (74-99); Non-African American GFR(CKD) 79 (>60 ml/min/1.73 sqM); Potassium 3.4 mmol/L (3.5-5.1); Sodium 139 mmol/L (137-145)
[2019-11-20] MEDS: TAMSULOSIN 0.4 MG CAP.ER.24H PO SCH (15:24)
--- NOTE | 2019-11-20 20:01 | P.PN ---
Progress Note - Text Progress Note Date: 11/20/19 Chief Complaint: Weakness for History of presenting complaint: This is a 84-year-old patient of Dr. Jerrell Naranjo. Patient was discharged on November 07 by my colleague was then admitted with CHF with EF around 30%,(COPD, depression, GERD, peripheral neuropathy, has some underlying dementia. Patient was then found her short of breath from acute hypoxic respiratory failure secondary to bilateral pleural effusion predominantly in the left side. Patient refused thoracentesis. Patient admitted from November 09 through November 12. Presented with a fall. Found to be mechanical. PEG tube that was not being used was removed. Patient yet again presents with weakness. Stated he felt dizzy. And fell down. Was thought able to get up. Needed assistance from his family. Appetite was okay. Tired and rundown a bit no fever no chills. Breathing is be stable. Patient only able to answer simple questions Today-this better. More cheerful. Did work with physical therapy. Use a rolling walker about 80 feet. Lasix has been held. Review of systems: Was done for constitutional, cardiovascular, GI, pulmonary. relevant finding as above Active Medications Acetaminophen (Tylenol Tab) 650 mg PO Q6HR PRN PRN Reason: Fever and/ or Pain Last Admin: 11/20/19 18:32 Dose: 650 mg Documented by: Atorvastatin Calcium (Lipitor) 40 mg PO DAILY [facility] Last Admin: 11/20/19 08:20 Dose: 40 mg Documented by: Duloxetine HCl (Cymbalta) 20 mg PO [facility] Last Admin: 11/19/19 21:00 Dose: 20 mg Documented by: Gabapentin (Neurontin) 300 mg PO BID [facility] Last Admin: 11/20/19 08:20 Dose: 300 mg Documented by: Metoprolol Tartrate (Lopressor) 12.5 mg PO BID [facility] Last Admin: 11/20/19 08:20 Dose: 12.5 mg Documented by: Nitroglycerin (Nitrostat) 0.4 mg SUBLINGUAL Q5M PRN PRN Reason: Chest Pain Pantoprazole Sodium (Protonix) 40 mg PO AC-BRKFST [facility] Last Admin: 11/20/19 08:21 Dose: 40 mg Documented by: Tamsulosin HCl (Flomax) 0.4 mg PO AC-SUPPER [facility] Last Admin: 11/20/19 15:24 Dose: 0.4 mg Documented by: Physical examination: VITAL SIGNS: 97.6, 83, 16, 125/82, 96% on room air GENERAL: Sitting or sitting up in a chair, more cheerful today EYES: Pupils equal. Conjunctiva normal. HEENT: External appearance of nose and ears normal, oral cavity grossly normal. NECK: JVD not raised; masses not palpable. HEART: First and second heart sounds are normal; no edema. LUNGS:[ Respiratory rate increased, diminished breath sounds. ABDOMEN: Soft, nontender, liver spleen not palpable, no masses palpable. PSYCH: Able to answer simple questionsl. MUSCULAR schedule: Evidence of OA INVESTIGATIONS, reviewed in the clinical context: Potassium 3.4 creatinine 0.86 Previous testing White count 15.9 hemoglobin 13.5 potassium 3.3 creatinine 0.94 bun 21 Troponin I 3 negative LDL 65 COVID 19 PCR-not detected EKG tracing personally reviewed by me-paced rhythm with A. fib Computed tomography scan of the brain-cerebral atrophy Chest x-ray film personally reviewed by me-left pleural effusion chronic Assessment: -Patient presented with episode of dizziness and fall unable to pick himself. Getting dizzy again. Has been eating okay. Seems to be multifactorial including myopathy weakness and recent hospitalization. Medical debility. -Mild cognitive impairment likely from late onset Alzheimer's dementia -Chronic congestive heart failure from diastolic dysfunction EF 70% -COPD -Depression otherwise specified -GERD -Peripheral neuropathy -Chronic kidney dysfunction uses a walker -Chronic left-sided pleural effusion patient has declined thoracentesis -BPH with bladder outflow obstruction for which patient takes Flomax Plan: -IV fluids discontinued. Lasix continues to be held. Doing better. Hopefully DC the ECF tomorrow.
[2019-11-20] MEDS: DULoxetine HCL 20 MG CAPSULE.DR PO SCH (20:39)
[2019-11-21] MEDS: ATORVASTATIN 40 MG TAB PO SCH (07:56)
[2019-11-21] MEDS: METOPROLOL TARTRATE 12.5 MG TAB PO SCH (07:56)
[2019-11-21] MEDS: GABAPENTIN 300 MG CAP PO SCH (07:56)
[2019-11-21] MEDS: PANTOPRAZOLE 40 MG TABLET PO SCH (07:56)
[2019-11-21] MEDS: ACETAMINOPHEN TAB 325 MG TAB PO PRN (07:56)
[2019-11-21 08:29] VITALS: BP 101/54; PULSE 83; RESP 20; TEMP 98.4
--- NOTE | 2019-11-21 14:14 | P.DS ---
Providers Date of admission: 11/21/19 09:37 Expected date of discharge: 11/21/19 Attending physician: Trey Alfredo Primary care physician: Jerrell Lewis [facility] Course: Chief Complaint: Weakness for History of presenting complaint: This is a 84-year-old patient of Dr. Jerrell Naranjo. Patient was discharged on November 07 by my colleague was then admitted with CHF with EF around 30%,(COPD, depression, GERD, peripheral neuropathy, has some underlying dementia. Patient was then found her short of breath from acute hypoxic respiratory failure secondary to bilateral pleural effusion predominantly in the left side. Patient refused thoracentesis. Patient admitted from November 09 through November 12. Presented with a fall. Found to be mechanical. PEG tube that was not being used was removed. Patient yet again presents with weakness. Stated he felt dizzy. And fell down. Was thought able to get up. Needed assistance from his family. Appetite was okay. Tired and rundown a bit no fever no chills. Breathing is be stable. Patient only able to answer simple questions Admitted with medical debility from myopathy, deconditioning and dehydration. Lasix was discontinued. Given IV fluids. Seen by PTOT. Does of Neurontin was cut back. Today-has done better. Eating about 75%. For more cheerful. Discussed with the patient. Physical examination: VITAL SIGNS: 98.4, 83, 20, 101/54, 95% GENERAL: Laying in bed, comfortable EYES: Pupils equal. Conjunctiva normal. HEENT: External appearance of nose and ears normal, oral cavity grossly normal. NECK: JVD not raised; masses not palpable. HEART: First and second heart sounds are normal; no edema. LUNGS:[ Respiratory rate normal, diminished breath sounds. ABDOMEN: Soft, nontender, liver spleen not palpable, no masses palpable. PSYCH: Able to answer simple questionsl. MUSCULAR schedule: Evidence of OA INVESTIGATIONS, reviewed in the clinical context: Potassium 3.4 creatinine 0.86 Previous testing White count 15.9 hemoglobin 13.5 potassium 3.3 creatinine 0.94 bun 21 Troponin I 3 negative LDL 65 COVID 19 PCR-not detected EKG tracing personally reviewed by me-paced rhythm with A. fib Computed tomography scan of the brain-cerebral atrophy Chest x-ray film personally reviewed by me-left pleural effusion chronic Assessment: -Patient presented with episode of dizziness and fall unable to pick himself. Getting dizzy again. Has been eating okay. Seems to be multifactorial including myopathy weakness, dehydration. Medical debility. -Mild cognitive impairment likely from late onset Alzheimer's dementia -Chronic congestive heart failure from diastolic dysfunction EF 70% -COPD -Depression otherwise specified -GERD -Peripheral neuropathy -Chronic gait dysfunction uses a walker -Chronic left-sided pleural effusion patient has declined thoracentesis -BPH with bladder outflow obstruction for which patient takes Flomax Disposition: ECF/[facility] Patient Condition at Discharge: Stable Plan - Discharge Summary Discharge Rx Participant: Yes New Discharge Prescriptions: New Metoprolol Tartrate [Lopressor] 12.5 mg PO BID tab Gabapentin [Neurontin] 300 mg PO BID #6 cap Pantoprazole [Protonix] 40 mg PO AC-BRKFST tablet. Acetaminophen Tab [Tylenol] 650 mg PO Q6HR PRN tab PRN Reason: Fever And/ Or Pain Continue Omeprazole 20 mg PO AC-BRKFST DULoxetine HCL [Cymbalta] 20 mg PO HS Tamsulosin HCl [Flomax] 0.4 mg PO AC-SUPPER Atorvastatin [Lipitor] 40 mg PO DAILY 30 Days #30 tab Ibuprofen [Motrin Ib] 400 mg PO Q4H Discontinued Gabapentin [Neurontin] 400 mg PO TID Furosemide [Lasix] 40 mg PO BID 30 Days #60 tab Metoprolol Tartrate [Lopressor] 25 mg PO DAILY HYDROmorphone [Dilaudid] 2 mg PO QID Discharge Medication List DULoxetine HCL [Cymbalta] 20 mg PO HS 11/04/19 [History] Omeprazole 20 mg PO AC-BRKFST 11/04/19 [History] Tamsulosin HCl [Flomax] 0.4 mg PO AC-SUPPER 11/04/19 [History] Atorvastatin [Lipitor] 40 mg PO DAILY 30 Days #30 tab 11/08/19 [Rx] Ibuprofen [Motrin Ib] 400 mg PO Q4H 11/10/19 [History] Acetaminophen Tab [Tylenol] 650 mg PO Q6HR PRN tab 11/21/19 [Rx] Gabapentin [Neurontin] 300 mg PO BID #6 cap 11/21/19 [Rx] Metoprolol Tartrate [Lopressor] 12.5 mg PO BID tab 11/21/19 [Rx] Pantoprazole [Protonix] 40 mg PO AC-BRKFST tablet. 11/21/19 [Rx] Follow up Appointment(s)/Referral(s): Jerrell Lewis DO [Primary Care Provider] - As Needed Residential Home[facility] [NON-STAFF] -
== END 2019-11-21 16:04 | DRG 92 ==
LOC: EC 15:47 → 1SOBS 20:40 → 4SSUR 22:12 → OBSVTOIN 11-21 09:37
PROVIDERS: ADMIT Hospitalist; ATTEND Hospitalist
DX: G72.9 Myopathy, unspecified (principal); I50.32 Chronic diastolic (congestive) heart failure; J90 Pleural effusion, not elsewhere classified; N13.8 Other obstructive and reflux uropathy; Z11.59 Encounter for screening for other viral diseases; R62.7 Adult failure to thrive; G30.1 Alzheimer's disease with late onset; F02.80 Dementia in other diseases classified elsewhere, unspecified severity, without behavioral disturbance, psychotic disturbance, mood disturbance, and anxiety; I48.91 Unspecified atrial fibrillation; G31.9 Degenerative disease of nervous system, unspecified; I11.0 Hypertensive heart disease with heart failure; J44.9 Chronic obstructive pulmonary disease, unspecified; E86.0 Dehydration; E78.5 Hyperlipidemia, unspecified; F32.9 Major depressive disorder, single episode, unspecified; K21.9 Gastro-esophageal reflux disease without esophagitis; G62.9 Polyneuropathy, unspecified; N40.1 Benign prostatic hyperplasia with lower urinary tract symptoms; R53.81 Other malaise; R26.9 Unspecified abnormalities of gait and mobility; Z68.21 Body mass index [BMI] 21.0-21.9, adult; Z71.3 Dietary counseling and surveillance; Z79.899 Other long term (current) drug therapy; Z98.890 Other specified postprocedural states; Z91.81 History of falling
CPT/HCPCS: 36415; 70450; 71046; 80048; 80053; 80061; 82550; 83605; 83735; 83880; 84100; 84484; 85025; 85610; 85730; 93005; 96360; 99285

== ENCOUNTER 2020-03-13 14:40 | Observation (INO) | payer MEDICARE, BC ==
--- NOTE | 2020-03-13 15:47 | ED ---
Weakness HPI - General Chief complaint: Weakness Stated complaint: hypotension, hypothermia Source: patient, RN notes reviewed, old records reviewed Mode of arrival: EMS Limitations: no limitations - History of Present Illness Initial comments: This is a 84-year-old male DF for evaluation weakness patient is a poor strain secondary to clinical condition, patient coming in with his daughter are present at bedside was discharged from this hospital week was orthostatic at home. Patient denies any thoughts of pain but daughter states patient always denies any thoughts of pain MD Complaint: generalized weakness, lack of energy, difficulty walking Location: generalized Severity: severe Severity scale (1-10): 10 Consistency: constant Improves with: none Worsens with: none Context: recent illness, history of similar Associated Symptoms: confusion, shortness of breath, syncope - Related Data Home Medications Medication Instructions Recorded Confirmed DULoxetine HCL [Cymbalta] 20 mg PO HS 11/04/19 03/13/20 Omeprazole 20 mg PO AC-BRKFST 11/04/19 03/13/20 Tamsulosin HCl [Flomax] 0.4 mg PO AC-SUPPER 11/04/19 03/13/20 Furosemide [Lasix] 20 mg PO DAILY 03/13/20 03/13/20 Gabapentin [Neurontin] 400 mg PO TID 03/13/20 03/13/20 Ibuprofen [Motrin] 400 mg PO Q4H PRN 03/13/20 03/13/20 Magnesium Oxide [Magox 400] 400 mg PO DAILY 03/13/20 03/13/20 Metoprolol Tartrate [Lopressor] 12.5 mg PO DAILY 03/13/20 03/13/20 Spironolactone [Aldactone] 25 mg PO BID 03/13/20 03/13/20 Tiotropium [place] [Spiriva] 1 cap INHALATION RT-DAILY 03/13/20 03/13/20 Previous Rx's Medication Instructions Recorded Atorvastatin [Lipitor] 40 mg PO DAILY 30 Days #30 tab 11/08/19 Allergies Allergy/AdvReac Type Severity Reaction Status Date / Time No Known Allergies Allergy Verified 03/13/20 16:24 Review of Systems ROS Statement: Those systems with pertinent positive or pertinent negative responses have been documented in the HPI. ROS Other: All systems not noted in ROS Statement are negative. Past Medical History Past Medical History: Heart Failure, COPD, Hyperlipidemia, Hypertension Additional Past Medical History / Comment(s): feeding tube - History of Any Multi-Drug Resistant Organisms: None Reported Past Surgical History: Pacemaker Additional Past Surgical History / Comment(s): pace maker 07/2019 Past Anesthesia/Blood Transfusion Reactions: No Reported Reaction Type of Cardiac Device: Permanent Pacemaker Device Placement Date:: 07/2019 Past Psychological History: No Psychological Hx Reported Smoking Status: Former smoker Past Alcohol Use History: None Reported Past Drug Use History: None Reported - Past Family History Mother Family Medical History: No Reported History Father Family Medical History: No Reported History General Exam Limitations: no limitations General appearance: alert, in no apparent distress Head exam: Present: atraumatic, normocephalic, normal inspection Eye exam: Present: normal appearance, PERRL, EOMI. Absent: scleral icterus, conjunctival injection, periorbital swelling ENT exam: Present: normal exam, mucous membranes moist Neck exam: Present: normal inspection. Absent: tenderness, meningismus, lymphadenopathy Respiratory exam: Present: normal lung sounds bilaterally. Absent: respiratory distress, wheezes, rales, rhonchi, stridor Cardiovascular Exam: Present: regular rate, normal rhythm, normal heart sounds. Absent: systolic murmur, diastolic murmur, rubs, gallop, clicks GI/Abdominal exam: Present: soft, normal bowel sounds. Absent: distended, tenderness, guarding, rebound, rigid Extremities exam: Present: normal inspection, full ROM, normal capillary refill. Absent: tenderness, pedal edema, joint swelling, calf tenderness Back exam: Present: normal inspection Neurological exam: Present: alert, oriented X3, CN II-XII intact Psychiatric exam: Present: normal affect, normal mood Skin exam: Present: warm, dry, intact, normal color. Absent: rash Course Vital Signs 03/13/20 03/13/20 03/13/20 14:42 14:47 15:00 Temperature 98.3 F Pulse Rate 71 69 Respiratory 16 15 Rate Blood Pressure 104/57 104/57 O2 Sat by Pulse 90 L 100 Oximetry 03/13/20 03/13/20 03/13/20 16:00 16:41 16:48 Temperature Pulse Rate 69 70 70 Respiratory 17 16 16 Rate Blood Pressure 100/61 O2 Sat by Pulse 99 Oximetry - Reevaluation(s) Reevaluation #1: 03/13/20 16:59 Medical record is reviewed Reevaluation #2: 03/13/20 16:59 Patient has positive orthostatics which resulted in syncope Reevaluation #3: 03/13/20 16:59 spoke w patient family regarding findings, questions answered - Consultations Consultation #1: Spoke with Dr. Alfredo will admit this patient EKG Findings - EKG Comments: EKG Findings:: EKG shows paced rhythm 70 WI 224 QRS 172 QTC 511 Medical Decision Making - Medical Decision Making 84 male presents today for evaluation, patient's presenting for evaluation of weakness and a syncopal event syncopal event was occurred with orthostatics. Patient dehydrated on exam otherwise no complaints of pain. No signs or source of sepsis, patient to be admitted - Lab Data Result diagrams: 03/13/20 15:36 03/13/20 15:36 Lab Results 03/13/20 03/13/20 03/13/20 Range/Units 15:36 15:36 15:36 WBC 14.4 H (3.8-10.6) k/uL RBC 5.63 (4.30-5.90) m/uL Hgb 13.3 (13.0-17.5) gm/dL Hct 43.7 (39.0-53.0) % MCV 77.6 L (80.0-100.0) fL MCH 23.7 L (25.0-35.0) pg MCHC 30.5 L (31.0-37.0) g/dL RDW 19.9 H (11.5-15.5) % Plt Count 174 (150-450) k/uL Neutrophils % 55 % Lymphocytes % 34 % Monocytes % 7 % Eosinophils % 2 % Basophils % 1 % Neutrophils # 7.9 H (1.3-7.7) k/uL Lymphocytes # 5.0 H (1.0-4.8) k/uL Monocytes # 1.1 H (0-1.0) k/uL Eosinophils # 0.3 (0-0.7) k/uL Basophils # 0.1 (0-0.2) k/uL Hypochromasia Moderate Anisocytosis Slight Microcytosis Moderate PT 10.5 (9.0-12.0) sec INR 1.0 (<1.2) APTT 22.2 (22.0-30.0) sec Sodium 133 L (137-145) mmol/L Potassium 4.7 (3.5-5.1) mmol/L Chloride 104 (98-107) mmol/L Carbon Dioxide 25 (22-30) mmol/L Anion Gap 4 mmol/L BUN 24 H (9-20) mg/dL Creatinine 0.99 (0.66-1.25) mg/dL Est GFR (CKD-EPI)AfAm 79 (>60 ml/min/1.73 sqM) Est GFR (CKD-EPI)NonAf 69 (>60 ml/min/1.73 sqM) Glucose 128 H (74-99) mg/dL Plasma Lactic Acid Hector (0.7-2.0) mmol/L Calcium 8.3 L (8.4-10.2) mg/dL Phosphorus (2.5-4.5) mg/dL Magnesium (1.6-2.3) mg/dL Total Bilirubin 1.5 H (0.2-1.3) mg/dL AST 51 (17-59) U/L ALT 95 H (4-49) U/L Alkaline Phosphatase 89 (38-126) U/L Troponin I (0.000-0.034) ng/mL Total Protein 5.2 L (6.3-8.2) g/dL Albumin 2.8 L (3.5-5.0) g/dL 03/13/20 03/13/20 03/13/20 Range/Units 15:36 15:36 15:36 WBC (3.8-10.6) k/uL RBC (4.30-5.90) m/uL Hgb (13.0-17.5) gm/dL Hct (39.0-53.0) % MCV (80.0-100.0) fL MCH (25.0-35.0) pg MCHC (31.0-37.0) g/dL RDW (11.5-15.5) % Plt Count (150-450) k/uL Neutrophils % % Lymphocytes % % Monocytes % % Eosinophils % % Basophils % % Neutrophils # (1.3-7.7) k/uL Lymphocytes # (1.0-4.8) k/uL Monocytes # (0-1.0) k/uL Eosinophils # (0-0.7) k/uL Basophils # (0-0.2) k/uL Hypochromasia Anisocytosis Microcytosis PT (9.0-12.0) sec INR (<1.2) APTT (22.0-30.0) sec Sodium (137-145) mmol/L Potassium (3.5-5.1) mmol/L Chloride (98-107) mmol/L Carbon Dioxide (22-30) mmol/L Anion Gap mmol/L BUN (9-20) mg/dL Creatinine (0.66-1.25) mg/dL Est GFR (CKD-EPI)AfAm (>60 ml/min/1.73 sqM) Est GFR (CKD-EPI)NonAf (>60 ml/min/1.73 sqM) Glucose (74-99) mg/dL Plasma Lactic Acid Hector 2.0 (0.7-2.0) mmol/L Calcium (8.4-10.2) mg/dL Phosphorus 3.2 (2.5-4.5) mg/dL Magnesium 2.5 H (1.6-2.3) mg/dL Total Bilirubin (0.2-1.3) mg/dL AST (17-59) U/L ALT (4-49) U/L Alkaline Phosphatase (38-126) U/L Troponin I <0.012 (0.000-0.034) ng/mL Total Protein (6.3-8.2) g/dL Albumin (3.5-5.0) g/dL Critical Care Time Critical Care Time: Yes Total Critical Care Time: 31 Disposition Clinical Impression: Dizziness, Generalized weakness, Dehydration, Orthostatic hypotension, COPD (chronic obstructive pulmonary disease) Disposition: ADMITTED IP TO THIS HOSP Condition: Fair Is patient prescribed a controlled substance at d/c from ED?: No Referrals: Jerrell Lewis DO [Primary Care Provider] - 1-2 days
[2020-03-13 15:50] LABS: Anisocytosis Slight; Basophils # (A) 0.1 k/uL (0-0.2); Basophils % (A) 1 %; Eosinophils # (A) 0.3 k/uL (0-0.7); Eosinophils % (A) 2 %; HCT 43.7 % (39.0-53.0); HGB 13.3 gm/dL (13.0-17.5); Hypochromasia Moderate; Lymphocytes % (A) 34 %; MCH 23.7 pg (25.0-35.0); MCHC 30.5 g/dL (31.0-37.0); MCV 77.6 fL (80.0-100.0); Microcytosis Moderate; Monocytes # (A) 1.1 k/uL (0-1.0); Monocytes % (A) 7 %; Neutrophils # (A) 7.9 k/uL (1.3-7.7); Neutrophils % (A) 55 %; Platelet Count 174 k/uL (150-450); RBC 5.63 m/uL (4.30-5.90); RDW 19.9 % (11.5-15.5); WBC 14.4 k/uL (3.8-10.6)
[2020-03-13 15:59] LABS: Partial Thromboplastin Time 22.2 sec (22.0-30.0); Prothrombin Time 10.5 sec (9.0-12.0)
[2020-03-13] MEDS ORDERED: methylPREDNISolone SOD SUCCI 125 MG/2 ML VIAL IV STA (16:04)
[2020-03-13] MEDS ORDERED: SODIUM CHLORIDE 0.9% 1,000 ML IV STA ×2 (16:04)
[2020-03-13] MEDS ORDERED: IPRATROPIUM-ALBUTEROL 3 ML NEB INHALATION STA (16:04)
[2020-03-13 16:06] LABS: Albumin 2.8 g/dL (3.5-5.0); Calcium 8.3 mg/dL (8.4-10.2); Potassium 4.7 mmol/L (3.5-5.1); Total Bilirubin 1.5 mg/dL (0.2-1.3); Total Protein 5.2 g/dL (6.3-8.2)
--- NOTE | 2020-03-13 16:22 | XR ---
EXAMINATION TYPE: XR chest 2V DATE OF EXAM: 03/13/2020 COMPARISON: Prior chest x-ray 11/18/2019 HISTORY: Hypoxemia, abnormal chest x-ray TECHNIQUE: Frontal and lateral views of the chest are obtained. FINDINGS: Heart shows a stable appearance, there is a generator in left pectoral region, lead is pre sent in the right ventricle. Heart is enlarged. Stimulator is present superimposed of the chest cours ing towards the cervical spine as on prior. Basilar effusion with obscured left hemidiaphragm and lef t heart border again noted. No evident pneumothorax. Aorta is dense. IMPRESSION: Chronic left pleural effusion
[2020-03-13 16:36] LABS: Magnesium 2.5 mg/dL (1.6-2.3); Phosphorus 3.2 mg/dL (2.5-4.5)
[2020-03-13] MEDS ORDERED: LORazepam 2 MG/ML INJ IV PRN (16:55)
[2020-03-13] MEDS ORDERED: ONDANSETRON 4 MG/2 ML VIAL IVP PRN (16:55)
[2020-03-13] MEDS ORDERED: NALOXONE 0.4 MG/ML 1 ML VIAL IV PRN (16:55)
[2020-03-13] MEDS ORDERED: SODIUM CHLORIDE 0.9% 500 ML 500 ML IV STA (17:01)
[2020-03-13] MEDS ORDERED: cefTRIAXone IN SWFI 1,000 MG/10 ML SYRINGE IVP STA (17:01)
[2020-03-13] MEDS ORDERED: AZITHROMYCIN 500 MG in SODIUM CHLORIDE 0.9% 250 ML IVPB STA (17:01)
[2020-03-13] MEDS: DEXTROSE 5%-0.45% NACL 1,000 ML IV SCH (17:14)
[2020-03-13] MEDS ORDERED: methylPREDNISolone SOD SUCCI 125 MG/2 ML VIAL IV SCH (18:00)
[2020-03-13 18:56] LABS: Appearance,Urine Clear (Clear); Bilirubin,Urine Negative (Negative); Blood,Urine Negative (Negative); Color,Urine Yellow; Glucose,Urine (UA) Negative (Negative); Ketones,Urine Negative (Negative); Leukocyte Esterase,Urine Negative (Negative); Nitrite,Urine Negative (Negative); PH, Urine 6.5 (5.0-8.0); Protein,Urine Negative (Negative); Specific Gravity,Urine 1.012 (1.001-1.035); Urobilinogen,Urine <2.0 mg/dL (<2.0)
[2020-03-13] MEDS ORDERED: IPRATROPIUM-ALBUTEROL 3 ML NEB INHALATION SCH (20:00)
[2020-03-13] MEDS ORDERED: IPRATROPIUM-ALBUTEROL 3 ML NEB INHALATION PRN (21:57)
--- NOTE | 2020-03-13 22:36 | P.HPIM ---
History of Present Illness H&P Date: 03/13/20 Chief Complaint: Fall History of presenting complaint: is is a 84-year-old patient of Dr. Jerrell Naranjo. Chronic stable medical conditions include CHF with EF 70%,COPD, depression, GERD, peripheral neuropathy, has some underlying dementia, BPH, Chronic left-sided pleural effusion patient has declined thoracentesis. Patient has a baseline uses a walker. Presented to the ER with his daughter. Patient been feeling weak. Appetite is okay. Apparently patient fell backwards. Did not was consciousness. Has been feeling weak and tired. Denies any chest pain or palp itations. Baseline mild shortness of breath. No urinary symptoms. Patient not a good historian. No fever and chills. Review of systems: GEN.: Tired EYES: None HEENT: Decreased hearing NECK: None RESPIRATORY: Baseline shortness of breath CARDIOVASCULAR: None GASTROINTESTINAL: None GENITOURINARY: None MUSCULOSKELETAL: Pain in different joints LYMPHATICS: None HEMATOLOGICAL: None PSYCHIATRY: forgetful NEUROLOGICAL: Does use a walker Past medical history to include: Cognitive impairment, peripheral neuropathy, GERD, depression, permanent pacemaker, COPD, diastolic heart failure from EF of 70%, chronic pleural effusion-patient has refused thoracentesis, feeding tube Social history: No history of smoking or alcohol. Lives with his daughter. Does use a walker. Physical examination: VITAL SIGNS: 98.3, 71, 16, 104/57, 90% on room air GENERAL: BMI 17.1, laying in bed, tired EYES: Pupils equal. Conjunctiva normal. HEENT: External appearance of nose and ears normal, oral cavity grossly normal. Decreased hearing NECK: JVD not raised; masses not palpable. HEART: First and second heart sounds are normal; no edema. LUNGS: Respiratory rate increased, diminished breath sounds. ABDOMEN: Soft, nontender, liver spleen not palpable, no masses palpable. PSYCH: Able to answer simple questions. MUSCULAR schedule: Evidence of OA . Wasting of subcutaneous fat, decreased muscle mass NEUROLOGICAL: Cranial nerves grossly intact; no facial asymmetry, power and sensation grossly intact. LYMPHATICS: No lymph nodes palpable in the axilla and neck INVESTIGATIONS, reviewed in the clinical context: White count 14.4 hemoglobin 13.3 potassium 4.7 creatinine 0.99 UA negative EKG tracing personally reviewed by -AV dual paced rhythm Chest x-ray film personally reviewed by [id number] pleural effusion, pacemaker Assessment: -Patient presents with weakness times falling backwards. poor balance muscle weakness myopathy. Precipitating the fall. Denies any chest pain. -Mild cognitive impairment likely from late onset Alzheimer's dementia -Chronic congestive heart failure from diastolic dysfunction EF 70% -COPD -Depression otherwise specified -GERD -Peripheral neuropathy -Chronic gait dysfunction uses a walker -Chronic left-sided pleural effusion patient has declined thoracentesis -BPH with bladder outflow obstruction for which patient takes Flomax -Moderate protein calorie malnutrition, from decreased oral intake Plan: We'll give gentle hydration. Home medications resumed. Fall precautions. Encourage oral intake. Prognosis guarded. Add ensure 1 can 3 times a day. Repeat BMP in the morning. Past Medical History Past Medical History: Heart Failure, COPD, Hyperlipidemia, Hypertension Additional Past Medical History / Comment(s): feeding tube - History of Any Multi-Drug Resistant Organisms: None Reported Past Surgical History: Pacemaker Additional Past Surgical History / Comment(s): pace maker 07/2019 Past Anesthesia/Blood Transfusion Reactions: No Reported Reaction Type of Cardiac Device: Permanent Pacemaker Device Placement Date:: 07/2019 Past Psychological History: No Psychological Hx Reported Smoking Status: Former smoker Past Alcohol Use History: None Reported Past Drug Use History: None Reported - Past Family History Mother Family Medical History: No Reported History Father Family Medical History: No Reported History Medications and Allergies Home Medications Medication Instructions Recorded Confirmed Type DULoxetine HCL [Cymbalta] 20 mg PO HS 11/04/19 03/13/20 History Omeprazole 20 mg PO AC-BRKFST 11/04/19 03/13/20 History Tamsulosin HCl [Flomax] 0.4 mg PO AC-SUPPER 11/04/19 03/13/20 History Atorvastatin [Lipitor] 40 mg PO DAILY 30 Days #30 tab 11/08/19 03/13/20 Rx Furosemide [Lasix] 20 mg PO DAILY 03/13/20 03/13/20 History Gabapentin [Neurontin] 400 mg PO TID 03/13/20 03/13/20 History Ibuprofen [Motrin] 400 mg PO Q4H PRN 03/13/20 03/13/20 History Magnesium Oxide [Magox 400] 400 mg PO DAILY 03/13/20 03/13/20 History Metoprolol Tartrate [Lopressor] 12.5 mg PO DAILY 03/13/20 03/13/20 History Spironolactone [Aldactone] 25 mg PO BID 03/13/20 03/13/20 History Tiotropium [place] [Spiriva] 1 cap INHALATION RT-DAILY 03/13/20 03/13/20 History Allergies Allergy/AdvReac Type Severity Reaction Status Date / Time No Known Allergies Allergy Verified 03/13/20 16:24 Physical Exam Vitals: Vital Signs Temp Pulse Resp BP Pulse Ox 03/13/20 21:30 97.6 F 69 16 102/70 95 03/13/20 20:00 70 16 100/61 95 03/13/20 19:27 69 16 03/13/20 19:20 70 16 03/13/20 18:00 70 17 113/57 98 03/13/20 17:00 69 15 91/61 95 03/13/20 16:48 70 16 03/13/20 16:41 70 16 03/13/20 16:00 69 17 100/61 99 03/13/20 15:00 69 15 104/57 100 03/13/20 14:47 104/57 03/13/20 14:42 98.3 F 71 16 90 L Intake and Output 03/13/20 03/13/20 03/13/20 06:59 14:59 22:59 Other: Weight 57.153 kg Results CBC & Chem 7: 03/13/20 15:36 03/13/20 15:36 Labs: Abnormal Lab Results - Last 24 Hours (Table) 03/13/20 03/13/20 03/13/20 Range/Units 15:36 15:36 15:36 WBC 14.4 H (3.8-10.6) k/uL MCV 77.6 L (80.0-100.0) fL MCH 23.7 L (25.0-35.0) pg MCHC 30.5 L (31.0-37.0) g/dL RDW 19.9 H (11.5-15.5) % Neutrophils # 7.9 H (1.3-7.7) k/uL Lymphocytes # 5.0 H (1.0-4.8) k/uL Monocytes # 1.1 H (0-1.0) k/uL Sodium 133 L (137-145) mmol/L BUN 24 H (9-20) mg/dL Glucose 128 H (74-99) mg/dL Calcium 8.3 L (8.4-10.2) mg/dL Magnesium 2.5 H (1.6-2.3) mg/dL Total Bilirubin 1.5 H (0.2-1.3) mg/dL ALT 95 H (4-49) U/L Total Protein 5.2 L (6.3-8.2) g/dL Albumin 2.8 L (3.5-5.0) g/dL
[2020-03-14] MEDS: DULoxetine HCL 20 MG CAPSULE.DR PO SCH ×2 (02:22→20:21)
[2020-03-14] MEDS: GABAPENTIN 400 MG CAP PO SCH ×4 (02:22→20:21)
[2020-03-14] MEDS: LACTATED RINGERS 1,000 ML IV SCH ×2 (02:23→18:03)
[2020-03-14] MEDS: TAMSULOSIN 0.4 MG CAP.ER.24H PO SCH ×2 (02:42→17:52)
[2020-03-14] MEDS: DEXTROSE 5%-0.45% NACL 1,000 ML IV SCH ×2 (05:16→18:03)
[2020-03-14 06:51] LABS: Anisocytosis Slight; Basophils % (A) 0 %; Eosinophils % (A) 0 %; HCT 42.1 % (39.0-53.0); HGB 12.4 gm/dL (13.0-17.5); Hypochromasia Marked; Lymphocytes # (A) 2.1 k/uL (1.0-4.8); Lymphocytes % (A) 22 %; MCH 23.3 pg (25.0-35.0); MCHC 29.4 g/dL (31.0-37.0); MCV 79.2 fL (80.0-100.0); Mean Platelet Volume 8.7; Microcytosis Slight; Monocytes # (A) 0.1 k/uL (0-1.0); Monocytes % (A) 2 %; Neutrophils # (A) 7.3 k/uL (1.3-7.7); Neutrophils % (A) 76 %; Platelet Count 182 k/uL (150-450); RBC 5.31 m/uL (4.30-5.90); RDW 19.7 % (11.5-15.5); WBC 9.6 k/uL (3.8-10.6)
[2020-03-14] MEDS: IPRATROPIUM-ALBUTEROL 3 ML NEB INHALATION SCH ×4 (07:11→19:36)
[2020-03-14 09:09] LABS: African American GFR (CKD) 78.6 (60.0-200.0); Albumin 3.3 g/dL (3.80-4.90); Albumin/Globulin Ratio 1.83 (1.60-3.17); Anion Gap 8.5 mmol/L (4.00-12.00); Calcium 8.2 mg/dL (8.7-10.3); Carbon Dioxide 22.5 mmol/L (21.6-31.8); Globulin 1.8 g/dL (1.6-3.3); Non-African American GFR(CKD) 67.8 (60.0-200.0); Phosphorus 2.6 mg/dL (2.4-5.1); Potassium 4.7 mmol/L (3.5-5.5); Total Bilirubin 0.8 mg/dL (0.2-1.2); Total Protein 5.1 g/dL (6.2-8.2)
[2020-03-14] MEDS: MAGNESIUM OXIDE 400 MG TAB PO SCH (10:33)
[2020-03-14] MEDS: METOPROLOL TARTRATE 12.5 MG TAB PO SCH (10:33)
[2020-03-14] MEDS: PANTOPRAZOLE 40 MG TABLET PO SCH (10:33)
[2020-03-14] MEDS: ACETAMINOPHEN TAB 325 MG TAB PO PRN (10:41)
[2020-03-14 12:12] VITALS: BMI 19.1
--- NOTE | 2020-03-14 19:23 | P.PN ---
Progress Note - Text Progress Note Date: 03/14/20 Chief Complaint: Fall History of presenting complaint: is is a 84-year-old patient of Dr. Jerrell Naranjo. Chronic stable medical conditions include CHF with EF 70%,COPD, depression, GERD, peripheral neuropathy, has some underlying dementia, BPH, Chronic left-sided pleural effusion patient has declined thoracentesis. Patient has a baseline uses a walker. Presented to the ER with his daughter. Patient been feeling weak. Appetite is okay. Apparently patient fell backwards. Did not was consciousness. Has been feeling weak and tired. Denies any chest pain or palpitations. Baseline mild shortness of breath. No urinary symptoms. Patient not a good historian. No fever and chills. Admitted with weakness, myopathy, dehydration. Diuretics cutback. Started IV fluids. Today-feeling better. Laying in bed. Eating better. Review of systems: Was done for constitutional, cardiovascular, GI, pulmonary. relevant finding as above Active Medications Acetaminophen (Acetaminophen Tab 325 Mg Tab) 650 mg PO Q4HR PRN PRN Reason: Fever and/ or Pain Last Admin: 03/14/20 10:41 Dose: 650 mg Documented by: Albuterol/Ipratropium (Ipratropium-Albuterol 3 Ml Neb) 3 ml INHALATION RT-QID [facility] Last Admin: 03/14/20 15:16 Dose: 3 ml Documented by: Albuterol/Ipratropium (Ipratropium-Albuterol 3 Ml Neb) 3 ml INHALATION RT-Q4H PRN PRN Reason: Shortness Of Breath Or Wheezing Duloxetine HCl (Duloxetine Hcl 20 Mg Tahmina.) 20 mg PO HS [facility] Last Admin: 03/14/20 02:22 Dose: 20 mg Documented by: Gabapentin (Gabapentin 400 Mg Cap) 400 mg PO TID [facility] Last Admin: 03/14/20 15:56 Dose: 400 mg Documented by: Dextrose/Sodium Chloride (Dextrose 5%-1/2ns Iv Soln) 1,000 mls @ 85 mls/hr IV .[id number] [facility] Last Admin: 03/14/20 18:03 Dose: Not Given Documented by: Lactated Ringer's (Lactated Ringers) 1,000 mls @ 50 mls/hr IV .Q20H [facility] Last Admin: 03/14/20 18:03 Dose: Not Given Documented by: Lorazepam (Lorazepam 2 Mg/Ml Inj) 0.5 mg IV Q6HR PRN PRN Reason: Anxiety Magnesium Oxide (Magnesium Oxide 400 Mg Tab) 400 mg PO DAILY [facility] Last Admin: 03/14/20 10:33 Dose: 400 mg Documented by: Metoprolol Tartrate (Metoprolol Tartrate 12.5 Mg Tab) 12.5 mg PO DAILY [facility] Last Admin: 03/14/20 10:33 Dose: 12.5 mg Documented by: Naloxone HCl (Naloxone 0.4 Mg/Ml 1 Ml Vial) 0.2 mg IV Q2M PRN PRN Reason: Opioid Reversal Ondansetron HCl (Ondansetron 4 Mg/2 Ml Vial) 4 mg IVP Q8HR PRN PRN Reason: Nausea And Vomiting Pantoprazole Sodium (Pantoprazole 40 Mg Tablet) 40 mg PO AC-BRKFST [facility] Last Admin: 03/14/20 10:33 Dose: 40 mg Documented by: Tamsulosin HCl (Tamsulosin 0.4 Mg Cap.Er.24h) 0.4 mg PO AC-SUPPER [facility] Last Admin: 03/14/20 17:52 Dose: 0.4 mg Documented by: Physical examination: VITAL SIGNS: 97.4, 70, 18, 130/64, 98% room air GENERAL: Laying in bed, more awake today EYES: Pupils equal. Conjunctiva normal. HEENT: Decreased hearing NECK: JVD not raised; masses not palpable. HEART: First and second heart sounds are normal; no edema. LUNGS: Respiratory rate increased, diminished breath sounds. ABDOMEN: Soft, nontender, liver spleen not palpable, no masses palpable. PSYCH: Able to answer simple questions. MUSCULAR schedule: Evidence of OA . Wasting of subcutaneous fat, decreased muscle mass INVESTIGATIONS, reviewed in the clinical context: White count 9.6 hemoglobin 12.4 potassium 4.7 creatinine 1 White count 14.4 hemoglobin 13.3 potassium 4.7 creatinine 0.99 UA negative EKG tracing personally reviewed by me-AV dual paced rhythm Chest x-ray film personally reviewed by [id number] pleural effusion, pacemaker Assessment: -Clinical dehydration leading to falls. Was thing medical debility -Patient presents with weakness times falling backwards. poor balance muscle weakness myopathy. Precipitating the fall. Denies any chest pain. -Mild cognitive impairment likely from late onset Alzheimer's dementia -Chronic congestive heart failure from diastolic dysfunction EF 70% -COPD -Depression otherwise specified -GERD -Peripheral neuropathy -Chronic gait dysfunction uses a walker -Chronic left-sided pleural effusion patient has declined thoracentesis -BPH with bladder outflow obstruction for which patient takes Flomax -Moderate protein calorie malnutrition, from decreased oral intake Plan: Continue current medication treatment plan. Will DC the IV fluids today. Oral prognosis guarded. Keep patient off Lasix. Keep on Aldactone at 25 mg daily. Hopefully discharge tomorrow.
[2020-03-14 20:22] VITALS: RESP 17; TEMP 97.9
[2020-03-15 04:25] VITALS: BP 118/62
[2020-03-15] MEDS: DEXTROSE 5%-0.45% NACL 1,000 ML IV SCH (04:29)
[2020-03-15] MEDS: IPRATROPIUM-ALBUTEROL 3 ML NEB INHALATION SCH ×2 (07:12→11:14)
[2020-03-15] MEDS: METOPROLOL TARTRATE 12.5 MG TAB PO SCH (09:47)
[2020-03-15] MEDS: PANTOPRAZOLE 40 MG TABLET PO SCH (09:47)
[2020-03-15] MEDS: GABAPENTIN 400 MG CAP PO SCH (09:47)
[2020-03-15] MEDS: ACETAMINOPHEN TAB 325 MG TAB PO PRN (09:47)
[2020-03-15] MEDS: MAGNESIUM OXIDE 400 MG TAB PO SCH (09:47)
[2020-03-15 11:27] VITALS: PULSE 72
--- NOTE | 2020-03-15 17:43 | P.DS ---
Providers Date of admission: 03/13/20 16:56 Expected date of discharge: 03/15/20 Attending physician: Trey Alfredo Primary care physician: Jerrell Lewis [facility] Course: Chief Complaint: Fall History of presenting complaint: is is a 84-year-old patient of Dr. Jerrell Naranjo. Chronic stable medical conditions include CHF with EF 70%,COPD, depression, GERD, peripheral neuropathy, has some underlying dementia, BPH, Chronic left-sided pleural effusion patient has declined thoracentesis. Patient has a baseline uses a walker. Presented to the ER with his daughter. Patient been feeling weak. Appetite is okay. Apparently patient fell backwards. Did not was consciousness. Has been feeling weak and tired. Denies any chest pain or palpitations. Baseline mild shortness of breath. No urinary symptoms. Patient not a good historian. No fever and chills. Admitted with weakness, myopathy, dehydration. Diuretics cutback. Started IV fluids. Responded well. Today-Eating well. Communicating. Lasix discontinued. Dose of Aldactone cutback. Physical examination: VITAL SIGNS: 97.9, 70, 17, 118/62, 97% room air GENERAL: Laying in bed, comfortable EYES: Pupils equal. Conjunctiva normal. HEENT: Decreased hearing NECK: JVD not raised; masses not palpable. HEART: First and second heart sounds are normal; no edema. LUNGS: Respiratory rate increased, diminished breath sounds. ABDOMEN: Soft, nontender, liver spleen not palpable, no masses palpable. PSYCH: Able to answer simple questions. MUSCULAR schedule: Evidence of OA . Wasting of subcutaneous fat, decreased muscle mass INVESTIGATIONS, reviewed in the clinical context: White count 9.6 hemoglobin 12.4 potassium 4.7 creatinine 1 White count 14.4 hemoglobin 13.3 potassium 4.7 creatinine 0.99 UA negative EKG tracing personally reviewed by me-AV dual paced rhythm Chest x-ray film personally reviewed by [id number] pleural effusion, pacemaker Assessment: -Clinical dehydration leading to falls. Worsening medical debility -Patient presents with weakness times falling backwards. poor balance muscle weakness myopathy. Precipitating the fall. Denies any chest pain. -Mild cognitive impairment likely from late onset Alzheimer's dementia -Chronic congestive heart failure from diastolic dysfunction EF 70% -COPD -Depression otherwise specified -GERD -Peripheral neuropathy -Chronic gait dysfunction uses a walker -Chronic left-sided pleural effusion patient has declined thoracentesis -BPH with bladder outflow obstruction for which patient takes Flomax -Moderate protein calorie malnutrition, from decreased oral intake Disposition: Home Patient Condition at Discharge: Stable Plan - Discharge Summary Discharge Rx Participant: No New Discharge Prescriptions: New Ipratropium-Albuterol Nebulize [Duoneb 0.5 mg-3 mg/3 ml Soln] 3 ml INHALATION TID #90 ml Continue Omeprazole 20 mg PO AC-BRKFST DULoxetine HCL [Cymbalta] 20 mg PO HS Tamsulosin HCl [Flomax] 0.4 mg PO AC-SUPPER Tiotropium [place] [Spiriva] 1 cap INHALATION RT-DAILY Metoprolol Tartrate [Lopressor] 12.5 mg PO DAILY Magnesium Oxide [Magox 400] 400 mg PO DAILY Gabapentin [Neurontin] 400 mg PO TID Ibuprofen [Motrin] 400 mg PO Q4H PRN PRN Reason: Pain Changed Spironolactone [Aldactone] 25 mg PO DAILY #0 Discontinued Atorvastatin [Lipitor] 40 mg PO DAILY 30 Days #30 tab Furosemide [Lasix] 20 mg PO DAILY Discharge Medication List DULoxetine HCL [Cymbalta] 20 mg PO HS 11/04/19 [History] Omeprazole 20 mg PO AC-BRKFST 11/04/19 [History] Tamsulosin HCl [Flomax] 0.4 mg PO AC-SUPPER 11/04/19 [History] Gabapentin [Neurontin] 400 mg PO TID 03/13/20 [History] Ibuprofen [Motrin] 400 mg PO Q4H PRN 03/13/20 [History] Magnesium Oxide [Magox 400] 400 mg PO DAILY 03/13/20 [History] Metoprolol Tartrate [Lopressor] 12.5 mg PO DAILY 03/13/20 [History] Tiotropium [place] [Spiriva] 1 cap INHALATION RT-DAILY 03/13/20 [History] Ipratropium-Albuterol Nebulize [Duoneb 0.5 mg-3 mg/3 ml Soln] 3 ml INHALATION TID #90 ml 03/15/20 [Rx] Spironolactone [Aldactone] 25 mg PO DAILY #0 03/15/20 [Rx] Follow up Appointment(s)/Referral(s): [facility],Equipment [NON-STAFF] - (Contact [facility] for any questions regarding your nebulizer machine. ) Jerrell Lewis, [Primary Care Provider] - 1-2 days Ambulatory/Diagnostic Orders: Basic Metabolic Panel [LAB.AMB] Time Frame: 4 Days, Location: None Selected Activity/Diet/Wound Care/Special Instructions: bmp - 4 days script given for duo neb (1.5-3) TID nebulizer for home use Discharge Disposition: HOME WITH HOME HEALTH SERVICES
== END 2020-03-15 13:12 | disposition home health service (06) ==
LOC: EC 14:40 → 6NMEDSUR 16:56
PROVIDERS: ADMIT Hospitalist; ATTEND Hospitalist
DX: E86.0 Dehydration (principal); W19.XXXA Unspecified fall, initial encounter; I95.1 Orthostatic hypotension; T68.XXXA Hypothermia, initial encounter; I11.0 Hypertensive heart disease with heart failure; I50.32 Chronic diastolic (congestive) heart failure; J44.9 Chronic obstructive pulmonary disease, unspecified; G31.84 Mild cognitive impairment of uncertain or unknown etiology; E78.5 Hyperlipidemia, unspecified; F32.9 Major depressive disorder, single episode, unspecified; Z87.891 Personal history of nicotine dependence; N40.1 Benign prostatic hyperplasia with lower urinary tract symptoms; E44.0 Moderate protein-calorie malnutrition; Z95.0 Presence of cardiac pacemaker; N13.8 Other obstructive and reflux uropathy; K21.9 Gastro-esophageal reflux disease without esophagitis; G62.9 Polyneuropathy, unspecified; J90 Pleural effusion, not elsewhere classified; G72.9 Myopathy, unspecified; R26.89 Other abnormalities of gait and mobility; Z79.899 Other long term (current) drug therapy; N32.0 Bladder-neck obstruction
CPT/HCPCS: 96361 ×3; 96365; 96375; 99291; 36415; 94640 ×5; 94760; 93005; 80053 ×2; 83605; 83735 ×2; 84100 ×2; 84484; 85025 ×2; 85610; 85730; 81003; 71046; G0378 ×3; J2930; J0456; J0696